=== PATIENT | male | born 1935 | race Caucasian/White ===

== ENCOUNTER 2017-10-25 14:04 | Inpatient (IN) | payer MEDICARE, OTHER, SELFPAY ==
[2017-10-25] VITALS (25 sets, daily range): BP systolic 123–181; BP diastolic 60–79; PULSE 70–102; RESP 12–33; TEMP 36.8–36.9; O2SAT 79–98; BMI 34.6; BMI 33.0
--- NOTE | 2017-10-25 14:23 | RAD_ITS ---
STUDY: X-RAY CHEST REASON FOR EXAM: Male, 82 years old. Shortness of breath. TECHNIQUE: Single AP portable view of the chest. COMPARISON: Comparison is made with prior study dated April 26, 2010. FINDINGS: EKG electrodes are seen. There now is evidence of a multiple patchy nodular infiltrates in the right lung and to a lesser degree in the left lung. Bilateral pneumonic infiltrates should be ruled out. Underlying pulmonary metastasis cannot be excluded. Radiographic follow-up is recommended. Sternal cerclage wires and vascular clips are present from a prior sternotomy and coronary artery bypass graft procedure (CABG). Moderate cardiomegaly. A left-sided unipolar pacemaker is seen. Normal mediastinum and amauri. Normal visualized pulmonary arteries. There is atherosclerotic calcification of the aortic arch with tortuosity. Normal visualized thoracic spine. There is degenerative osteoarthritis of the bilateral shoulders. There is no demonstrated abnormality of the visualized soft tissue structures of the upper abdomen. RAD/Chest 1 View (Portable) IMPRESSION: Patchy infiltrates with nodular appearance in the right lung as described and to a lesser degree on the left side. Bilateral pneumonic infiltrates should be ruled out. Underlying metastasis cannot be excluded. Radiographic follow-up is recommended. Electronically Signed: Paul Nair MD at 14:42 EDT Tel [phone], Service support ,
[2017-10-25] MEDS: Ipratropium/Albuterol Sulfate 3 ML AMPUL.NEB INHALATION ×3 (14:38→23:30)
[2017-10-25 14:46] LABS: Absolute Lymphocyte Count 0.58 X10^3/ul (0.83-4.51); Absolute Neutrophil Count 4.6 X10^3/uL (2.0-7.7); Basophil# 0.01 X10^3/uL; Basophil% 0.2 % (0-1); Hematocrit 34.7 % (40-54); Hemoglobin 11.2 g/dl (13.0-16.5); Lymphocyte # 0.58 X10^3/ul (4.0); Lymphocyte % 10.7 % (19-41); Mean Corp Hgb Conc 32.3 g/gl (32-36); Mean Corpuscular Volume 89.9 fL (80-94); Mean Platelet Vol. 9.2 fl (6.2-12.0); Monocyte# 0.26 X10^3/uL; Monocyte% 4.8 % (0-10); Neutrophil # 4.55 X10^3/uL (2.7-7.7); Neutrophil % 84.1 % (47-70); Platelet Count 170 K/mm3 (150-450); RBC Distribution Width CV 14.3 % (11.6-14.6); RBC Distribution Width SD 46.9 fl (35.1-43.9); Red Blood Count 3.86 M/mm3 (4.6-6.2); White Blood Count 5.4 K/mm3 (4.4-11.0)
[2017-10-25 14:49] LABS: Differential Indicated SCAN CRITERIA MET; POSITIVE COUNT NO; POSITIVE DIFFERENTIAL YES; POSITIVE MORPHOLOGY YES
[2017-10-25 14:52] LABS: Anion Gap 12 (5-15); BUN 30 mg/dL (7-18); BUN/Creat Ratio 20.8 RATIO (10-20); Calcium,Total 8.2 mg/dL (8.5-10.1); Chloride 99 mmol/L (98-107); Creatinine, Serum 1.44 mg/dL (0.70-1.30); EST Glomerular Filtration Rate 50 mL/min (>60); Est Glom Filt Rate - Afr Amer 61 mL/min (>60); Estimated Creatinine Clearance 46.24 ml/min; Glucose 307 mg/dL (74-106); Potassium 3.6 mmol/L (3.5-5.1); Sodium Level 136 mmol/L (136-145)
[2017-10-25 15:12] LABS: BNP,B-Type NATRIURETIC PEPTIDE 269.5 pg/mL (0-100)
[2017-10-25 15:20] LABS: International Normalized Ratio 6.6
[2017-10-25 15:34] LABS: Lactic Acid 2.9 mmol/L (0.4-2.0)
[2017-10-25] MEDS: Ceftriaxone 1 GM/50 ML BAG IV ×2 (15:59→17:59)
--- NOTE | 2017-10-25 16:14 | HP.PCM_ITS ---
Problem List (1) Severe sepsis Status: Acute (2) Supratherapeutic INR Status: Acute (3) Persistent atrial fibrillation Status: Chronic History of Present Illness Date of Admission: 10/25/17 The patient is a 82 year old M with a significant history of A. fib, pacemaker, aortic valve repair, type 2 diabetes, hypertension, CAD status post stents who presented because of progressively worsening shortness of breath ?2-3 days. His shortness of breath is exacerbated with walking short distances like going to the bathroom. Associated with his symptoms is orthopnea. At the ED patient oxygen saturation was in the 70s. Patient was placed on the BiPAP with improvement. However the patient requested that his BiPAP should be discontinued since he could not tolerate it. And he was subsequently placed on Ventimask with saturation of 90-91%. Past Medical History Past Medical History (Chronic Problems): Chronic Problems Persistent atrial fibrillation (Chronic) Allergies metoprolol [From Toprol XL] Allergy (Verified 10/25/17 14:11) Other morphine Allergy (Verified 10/25/17 14:11) Other simvastatin Allergy (Verified 10/25/17 14:11) Other spironolactone Allergy (Verified 10/25/17 14:11) Other sulfamethoxazole [From Bactrim] Adverse Reaction (Verified 10/25/17 14:11) Unknown trimethoprim [From Bactrim] Adverse Reaction (Verified 10/25/17 14:11) Unknown Home Medications: Ambulatory Orders Medication Instructions Recorded Aspirin [Aspirin EC] 81 mg PO BREAKFAST 04/26/16 Atorvastatin Calcium [Lipitor] 80 mg PO QHS 04/26/16 Furosemide [Lasix] 40 mg PO BID 04/26/16 Glimepiride [Amaryl] 8 mg PO DAILY 04/26/16 Insulin Lispro [Humalog Kwikpen] 16 unit SQ TID 04/26/16 Labetalol [Trandate] 100 mg PO BID 04/26/16 Losartan Potassium [Cozaar] 25 mg PO DAILY 04/26/16 Tamsulosin HCl [Flomax] 0.4 mg PO BID 04/26/16 Zolpidem Tartrate [Ambien 5 mg PO QHS PRN PRN 04/26/16 (Generic)] Insulin Glargine [Lantus SoloStar 58 units SQ QHS 10/25/17 Pen] Polyethylene Glycol 3350 [[id number]] 17 gm PO DAILY 10/25/17 Potassium Chloride [Klor-Con M20] 20 meq PO DAILY 10/25/17 Warfarin Sodium 5 mg PO DAILY 10/25/17 Warfarin Sodium [Warfarin Sodium] 4 mg PO DAILY 10/25/17 Surgical History: - - Heart valve replacement. Smoking Status: Former smoker Alcohol: None Drugs: None Review of Systems Constitutional: Reports: Fatigue HEENT: Denies: Head Aches, Sinus Congestion, Sinus Drainage Cardiovascular: Reports: Orthopnea Respiratory: Reports: Shortness of breath at rest, Shortness of breath upon exertion, Sputum production Gastrointestinal: Denies: Abdominal Pain, Nausea, Vomiting Genitourinary: Denies: Dysuria Musculoskeletal: Denies: Joint Pain, Joint Tenderness Skin: Denies: Rash, Wounds Neurological: Denies: Numbness, Tingling, Focal weakness Psychiatric: Denies: Anxiety, Depression, Homicidal Ideations, Suicidal Ideations Hematologic/ Lymphatic: Denies: Easy Bruising, Easy Bleeding VTE Information - Inpt Only VTE Present on Admission: No VTE Mechan Device Prophylaxis: SCD's Reason prophylaxis not ordered:: Medical Contraindication Patient Problems: Active and Suspected Problems Severe sepsis (Acute) Supratherapeutic INR (Acute) - Physical Exam General: Alert, Oriented x3, Cooperative HEENT: Atraumatic, PERRLA, EOMI, Normocephalic Neck: Supple, No JVD, Negative Carotid Bruits Lungs: Diminished Cardiovascular: Regular rate, No murmurs Abdomen: Bowel Sounds Present, Soft, Non Tender Extremities: - - Cyanotic lower extremities Skin: No rashes, No breakdown Musculoskeletal: No Tenderness to Palpation of Joints or Extremities Neurological: Cranial nerves II-XII grossly intact Psych/Mental Status: Anxious Vital Signs Temp Pulse Resp BP Pulse Ox 98.2 F 73 20 H 123/63 H 94 10/25/17 14:05 10/25/17 16:04 10/25/17 16:04 10/25/17 16:04 10/25/17 16:04 Oxygen Flow Rate (L/min) 6 Oxygen Delivery Method Venturi Mask Weight: 119 kg Body Mass Index (BMI) 34.6 Laboratory Tests Past 24 Hrs 10/25/17 10/25/17 10/25/17 14:15 14:15 14:15 WBC 5.4 RBC 3.86 L Hgb 11.2 L Hct 34.7 L MCV 89.9 MCH 29.0 MCHC 32.3 RDW 14.3 RDW Differential 46.9 H Plt Count 170 MPV 9.2 Immature Gran % (Auto) 0.200 Neut % (Auto) 84.1 H Lymph % (Auto) 10.7 L [place] % (Auto) 4.8 Eos % (Auto) 0.0 Baso % (Auto) 0.2 Absolute Neuts (auto) 4.6 Absolute Lymphs (auto) 0.58 L Total Counted Not Reportable Differential Comment COMMENT PT 58.0 H INR 6.6 H* Sodium 136 Potassium 3.6 Chloride 99 Carbon Dioxide 25.0 Anion Gap 12 BUN 30 H Creatinine 1.44 H Estim Creat Clear Calc 46.24 Est GFR (MDRD) Af Amer 61 Est GFR (MDRD) Non-Af 50 L BUN/Creatinine Ratio 20.8 H Glucose 307 H Lactic Acid Calcium 8.2 L Troponin I 0.027 B-Natriuretic Peptide 10/25/17 10/25/17 14:15 14:52 WBC RBC Hgb Hct MCV MCH MCHC RDW RDW Differential Plt Count MPV Immature Gran % (Auto) Neut % (Auto) Lymph % (Auto) [place] % (Auto) Eos % (Auto) Baso % (Auto) Absolute Neuts (auto) Absolute Lymphs (auto) Total Counted Differential Comment PT INR Sodium Potassium Chloride Carbon Dioxide Anion Gap BUN Creatinine Estim Creat Clear Calc Est GFR (MDRD) Af Amer Est GFR (MDRD) Non-Af BUN/Creatinine Ratio Glucose Lactic Acid 2.9 H Calcium Troponin I B-Natriuretic Peptide 269.5 H Assessment/Plan All Active Problems Severe sepsis (Acute) Supratherapeutic INR (Acute) 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) Type 2 diabetes mellitus with other circulatory complications (Acute) Venous ulcer of right leg (Resolved) Venous (peripheral) insufficiency (Resolved) Patient is a 82 year old M with a significant history of HTN, A. fib, pacemaker , aortic valve repair, type 2 diabetes, hypertension, CAD status post stents who presented because of progressively worsening shortness of breath ?2-3 days. Severe sepsis secondary to community-acquired pneumonia (multilobar pneumonia) Lactic acid: 2.8>2.9 RR ~ 30s Tachycardia on admission Severe hypoxia with oxygen saturation in 70s Blood culture ?2 is pending BNP 269.5 Chest x-ray was read as patchy infiltrates with nodular appearance in the right lung and to a lesser degree on the left side. Reading could not exclude exclude underlying metastasis. Radiographic follow-up was recommended. Respiratory Gram stain and culture pending Azithromycin and ceftriaxone continued IV hydration. DuoNeb scheduled. Albuterol as needed Aggressive pulmonary toileting Legionella antigen screen and Strep antigen ordered Prednisone due to severity of his condition. TESSIE creatinine 1.44 Creatinine on 05/26/2016 was 0.95. This could be due to sepsis or prerenal. IV hydration Home losartan was discontinued Avoid nephrotoxic Diabetes mellitus with acute hyperglycemia Blood glucose at admission was at 307 Lantus, prandial Lispro, correction Lispro and Amaryl. Adjust as necessary Supratherapeutic INR INR: 6.6 Hold Coumadin. PT/INR daily. Hypertension Continue home labetalol Losartan discontinued secondary to [place] I. Amlodipine added. Hydralazine as needed. A. fib Coumadin on hold as above Labetalol continued DVT prophylaxis Supratherapeutic on Coumadin. SCD. Code Visit Inpatient E&M: 44126 Init Hosp L2
--- NOTE | 2017-10-25 17:38 | NURSING ---
received paper report at 173, called down to ER at 173 requested to speak with nurse taking care of patient to let her know she could bring the patient up whenever she is ready. Asked if they could draw the lactic acid since it has to be drawn before 1751 and Diane YANG RN stated that they would draw the lactic and then come right up with the patient.
[2017-10-25 17:51] LABS: Bedside Glucose 261 mg/dL (70-110)
[2017-10-25] MEDS: Ondansetron 4 MG/2 ML Vial IV (18:08)
[2017-10-25] MEDS: Morphine 4 MG/ML Syringe IV (18:08)
--- NOTE | 2017-10-25 18:33 | NURSING ---
1833 patient arrived on unit from ER
--- NOTE | 2017-10-25 18:50 | ED.RN ---
at 1740 pt assisted up to bedside commode by another rn. pt then complained of abdominal pain, morphine and zofran given. pt assisted back into bed. pt 02 sat 88% on nrb at 15l. pt placed back onto bipap per dr. becerra order. pt now resting. denies pain. will continue to monitor.
[2017-10-25 19:01] LABS: Reflex Lactate? Y
[2017-10-25] MEDS: 0.9% Normal Saline 1,000 ML 75 ML IV (19:22)
--- NOTE | 2017-10-25 19:25 | NURSING ---
reviewed D Malcolm RN charting and agree with assessment findings
[2017-10-25 19:51] LABS: Lactic Acid 2.8 mmol/L (0.4-2.0)
[2017-10-25 20:25] LABS: M R Staph aureus DNA By PCR Negative (Negative); Probe Check PASS; Specimen Processing Control PASS
[2017-10-25] MEDS: amLODIPine 10 MG Tablet PO (21:25)
[2017-10-25] MEDS: Insulin Lispro 100 UNIT/ML INSULN.PEN SQ (21:26)
[2017-10-25] MEDS: guaiFENesin 1,200 MG Tablet 1200 MG PO (21:28)
[2017-10-25] MEDS: Atorvastatin Calcium 80 MG Tablet PO (21:28)
[2017-10-25] MEDS: Acetaminophen 325 MG Tablet 650 MG PO (21:29)
[2017-10-25] MEDS: Labetalol 100 MG Tablet PO (21:29)
[2017-10-25 21:46] LABS: Bedside Glucose 249 mg/dL (70-110)
[2017-10-25 22:33] LABS: Lactic Acid 2.1 mmol/L (0.4-2.0)
[2017-10-26] VITALS (38 sets, daily range): BP systolic 110–174; BP diastolic 53–100; PULSE 66–99; RESP 12–31; TEMP 36.5–37; O2SAT 85–99
[2017-10-26 01:48] LABS: Reflex Lactate? Y
--- NOTE | 2017-10-26 02:00 | NURSING ---
Pt refusing SCDs at this time despite much education. Pt verbalizing understanding of indications for SCDs as well as possible consequences as a result of refusal.
--- NOTE | 2017-10-26 03:08 | NURSING ---
Pt has removed NRB mask and states I can't wear it anymore pt also refusing to wear BiPAP. Much education provided by this RN and YULY Ricardo. Pt verbalizing understanding and continues to refuse to wear either NRB or BiPAP. Breathing continues to be labored with a congestive cough, pulse ox 74% on RA. 6L NC applied pt tolerating at this time, pulse ox increasing to 87%.
[2017-10-26] MEDS: Ipratropium/Albuterol Sulfate 3 ML AMPUL.NEB INHALATION ×5 (03:11→18:49)
--- NOTE | 2017-10-26 03:12 | CPS ---
pt refuses to wear bipap and nonrebreather mask... RN aware
[2017-10-26] MEDS: 0.9% NaCl Peripheral Flush Adult/Peds IV ×8 (04:52→21:27)
--- NOTE | 2017-10-26 05:01 | CPS ---
pt keeps taking off bipap mask, RN aware
[2017-10-26 05:02] LABS: Hematocrit 31.4 % (40-54); Hemoglobin 10.2 g/dl (13.0-16.5); Mean Corp Hgb Conc 32.5 g/gl (32-36); Mean Corpuscular Hgb 29.6 pg (27.0-32.0); Mean Platelet Vol. 9.2 fl (6.2-12.0); Platelet Count 164 K/mm3 (150-450); RBC Distribution Width CV 14.1 % (11.6-14.6); RBC Distribution Width SD 46.2 fl (35.1-43.9); Red Blood Count 3.45 M/mm3 (4.6-6.2); White Blood Count 7.1 K/mm3 (4.4-11.0)
--- NOTE | 2017-10-26 05:03 | CPS ---
pt keeps taking off bipap mask, RN aware.
[2017-10-26 05:17] LABS: Scan Indicated on CBC? Y/N NO
[2017-10-26 05:21] LABS: Anion Gap 8 (5-15); BUN 37 mg/dL (7-18); BUN/Creat Ratio 28.7 RATIO (10-20); Calcium,Total 7.6 mg/dL (8.5-10.1); Chloride 98 mmol/L (98-107); Creatinine, Serum 1.29 mg/dL (0.70-1.30); EST Glomerular Filtration Rate 57 mL/min (>60); Est Glom Filt Rate - Afr Amer 69 mL/min (>60); Estimated Creatinine Clearance 51.61 ml/min; Glucose 226 mg/dL (74-106); Potassium 4.1 mmol/L (3.5-5.1); Sodium Level 139 mmol/L (136-145)
[2017-10-26 05:24] LABS: Lactic Acid 1.8 mmol/L (0.4-2.0)
--- NOTE | 2017-10-26 06:26 | PCM.CON.CC ---
Problem List (1) Acute respiratory failure with hypoxia Status: Acute (2) Pneumonia Status: Acute Qualifiers: Pneumonia type: due to unspecified organism Laterality: right Lung location: lower lobe of lung Qualified Code(s): J18.1 - Lobar pneumonia, unspecified organism (3) Coronary artery disease Status: Acute Qualifiers: Coronary Disease-Associated Artery/Lesion type: [place] artery [place] vs. 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 Patient reportedly has had progressive shortness of breath over the last 2 days and was unable to walk to the bathroom, so came to the ER for evaluation. Patient has noted yellow to green sputum over the last 24-48 hours. Patient states this has increased in volume. Patient does not report any sick contacts that he is aware of. On arrival to the emergency department, patient was noted to have saturations in the 70s. Patient was placed on BiPAP therapy with some improvement. Patient was initiated on antibiotics after chest x-ray showed right-sided infiltrates. Patient was transferred to the intensive care unit for further monitoring. While in the intensive care unit, patient has been refusing BiPAP therapy. Patient was initiated on Ventimask, but also refused this. Patient is currently with marginal saturations on 11 L nasal cannula. Patient continues to report dyspnea at rest. Patient denies any nausea, vomiting or diarrhea. No rashes been reported. Patient has not been treated with antibiotics in the last 6 months. This morning, patient did report mild hemoptysis. Patient has stated that he does not want to be intubated or receive CPR. Patient typically receives his care at [facility]. 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 Patient does report a cardiac history status post coronary artery bypass surgery 5-6 years ago. Patient is on chronic anticoagulation with Coumadin therapy secondary to persistent A. fib. Patient reports poor experiences at [facility] in the past and is requesting transfer to [facility], if I talk to my and she agrees. Patient is not very cooperative with remaining review of systems. Past Medical History Past Medical History (Chronic Problems): Chronic Problems Persistent atrial fibrillation (Chronic) 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) Venous (peripheral) insufficiency (Chronic) Allergies metoprolol [From Toprol XL] Allergy (Verified 10/25/17 14:11) Other morphine Allergy (Verified 10/25/17 14:11) Other simvastatin Allergy (Verified 10/25/17 14:11) Other spironolactone Allergy (Verified 10/25/17 14:11) Other sulfamethoxazole [From Bactrim] Adverse Reaction (Verified 10/25/17 14:11) Unknown trimethoprim [From Bactrim] Adverse Reaction (Verified 10/25/17 14:11) Unknown Home Medications: Ambulatory Orders Medication Instructions Recorded Aspirin [Aspirin EC] 81 mg PO BREAKFAST 04/26/16 Atorvastatin Calcium [Lipitor] 80 mg PO QHS 04/26/16 Furosemide [Lasix] 40 mg PO BID 04/26/16 Glimepiride [Amaryl] 8 mg PO DAILY 04/26/16 Insulin Lispro [Humalog Kwikpen] 16 unit SQ TID 04/26/16 Labetalol [Trandate] 100 mg PO BID 04/26/16 Losartan Potassium [Cozaar] 25 mg PO DAILY 04/26/16 Tamsulosin HCl [Flomax] 0.4 mg PO BID 04/26/16 Zolpidem Tartrate [Ambien 5 mg PO QHS PRN PRN 04/26/16 (Generic)] Insulin Glargine [Lantus SoloStar 58 units SQ QHS 10/25/17 Pen] Polyethylene Glycol 3350 [[id number]] 17 gm PO DAILY 10/25/17 Potassium Chloride [Klor-Con M20] 20 meq PO DAILY 10/25/17 Warfarin Sodium 5 mg PO DAILY 10/25/17 Warfarin Sodium [Warfarin Sodium] 4 mg PO DAILY 10/25/17 Surgical History: - - Heart valve replacement. Smoking Status: Former smoker Alcohol: None Drugs: None Review of Systems Comment: See HPI Patient Problems: Active and Suspected Problems Severe sepsis (Acute) Supratherapeutic INR (Acute) Acute respiratory failure with hypoxia (Acute) Pneumonia (Acute) Coronary artery disease (Acute) Objective: Chest x-ray was personally reviewed and shows extensive right-sided infiltrates - Physical Exam General: Alert, Oriented x3, Cooperative, - - Moderate respiratory distress with mild accessory muscle use. Appears stated age. HEENT: Atraumatic, PERRLA, EOMI, Normocephalic, - - No scleral icterus or injection noted. Oral: Moist Mucosa, No Gingival or Mucosal Lesions/ Ulcerations Neck: Supple, No JVD, No Nodes, Trachea Midline Lungs: No rales, Diminished, Rhonchi - Right, Wheezes - Bilateral, - - Symmetric expansion Cardiovascular: Normal S1, Normal S2, Irregular Rate, Murmur - Grade 2 out of 6 systolic ejection murmur at the right sternal border, No rub noted, No Gallop Abdomen: Bowel Sounds Present, Soft, Non Tender, Non-Distended Extremities: No clubbing, No cyanosis, No edema, Capillary Refill Less than 3 Seconds Skin: - - Vascular insufficiency changes of bilateral lower extremities. Well healed sternotomy scar Musculoskeletal: No Tenderness to Palpation of Joints or Extremities Lymphatic: No Cervical, Supraclavicular, or Inguinal Adenopathy Neurological: Cranial nerves II-XII grossly intact, Neuro grossly intact, Motor Exam 5/5 strength throughout Psych/Mental Status: Anxious, Impulsive, Restless Vital Signs Temp Pulse Resp BP Pulse Ox 36.5 C L 79 21 H 128/61 H 92 10/26/17 05:00 10/26/17 05:00 10/26/17 05:00 10/26/17 05:00 10/26/17 05:00 Oxygen Flow Rate (L/min) 11 Oxygen Delivery Method Nasal Cannula Weight: 116.2 kg Body Mass Index (BMI) 33.0 Intake and Output for Last 24 Hours 10/24/17 10/25/17 10/26/17 23:59 23:59 23:59 Intake Total 475.6 / 475.6 Balance 475.6 / 475.6 Laboratory Tests Past 24 Hrs 10/25/17 10/25/17 10/25/17 18:00 18:53 21:40 WBC RBC Hgb Hct MCV MCH MCHC RDW RDW Differential Plt Count MPV Sodium Potassium Chloride Carbon Dioxide Anion Gap BUN Creatinine Estim Creat Clear Calc Est GFR (MDRD) Af Amer Est GFR (MDRD) Non-Af BUN/Creatinine Ratio Glucose Lactic Acid 2.8 H 2.1 H Calcium MRSA (PCR) Negative 10/26/17 10/26/17 10/26/17 04:45 04:45 04:45 WBC 7.1 RBC 3.45 L Hgb 10.2 L Hct 31.4 L MCV 91.0 MCH 29.6 MCHC 32.5 RDW 14.1 RDW Differential 46.2 H Plt Count 164 MPV 9.2 Sodium 139 Potassium 4.1 Chloride 98 Carbon Dioxide 33.0 H Anion Gap 8 BUN 37 H Creatinine 1.29 Estim Creat Clear Calc 51.61 Est GFR (MDRD) Af Amer 69 Est GFR (MDRD) Non-Af 57 L BUN/Creatinine Ratio 28.7 H Glucose 226 H Lactic Acid 1.8 Calcium 7.6 L MRSA (PCR) POC Glucose 10/25/17 21:19 POC Glucose 249 H Clinical Impression(s) from Imaging Studies Chest X-Ray 10/25/17 14:23 IMPRESSION: Patchy infiltrates with nodular appearance in the right lung as described and to a lesser degree on the left side. Bilateral pneumonic infiltrates should be ruled out. Underlying metastasis cannot be excluded. Radiographic follow-up is recommended. Electronically Signed: Paul Nair MD at 14:42 EDT Tel [phone], Service support , Assessment/Plan Active and Suspected Problems Severe sepsis (Acute) Supratherapeutic INR (Acute) Acute respiratory failure with hypoxia (Acute) Pneumonia (Acute) Coronary artery disease (Acute) RECOMMENDATIONS: 1. BiPAP rescue if patient agreeable 2. Continue antibiotics and bronchodilators. Transition to IV steroids 3. Wean oxygen as tolerated 4. Gentle rehydration 5. Monitor sliding scale insulin, discontinue Amaryl 6. Recheck INR, administer FFP if hemoptysis worsens IMPRESSSIONS: 1. Acute hypoxic respiratory failure secondary to probable community-acquired pneumonia Patient with a patchy dense infiltrate noted on the right-hand side. Cannot exclude underlying metastasis, but patient is reporting purulent sputum. Patient is on community-acquired antibiotics and bronchodilators. Will transition to IV steroids as patient has respiratory rates that may preclude p.o. intake. Patient would benefit from BiPAP rescue, but is refusing that at this time. Patient is very clear that he does not want to be intubated for any reason. Hemoptysis likely secondary to supratherapeutic INR. Would correct INR prior to any bronchial artery intervention. 2. Acute kidney injury Patient previously with normal renal function in May. Presentation creatinine of 1.44, likely secondary to prerenal etiology. Patient is receiving IV hydration. Will need to be closely monitored given patient's history of coronary artery disease and atrial fibrillation. No indication for renal replacement therapy at this time. 3. Persistent A. fib/coronary artery disease status post CABG/supratherapeutic INR Patient with supratherapeutic INR at this time. Unclear if this is related to the acute illness versus Coumadin dosing. Patient does state that he tends to run high. Repeat INR has been scheduled for this morning. Patient may require FFP to avoid any significant bleeding complications given the development of hemoptysis this morning. 4. Diabetes mellitus type 2 Patient will likely not be able to tolerate much p.o. intake given respiratory rate. Patient is currently on Lantus, Amaryl and lispro. Will get rid of Amaryl and follow with sliding scale insulin. 5. Agitation/advanced age/hypertension/hypercholesterolemia/BPH Complicates care, management, recovery and prognosis. Patient is very clear that he is a DNR Comfort Care arrest without intubation. Antihypertensive medications can be continued. May need to transition to IV alternatives if respiratory rate remains elevated. TIME: 34 minutes critical care time spent addressing patient's acute hypoxic respiratory failure, acute kidney injury, supratherapeutic INR, review of all data and collaboration with care team. (5:30 AM to 6:30 AM) Code Visit 9xxxx: [id number] Critical care first hour
--- NOTE | 2017-10-26 06:36 | CON.PCM_ITS ---
Problem List (1) Acute respiratory failure with hypoxia Status: Acute (2) Pneumonia Status: Acute Qualifiers: Pneumonia type: due to unspecified organism Laterality: right Lung location: lower lobe of lung Qualified Code(s): J18.1 - Lobar pneumonia, unspecified organism (3) Coronary artery disease Status: Acute Qualifiers: Coronary Disease-Associated Artery/Lesion type: [place] artery [place] vs. 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 Patient reportedly has had progressive shortness of breath over the last 2 days and was unable to walk to the bathroom , so came to the ER for evaluation. Patient has noted yellow to green sputum over the last 24-48 hours. Patient states this has increased in volume. Patient does not report any sick contacts that he is aware of. On arrival to the emergency department, patient was noted to have saturations in the 70s. Patient was placed on BiPAP therapy with some improvement. Patient was initiated on antibiotics after chest x-ray showed right-sided infiltrates. Patient was transferred to the intensive care unit for further monitoring. While in the intensive care unit, patient has been refusing BiPAP therapy. Patient was initiated on Ventimask, but also refused this. Patient is currently with marginal saturations on 11 L nasal cannula. Patient continues to report dyspnea at rest. Patient denies any nausea, vomiting or diarrhea. No rashes been reported. Patient has not been treated with antibiotics in the last 6 months. This morning, patient did report mild hemoptysis. Patient has stated that he does not want to be intubated or receive CPR. Patient typically receives his care at [facility]. 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 Patient does report a cardiac history status post coronary artery bypass surgery 5-6 years ago. Patient is on chronic anticoagulation with Coumadin therapy secondary to persistent A. fib. Patient reports poor experiences at [facility] in the past and is requesting transfer to [facility], if I talk to my and she agrees. Patient is not very cooperative with remaining review of systems. Past Medical History Past Medical History (Chronic Problems): Chronic Problems Persistent atrial fibrillation (Chronic) 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) Venous (peripheral) insufficiency (Chronic) Allergies metoprolol [From Toprol XL] Allergy (Verified 10/25/17 14:11) Other morphine Allergy (Verified 10/25/17 14:11) Other simvastatin Allergy (Verified 10/25/17 14:11) Other spironolactone Allergy (Verified 10/25/17 14:11) Other sulfamethoxazole [From Bactrim] Adverse Reaction (Verified 10/25/17 14:11) Unknown trimethoprim [From Bactrim] Adverse Reaction (Verified 10/25/17 14:11) Unknown Home Medications: Ambulatory Orders Medication Instructions Recorded Aspirin [Aspirin EC] 81 mg PO BREAKFAST 04/26/16 Atorvastatin Calcium [Lipitor] 80 mg PO QHS 04/26/16 Furosemide [Lasix] 40 mg PO BID 04/26/16 Glimepiride [Amaryl] 8 mg PO DAILY 04/26/16 Insulin Lispro [Humalog Kwikpen] 16 unit SQ TID 04/26/16 Labetalol [Trandate] 100 mg PO BID 04/26/16 Losartan Potassium [Cozaar] 25 mg PO DAILY 04/26/16 Tamsulosin HCl [Flomax] 0.4 mg PO BID 04/26/16 Zolpidem Tartrate [Ambien 5 mg PO QHS PRN PRN 04/26/16 (Generic)] Insulin Glargine [Lantus SoloStar 58 units SQ QHS 10/25/17 Pen] Polyethylene Glycol 3350 [[id number]] 17 gm PO DAILY 10/25/17 Potassium Chloride [Klor-Con M20] 20 meq PO DAILY 10/25/17 Warfarin Sodium 5 mg PO DAILY 10/25/17 Warfarin Sodium [Warfarin Sodium] 4 mg PO DAILY 10/25/17 Surgical History: - - Heart valve replacement. Smoking Status: Former smoker Alcohol: None Drugs: None Review of Systems Comment: See HPI Patient Problems: Active and Suspected Problems Severe sepsis (Acute) Supratherapeutic INR (Acute) Acute respiratory failure with hypoxia (Acute) Pneumonia (Acute) Coronary artery disease (Acute) Objective: Chest x-ray was personally reviewed and shows extensive right-sided infiltrates - Physical Exam General: Alert, Oriented x3, Cooperative, - - Moderate respiratory distress with mild accessory muscle use. Appears stated age. HEENT: Atraumatic, PERRLA, EOMI, Normocephalic, - - No scleral icterus or injection noted. Oral: Moist Mucosa, No Gingival or Mucosal Lesions/ Ulcerations Neck: Supple, No JVD, No Nodes, Trachea Midline Lungs: No rales, Diminished, Rhonchi - Right, Wheezes - Bilateral, - - Symmetric expansion Cardiovascular: Normal S1, Normal S2, Irregular Rate, Murmur - Grade 2 out of 6 systolic ejection murmur at the right sternal border, No rub noted, No Gallop Abdomen: Bowel Sounds Present, Soft, Non Tender, Non-Distended Extremities: No clubbing, No cyanosis, No edema, Capillary Refill Less than 3 Seconds Skin: - - Vascular insufficiency changes of bilateral lower extremities. Well healed sternotomy scar Musculoskeletal: No Tenderness to Palpation of Joints or Extremities Lymphatic: No Cervical, Supraclavicular, or Inguinal Adenopathy Neurological: Cranial nerves II-XII grossly intact, Neuro grossly intact, Motor Exam 5/5 strength throughout Psych/Mental Status: Anxious, Impulsive, Restless Vital Signs Temp Pulse Resp BP Pulse Ox 36.5 C L 79 21 H 128/61 H 92 10/26/17 05:00 10/26/17 05:00 10/26/17 05:00 10/26/17 05:00 10/26/17 05:00 Oxygen Flow Rate (L/min) 11 Oxygen Delivery Method Nasal Cannula Weight: 116.2 kg Body Mass Index (BMI) 33.0 Intake and Output for Last 24 Hours 10/24/17 10/25/17 10/26/17 23:59 23:59 23:59 Intake Total 475.6 / 475.6 Balance 475.6 / 475.6 Laboratory Tests Past 24 Hrs 10/25/17 10/25/17 10/25/17 18:00 18:53 21:40 WBC RBC Hgb Hct MCV MCH MCHC RDW RDW Differential Plt Count MPV Sodium Potassium Chloride Carbon Dioxide Anion Gap BUN Creatinine Estim Creat Clear Calc Est GFR (MDRD) Af Amer Est GFR (MDRD) Non-Af BUN/Creatinine Ratio Glucose Lactic Acid 2.8 H 2.1 H Calcium MRSA (PCR) Negative 10/26/17 10/26/17 10/26/17 04:45 04:45 04:45 WBC 7.1 RBC 3.45 L Hgb 10.2 L Hct 31.4 L MCV 91.0 MCH 29.6 MCHC 32.5 RDW 14.1 RDW Differential 46.2 H Plt Count 164 MPV 9.2 Sodium 139 Potassium 4.1 Chloride 98 Carbon Dioxide 33.0 H Anion Gap 8 BUN 37 H Creatinine 1.29 Estim Creat Clear Calc 51.61 Est GFR (MDRD) Af Amer 69 Est GFR (MDRD) Non-Af 57 L BUN/Creatinine Ratio 28.7 H Glucose 226 H Lactic Acid 1.8 Calcium 7.6 L MRSA (PCR) POC Glucose 10/25/17 21:19 POC Glucose 249 H Clinical Impression(s) from Imaging Studies Chest X-Ray 10/25/17 14:23 IMPRESSION: Patchy infiltrates with nodular appearance in the right lung as described and to a lesser degree on the left side. Bilateral pneumonic infiltrates should be ruled out. Underlying metastasis cannot be excluded. Radiographic follow-up is recommended. Electronically Signed: Paul Nair MD at 14:42 EDT Tel [phone], Service support , Assessment/Plan Active and Suspected Problems Severe sepsis (Acute) Supratherapeutic INR (Acute) Acute respiratory failure with hypoxia (Acute) Pneumonia (Acute) Coronary artery disease (Acute) RECOMMENDATIONS: 1. BiPAP rescue if patient agreeable 2. Continue antibiotics and bronchodilators. Transition to IV steroids 3. Wean oxygen as tolerated 4. Gentle rehydration 5. Monitor sliding scale insulin, discontinue Amaryl 6. Recheck INR, administer FFP if hemoptysis worsens IMPRESSSIONS: 1. Acute hypoxic respiratory failure secondary to probable community- acquired pneumonia Patient with a patchy dense infiltrate noted on the right-hand side. Cannot exclude underlying metastasis, but patient is reporting purulent sputum. Patient is on community-acquired antibiotics and bronchodilators. Will transition to IV steroids as patient has respiratory rates that may preclude p.o. intake. Patient would benefit from BiPAP rescue, but is refusing that at this time. Patient is very clear that he does not want to be intubated for any reason. Hemoptysis likely secondary to supratherapeutic INR. Would correct INR prior to any bronchial artery intervention. 2. Acute kidney injury Patient previously with normal renal function in May. Presentation creatinine of 1.44, likely secondary to prerenal etiology. Patient is receiving IV hydration. Will need to be closely monitored given patient's history of coronary artery disease and atrial fibrillation. No indication for renal replacement therapy at this time. 3. Persistent A. fib/coronary artery disease status post CABG/ supratherapeutic INR Patient with supratherapeutic INR at this time. Unclear if this is related to the acute illness versus Coumadin dosing. Patient does state that he tends to run high. Repeat INR has been scheduled for this morning. Patient may require FFP to avoid any significant bleeding complications given the development of hemoptysis this morning. 4. Diabetes mellitus type 2 Patient will likely not be able to tolerate much p.o. intake given respiratory rate. Patient is currently on Lantus, Amaryl and lispro. Will get rid of Amaryl and follow with sliding scale insulin. 5. Agitation/advanced age/hypertension/hypercholesterolemia/BPH Complicates care, management, recovery and prognosis. Patient is very clear that he is a DNR Comfort Care arrest without intubation. Antihypertensive medications can be continued. May need to transition to IV alternatives if respiratory rate remains elevated. TIME: 34 minutes critical care time spent addressing patient's acute hypoxic respiratory failure, acute kidney injury, supratherapeutic INR, review of all data and collaboration with care team. (5:30 AM to 6:30 AM) Code Visit 9xxxx: [id number] Critical care first hour
[2017-10-26 07:10] LABS: Prothrombin Time (Protime)PT. 79.7 SECONDS (11.7-14.9)
[2017-10-26 07:12] LABS: International Normalized Ratio 9.8
[2017-10-26] MEDS: Insulin Lispro 100 UNIT/ML INSULN.PEN 16 UNIT SQ ×2 (08:54→13:56)
[2017-10-26] MEDS: Insulin Lispro 100 UNIT/ML INSULN.PEN SQ ×4 (08:55→21:23)
[2017-10-26] MEDS: Tamsulosin HCl 0.4 MG Capsule PO ×2 (08:57→17:58)
[2017-10-26] MEDS: Aspirin E.C. 81 MG Tablet PO (08:57)
[2017-10-26 09:26] LABS: Bedside Glucose 237 mg/dL (70-110)
[2017-10-26] MEDS: Ceftriaxone 1 GM/50 ML BAG IV (09:30)
[2017-10-26] MEDS: amLODIPine 10 MG Tablet PO (09:30)
[2017-10-26] MEDS: guaiFENesin 1,200 MG Tablet 1200 MG PO ×2 (09:30→21:26)
[2017-10-26] MEDS: Labetalol 100 MG Tablet PO ×2 (09:31→21:26)
--- NOTE | 2017-10-26 10:03 | CASEMGMT ---
See RN CM Assessment Link. DC PLAN: anticipate Home with Home Oxygen. -Pt is on 11L NC presently (declining Bipap use). Anticipate will need Home oxygen on dc. Discussed options- [facility] is first choice. -will need home oxygen testing prior to discharge. Isaac JOYAN RN ACM
--- NOTE | 2017-10-26 11:12 | ED.VISSUMM ---
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 It is severe. Is worsened by exertion or laying flat. Has a cough productive yellow sputum without blood. No fever, chills, chest pain, or other complaints. Physical Examination: Vitals: 98.2, 161/62, 76, 17, 79% on room air which is hypoxic. General: Well-nourished and well-developed. Head: Normocephalic atraumatic. Neck: Supple, no lymphadenopathy. No JVD. Nontender. Cardiovascular: Regular rate and rhythm. No murmurs. Respiratory: Severe respiratory distress with rhonchi throughout bilaterally. Mild wheezing.. Abdominal: Soft, nontender, nondistended, normal bowel sounds. No guarding, rebound, or peritoneal signs. Back: Nontender. Extremities: Nontender, 2+ pitting edema of his lower extremity bilaterally. Skin: Normal color, no rash. Neurologic: Alert and oriented ?3. Cranial nerves II through XII are intact. Normal strength and sensation. Psych: Normal affect. Test Results: Chest x-ray shows bilateral infiltrates right greater than left. EKG is atrial fibrillation 84 with a corrected QT interval of 501. Troponin 0 0.027. PT CAR SANDER is 269.5. INR is 6.6. Lactic acid is 2.9. Chem-7 is more for BUN of 30, creatinine 1.44, glucose of 307, calcium of 8.2. CBC is more for an H&H 11.2 and 34.7, segmented neutrophils 84, lymphs lites of 11. Emergency Department Course and Treatment: Patient was placed on 50% Ventimask upon arrival to emergency department his pulse ox is 90%. He was placed on BiPAP and looks much improved. His pulse ox is 96% on this. However, the patient is very unhappy that he has BiPAP on and is intermittently refusing to continue this. A prolonged discussion with him about the possibility of intubation and he does not want this performed. I also discussed with him that being on BiPAP this is best way to avoid this and to improve the quickest. Treatment Plan: Patient was discussed with Dr.Agyepong and will be admitted to ICU for further evaluation and treatment. Disposition: Admitted in serious condition. Impression: 1. Severe sepsis. 2. Pneumonia, community-acquired. 3. Acute respiratory failure on BiPAP. 4. Coumadin coagulopathy. 5. DNR Comfort Care arrest. 6. Critical care time 30 minutes. This note was generated with [employer] dictation software. It may contain incorrect words, spelling, and punctuation that were not noted in review of the chart prior to signing ED Disposition - Plan for ED Patient: Disposition: Acute Care Hospital [facility] Chief Complaint: Shortness of Breath
--- NOTE | 2017-10-26 11:16 | ED.DCSUM_ITS ---
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 It is severe. Is worsened by exertion or laying flat. Has a cough productive yellow sputum without blood. No fever, chills, chest pain, or other complaints. Physical Examination: Vitals: 98.2, 161/62, 76, 17, 79% on room air which is hypoxic. General: Well-nourished and well-developed. Head: Normocephalic atraumatic. Neck: Supple, no lymphadenopathy. No JVD. Nontender. Cardiovascular: Regular rate and rhythm. No murmurs. Respiratory: Severe respiratory distress with rhonchi throughout bilaterally. Mild wheezing.. Abdominal: Soft, nontender, nondistended, normal bowel sounds. No guarding, rebound, or peritoneal signs. Back: Nontender. Extremities: Nontender, 2+ pitting edema of his lower extremity bilaterally. Skin: Normal color, no rash. Neurologic: Alert and oriented ?3. Cranial nerves II through XII are intact. Normal strength and sensation. Psych: Normal affect. Test Results: Chest x-ray shows bilateral infiltrates right greater than left. EKG is atrial fibrillation 84 with a corrected QT interval of 501. Troponin 0 0.027. PT WAREHOUSE TEAM LEADER is 269.5. INR is 6.6. Lactic acid is 2.9. Chem-7 is more for BUN of 30, creatinine 1.44, glucose of 307, calcium of 8.2. CBC is more for an H&H 11.2 and 34.7, segmented neutrophils 84, lymphs lites of 11. Emergency Department Course and Treatment: Patient was placed on 50% Ventimask upon arrival to emergency department his pulse ox is 90%. He was placed on BiPAP and looks much improved. His pulse ox is 96% on this. However, the patient is very unhappy that he has BiPAP on and is intermittently refusing to continue this. A prolonged discussion with him about the possibility of intubation and he does not want this performed. I also discussed with him that being on BiPAP this is best way to avoid this and to improve the quickest. Treatment Plan: Patient was discussed with Dr.Agyepong and will be admitted to ICU for further evaluation and treatment. Disposition: Admitted in serious condition. Impression: 1. Severe sepsis. 2. Pneumonia, community-acquired. 3. Acute respiratory failure on BiPAP. 4. Coumadin coagulopathy. 5. DNR Comfort Care arrest. 6. Critical care time 30 minutes. This note was generated with [employer] dictation software. It may contain incorrect words, spelling, and punctuation that were not noted in review of the chart prior to signing ED Disposition - Plan for ED Patient: Disposition: Acute Care Hospital [facility] Chief Complaint: Shortness of Breath
[2017-10-26] MEDS: Acetaminophen 325 MG Tablet 650 MG PO (11:57)
[2017-10-26 13:56] LABS: Bedside Glucose 216 mg/dL (70-110)
--- NOTE | 2017-10-26 14:29 | PN_ITS ---
Patient Problems: Active and Suspected Problems Severe sepsis (Acute) Supratherapeutic INR (Acute) Acute respiratory failure with hypoxia (Acute) Pneumonia (Acute) Coronary artery disease (Acute) Subjective: Patient was seen and examined today, he still on high flow nasal cannula oxygen , he refuses to wear BiPAP, at times he wants to explore going to another hospital as he does not like being here. Nursing states that the is going to come and talk with him today, she is not in favor him being transferred to another hospital's this time - Physical Exam General: Alert, Oriented x3, Cooperative, No apparent distress, Well developed, Well nourished HEENT: Atraumatic, PERRLA, EOMI, Normocephalic Oral: Moist Mucosa Neck: Supple, No JVD, No Nuchal Rigidity, Trachea Midline, Thyroid Normal Size and Texture Lungs: Clear to auscultation, No wheeze, Diminished, Rhonchi - Scattered expiratory rhonchi are noted bilaterally Cardiovascular: Regular Rhythm, PMI Normal, Irregular Rate, No rub noted Abdomen: Bowel Sounds Present, Soft, Non Tender, Non-Distended, No hernias noted Extremities: No clubbing, No cyanosis, No edema, Capillary Refill Less than 3 Seconds Skin: No rashes, No breakdown Musculoskeletal: No Tenderness to Palpation of Joints or Extremities Neurological: Cranial nerves II-XII grossly intact, Neuro grossly intact, Sensory exam intact to light touch and pain Psych/Mental Status: Normal Affect, Appropriate, Alert and oriented to time, place, person, mood and affect Vital Signs Temp Pulse Resp BP Pulse Ox 98.6 F 87 28 H 144/66 H 85 10/26/17 14:05 10/26/17 14:05 10/26/17 14:05 10/26/17 14:05 10/26/17 14:05 Oxygen Flow Rate (L/min) 11 Oxygen Delivery Method Nasal Cannula Weight: 116.2 kg Body Mass Index (BMI) 33.0 Intake and Output for Last 24 Hours 10/24/17 10/25/17 10/26/17 23:59 23:59 23:59 Intake Total 2671.6 / 2671.6 Output Total 850 / 850 Balance 1821.6 / 1821.6 Microbiology Past 72 Hours 10/26/17 10:15 Legionella Antigen - Final Urine, Clean Catch 10/26/17 10:15 Streptococcus pneumoniae Antigen (M - Final Urine, Clean Catch 10/25/17 18:49 Gram Stain - Final Sputum, Expectorated/Coughed Laboratory Tests Past 24 Hrs 10/25/17 10/25/17 10/25/17 18:00 18:53 21:40 WBC RBC Hgb Hct MCV MCH MCHC RDW RDW Differential Plt Count MPV PT INR Sodium Potassium Chloride Carbon Dioxide Anion Gap BUN Creatinine Estim Creat Clear Calc Est GFR (MDRD) Af Amer Est GFR (MDRD) Non-Af BUN/Creatinine Ratio Glucose Lactic Acid 2.8 H 2.1 H Calcium MRSA (PCR) Negative Blood Type 10/26/17 10/26/17 10/26/17 04:45 04:45 04:45 WBC 7.1 RBC 3.45 L Hgb 10.2 L Hct 31.4 L MCV 91.0 MCH 29.6 MCHC 32.5 RDW 14.1 RDW Differential 46.2 H Plt Count 164 MPV 9.2 PT INR Sodium 139 Potassium 4.1 Chloride 98 Carbon Dioxide 33.0 H Anion Gap 8 BUN 37 H Creatinine 1.29 Estim Creat Clear Calc 51.61 Est GFR (MDRD) Af Amer 69 Est GFR (MDRD) Non-Af 57 L BUN/Creatinine Ratio 28.7 H Glucose 226 H Lactic Acid 1.8 Calcium 7.6 L MRSA (PCR) Blood Type 10/26/17 10/26/17 06:15 07:30 WBC RBC Hgb Hct MCV MCH MCHC RDW RDW Differential Plt Count MPV PT 79.7 H INR 9.8 H* Sodium Potassium Chloride Carbon Dioxide Anion Gap BUN Creatinine Estim Creat Clear Calc Est GFR (MDRD) Af Amer Est GFR (MDRD) Non-Af BUN/Creatinine Ratio Glucose Lactic Acid Calcium MRSA (PCR) Blood Type O NEGATIVE POC Glucose 10/26/17 10/26/17 10/25/17 13:51 08:51 21:19 POC Glucose 216 H 237 H 249 H Medical Necessity - Tobacco Use Smoking Status: Former smoker Assessment/Plan All Active Problems Severe sepsis (Acute) Supratherapeutic INR (Acute) Acute respiratory failure with hypoxia (Acute) Pneumonia (Acute) Coronary artery disease (Acute) 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 fib #4 supratherapeutic INR-pulmonary medicine gave the patient fresh frozen plasma today #5 coronary artery disease #6 type 2 diabetes Code Visit Inpatient E&M: 52899 Subs Hosp L2
[2017-10-26] MEDS: fentaNYL 100 MCG/2 ML Ampul 25 MCG IV ×2 (15:01→17:15)
--- NOTE | 2017-10-26 15:52 | EKG12_ITS ---
Test Reason : CP Blood Pressure : / mmHG Vent. Rate : 088 BPM Atrial Rate : 192 BPM P-R Int : 000 ms QRS Dur : 118 ms QT Int : 422 ms P-R-T Axes : 000 -21 081 degrees QTc Int : 510 ms Atrial fibrillation with premature ventricular or aberrantly conducted complexes Anterior infarct , age undetermined Prolonged QT Abnormal ECG Confirmed by CLIFF LUNA, DARCIE ([id number]), subeditor SUNIL MCCARTHY ([id number]) on 10/31/2017 2:44:08 PM Referred By: RAFI Confirmed By:DARCIE CORONADO MD
[2017-10-26] MEDS: Haloperidol Lactate 5 MG/ML Vial 3 MG IV (16:11)
--- NOTE | 2017-10-26 17:34 | CHAPLAIN ---
Type of Pastoral Visit _x__ Initial Visit ___ Follow-up Visit ___ On-call Visit ___ General Patient Visit ___ Spiritual Assessment ___ Family Conference ___ Bereavement ___ Rapid Response ___ Code Blue ___ Other (describe below) Pastoral Care Referral From _x__ Patient ___ Family ___ Nurse ___ Physician ___ Card Tape Converter Operator ___ Doweling Machine Operator ___ Other (describe below) Sacrament/Intervention ___ Active listening ___ Anointing ___ Evangelical ___ Bereavement ___ Communion ___ Philomena exploration ___ ___ Life review _x__ Prayer ___ Reconciliation ___ Sacrament of Sick _x__ Supportive presence ___ Wedding _x__ Other (describe below) Pastoral Comments patient asked for scripture passages to be read; pt received prayer
[2017-10-26] MEDS: Haloperidol Lactate 5 MG/ML Vial 2 MG IV (18:01)
[2017-10-26 18:15] LABS: Bedside Glucose 174 mg/dL (70-110)
[2017-10-26] MEDS: fentaNYL 100 MCG/2 ML Ampul 50 MCG IV (20:43)
[2017-10-26] MEDS: Atorvastatin Calcium 80 MG Tablet PO (21:24)
[2017-10-26] MEDS: Furosemide 40 MG Tablet PO (21:24)
[2017-10-26] MEDS: Polyethylene Glycol 3350 17 GM PACKET PO (21:25)
[2017-10-26] MEDS: Haloperidol Lactate 5 MG/ML Vial IV (21:27)
[2017-10-26 21:41] LABS: Bedside Glucose 183 mg/dL (70-110)
[2017-10-27] VITALS (23 sets, daily range): BP systolic 120–164; BP diastolic 41–85; PULSE 70–93; RESP 16–27; TEMP 36.4–36.8; O2SAT 72–98
[2017-10-27] MEDS: 0.9% NaCl Peripheral Flush Adult/Peds IV (00:34)
--- NOTE | 2017-10-27 01:05 | NURSING ---
Pt has broken BiPAP mask and begins pulling on NRB mask when this RN attempting to place on pt's face. Pt stating multiple times I've made my piece with God I want to . Pt also refusing nasal cannula. Pt appropriately answering orientation questions and verbalizing to this RN and Kaiser Rivera RN he wishes to and does not want any medical treatment. Pt's is called and states she will come to hospital. Dr. Nava is paged via getter operator.
--- NOTE | 2017-10-27 01:42 | NURSING ---
UPDATED DR. OH OF PT'S REFUSAL TO WEAR HIS OXYGEN AND CARDIAC MONITERING. DR OH AWARE OF PT'S CODE STATUS.
--- NOTE | 2017-10-27 01:58 | NURSING ---
Two intact 20g IV catheters and extension tubing noted to be laying on bedside table upon this RN entering room. Blood is dripping from right hand onto gown. New gown provided and warm wash cloth given to pt to clean hand. Pt continues to decline wanting any medical treatment stating again I am ready to go to [facility].
--- NOTE | 2017-10-27 02:33 | CPS ---
Pt refusing all treatments and therapies at this time. RN and RT explained danger of refusing bipap and oxygen therapy. Pt continues to refuse.
[2017-10-27] MEDS: LORazepam 1 MG Tablet PO (03:15)
[2017-10-27] MEDS: Haloperidol 5 MG Tablet PO ×2 (03:16→19:59)
--- NOTE | 2017-10-27 03:30 | NURSING ---
Pt stating I'm really short of breath and I just want to be comfortable. Pt provided education that oxygen through nasal cannula may help his shortness of breath. Pt agrees to wear 4L NC stating he does not want the oxygen to keep him alive.
--- NOTE | 2017-10-27 07:09 | PN_ITS ---
Subjective: Patient reportedly extremely agitated overnight, but is currently sleeping. Per and nursing report, patient was unable to tolerate BiPAP, nonrebreather or high flow nasal cannula oxygen. Patient also pulled out all of his IVs and was requesting comfort measures only. Patient was noted to be saturating into the 70s during various events overnight, but blood pressures remained stable. Patient's asked that I allow him to rest prior to addressing CODE STATUS. General: - - Resting comfortably. Saturating 84% on 4 L, increased to 6 L HEENT: Atraumatic, PERRLA, EOMI, Normocephalic, - - No scleral icterus or injection noted. Oral: No Gingival or Mucosal Lesions/ Ulcerations, Dry Mucosa Neck: Supple, No JVD, No Nodes, Trachea Midline Lungs: No rales, Diminished, Rhonchi - Right greater than left, Wheezes, - - Symmetric expansion. Cardiovascular: Regular rate, Regular Rhythm, Normal S1, Normal S2, No murmurs, No rub noted, No Gallop Abdomen: Bowel Sounds Present, Soft, Non Tender, Non-Distended, Obese Extremities: No clubbing, No cyanosis, No edema, Capillary Refill Less than 3 Seconds Skin: - - No significant change compared to previous Musculoskeletal: No Tenderness to Palpation of Joints or Extremities Lymphatic: No Cervical, Supraclavicular, or Inguinal Adenopathy Neurological: Cranial nerves II-XII grossly intact, Neuro grossly intact Psych/Mental Status: Flat Affect, - - Resting comfortably Vital Signs Temp Pulse Resp BP Pulse Ox 36.4 C L 79 26 H 147/63 H 74 10/27/17 00:00 10/27/17 01:00 10/27/17 01:00 10/27/17 03:40 10/27/17 05:53 Oxygen Flow Rate (L/min) 4 Oxygen Delivery Method Nasal Cannula Weight: 116.2 kg Body Mass Index (BMI) 33.0 Intake and Output for Last 24 Hours 10/25/17 10/26/17 10/27/17 23:59 23:59 23:59 Intake Total 3371.6 / 3371.6 120 / 120 Output Total 1250 / 1250 300 / 300 Balance 2121.6 / 2121.6 -180 / -180 Labs (Last 48 Hours) 10/25/17 10/25/17 10/25/17 18:00 18:53 21:19 WBC RBC Hgb Hct MCV MCH MCHC RDW RDW Differential Plt Count MPV PT INR Sodium Potassium Chloride Carbon Dioxide Anion Gap BUN Creatinine Estim Creat Clear Calc Est GFR (MDRD) Af Amer Est GFR (MDRD) Non-Af BUN/Creatinine Ratio Glucose Lactic Acid 2.8 H Calcium MRSA (PCR) Negative POC Glucose 249 H Blood Type 10/25/17 10/26/17 10/26/17 21:40 04:45 04:45 WBC 7.1 RBC 3.45 L Hgb 10.2 L Hct 31.4 L MCV 91.0 MCH 29.6 MCHC 32.5 RDW 14.1 RDW Differential 46.2 H Plt Count 164 MPV 9.2 PT INR Sodium 139 Potassium 4.1 Chloride 98 Carbon Dioxide 33.0 H Anion Gap 8 BUN 37 H Creatinine 1.29 Estim Creat Clear Calc 51.61 Est GFR (MDRD) Af Amer 69 Est GFR (MDRD) Non-Af 57 L BUN/Creatinine Ratio 28.7 H Glucose 226 H Lactic Acid 2.1 H Calcium 7.6 L MRSA (PCR) POC Glucose Blood Type 10/26/17 10/26/17 10/26/17 04:45 06:15 07:30 WBC RBC Hgb Hct MCV MCH MCHC RDW RDW Differential Plt Count MPV PT 79.7 H INR 9.8 H* Sodium Potassium Chloride Carbon Dioxide Anion Gap BUN Creatinine Estim Creat Clear Calc Est GFR (MDRD) Af Amer Est GFR (MDRD) Non-Af BUN/Creatinine Ratio Glucose Lactic Acid 1.8 Calcium MRSA (PCR) POC Glucose Blood Type O NEGATIVE 10/26/17 10/26/17 10/26/17 08:51 13:51 17:55 WBC RBC Hgb Hct MCV MCH MCHC RDW RDW Differential Plt Count MPV PT INR Sodium Potassium Chloride Carbon Dioxide Anion Gap BUN Creatinine Estim Creat Clear Calc Est GFR (MDRD) Af Amer Est GFR (MDRD) Non-Af BUN/Creatinine Ratio Glucose Lactic Acid Calcium MRSA (PCR) POC Glucose 237 H 216 H 174 H Blood Type 10/26/17 21:21 WBC RBC Hgb Hct MCV MCH MCHC RDW RDW Differential Plt Count MPV PT INR Sodium Potassium Chloride Carbon Dioxide Anion Gap BUN Creatinine Estim Creat Clear Calc Est GFR (MDRD) Af Amer Est GFR (MDRD) Non-Af BUN/Creatinine Ratio Glucose Lactic Acid Calcium MRSA (PCR) POC Glucose 183 H Blood Type Microbiology 10/26/17 10:15 Urine, Clean Catch Legionella Antigen - Final 10/26/17 10:15 Urine, Clean Catch Streptococcus pneumoniae Antigen (M - Final 10/25/17 18:49 Sputum, Expectorated/Coughed Gram Stain - Final Medical Necessity - Tobacco Use Smoking Status: Former smoker Assessment/Plan All Active Problems Severe sepsis (Acute) Supratherapeutic INR (Acute) Acute respiratory failure with hypoxia (Acute) Pneumonia (Acute) Coronary artery disease (Acute) 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) Venous ulcer of right leg (Resolved) RECOMMENDATIONS: 1. Supplemental oxygen as tolerated to keep saturations greater than 88% 2. Transition to Levaquin and prednisone given lack of IV access 3. Wean oxygen as tolerated 4. Possible hospice consultation 5. Monitor sliding scale insulin IMPRESSSIONS: 1. Acute hypoxic respiratory failure secondary to probable community- acquired pneumonia Patient with a patchy dense infiltrate noted on the right-hand side. Cannot exclude underlying metastasis, but patient is reporting purulent sputum. Patient is now refusing any supplemental supportive devices. No telemetry is in place. is asked to allow patient to sleep for now. However, given patient's reported wishes overnight, hospice evaluation may be necessary. Will transition to prednisone and Levaquin therapy as these will not require IV access. 2. Acute kidney injury Patient previously with normal renal function in May. Presentation creatinine of 1.44, likely secondary to prerenal etiology. Patient was receiving IV hydration. Will need to be closely monitored given patient's history of coronary artery disease and atrial fibrillation. No indication for renal replacement therapy at this time. Will need to check labs if patient wishes aggressive therapy 3. Persistent A. fib/coronary artery disease status post CABG/ supratherapeutic INR Patient with supratherapeutic INR at this time. Unclear if this is related to the acute illness versus Coumadin dosing. Patient does state that he tends to run high. Patient not allowing for repeat INR check. If patient able to take p.o., vitamin K may be appropriate for reversal. 4. Diabetes mellitus type 2 Patient will likely not be able to tolerate much p.o. intake given respiratory rate. Patient is currently on Lantus, Amaryl and lispro. Amaryl was discontinued given renal function. Sliding scale insulin if patient is agreeable. 5. Agitation/advanced age/hypertension/hypercholesterolemia/BPH Complicates care, management, recovery and prognosis. Patient is very clear that he is a DNR Comfort Care arrest without intubation. Antihypertensive medications can be continued. Will readdress patient's CODE STATUS later this morning Code Visit Inpatient E&M: 57654 Subs Hosp L3
--- NOTE | 2017-10-27 08:30 | NURSING ---
Pt found out of bed sitting on nurse's rolling chair with no clothes on and oxygen off. Abreu in color, lips purple. Did not know where he was or what was going on. Pt agreeable to sit in recliner chair. Oxygen re-applied. Pt re-oriented multiple times. Remembers this RN from yesterday but forgetful of where he is. Gown placed back on pt as well as telemetry & pulse ox & blood pressure cuff. Pt agreeable to have AM labs drawn & take AM meds. States he just does not want that mask on that blows air in and out. Chair alarm placed on pt and able to visualize pt on camera.
[2017-10-27 08:51] LABS: Bedside Glucose 299 mg/dL (70-110)
[2017-10-27] MEDS: Insulin Lispro 100 UNIT/ML INSULN.PEN 16 UNIT SQ (09:01)
[2017-10-27] MEDS: Insulin Lispro 100 UNIT/ML INSULN.PEN SQ ×4 (09:01→23:21)
[2017-10-27] MEDS: levoFLOXacin 750 MG Tablet PO (09:02)
[2017-10-27] MEDS: predniSONE 20 MG Tablet 40 MG PO (09:02)
[2017-10-27] MEDS: Aspirin E.C. 81 MG Tablet PO (09:02)
[2017-10-27] MEDS: amLODIPine 5 MG Tablet PO (09:03)
[2017-10-27] MEDS: Labetalol 100 MG Tablet PO ×2 (09:03→21:10)
[2017-10-27] MEDS: Furosemide 40 MG Tablet PO ×2 (09:03→21:10)
[2017-10-27] MEDS: guaiFENesin 1,200 MG Tablet 1200 MG PO ×2 (09:03→21:10)
[2017-10-27] MEDS: Tamsulosin HCl 0.4 MG Capsule PO (09:03)
[2017-10-27] MEDS: Sertraline 50 MG Tablet PO (09:04)
[2017-10-27] MEDS: Cyanocobalamin 500 MCG Tablet 1000 MCG PO (09:04)
[2017-10-27 09:06] LABS: Hematocrit 32.7 % (40-54); Hemoglobin 10.5 g/dl (13.0-16.5); Mean Corp Hgb Conc 32.1 g/gl (32-36); Mean Corpuscular Hgb 28.7 pg (27.0-32.0); Mean Corpuscular Volume 89.3 fL (80-94); Mean Platelet Vol. 8.8 fl (6.2-12.0); Platelet Count 167 K/mm3 (150-450); RBC Distribution Width CV 14.6 % (11.6-14.6); RBC Distribution Width SD 47.7 fl (35.1-43.9); Red Blood Count 3.66 M/mm3 (4.6-6.2); Scan Indicated on CBC? Y/N NO; White Blood Count 9.3 K/mm3 (4.4-11.0)
[2017-10-27 09:19] LABS: Anion Gap 12 (5-15); BUN 50 mg/dL (7-18); BUN/Creat Ratio 36.2 RATIO (10-20); Chloride 93 mmol/L (98-107); Creatinine, Serum 1.38 mg/dL (0.70-1.30); EST Glomerular Filtration Rate 53 mL/min (>60); Est Glom Filt Rate - Afr Amer 64 mL/min (>60); Estimated Creatinine Clearance 48.25 ml/min; Glucose 293 mg/dL (74-106); Magnesium 2.4 mg/dL (1.6-2.6); Potassium 3.5 mmol/L (3.5-5.1); Sodium Level 132 mmol/L (136-145)
[2017-10-27] MEDS: Sodium Chloride 0.65% 1 SPRAY SPRAY.BTL 2 SPRAY NASAL (09:21)
[2017-10-27 09:22] LABS: Phosphorus 4.1 mg/dL (2.5-4.9)
[2017-10-27 09:29] LABS: Prothrombin Time (Protime)PT. 71.2 SECONDS (11.7-14.9)
[2017-10-27 09:30] LABS: International Normalized Ratio 8.5
--- NOTE | 2017-10-27 09:55 | PCM.PROGNOTE ---
Patient Problems: Active and Suspected Problems Severe sepsis (Acute) Supratherapeutic INR (Acute) Acute respiratory failure with hypoxia (Acute) Pneumonia (Acute) Coronary artery disease (Acute) Subjective: Patient seen and examined today, during the night he became agitated and pull IVs out, he was not able to tolerate BiPAP. Patient is currently on high flow nasal cannula oxygen. Patient's INR is still elevated today - Physical Exam General: Alert, Oriented x3, Cooperative, No apparent distress, Well developed HEENT: Atraumatic, PERRLA, EOMI, Normocephalic Oral: Moist Mucosa Neck: Supple, No JVD, No Nuchal Rigidity, Trachea Midline, Thyroid Normal Size and Texture Lungs: No rhonchi, No rales, Diminished, Wheezes - Diffuse expiratory wheezes bilaterally Cardiovascular: PMI Normal, Irregular Rate, No rub noted, No Gallop Abdomen: Bowel Sounds Present, Soft, Non Tender, Non-Distended, No hernias noted Extremities: No clubbing, No cyanosis, No edema, Capillary Refill Less than 3 Seconds Neurological: Cranial nerves II-XII grossly intact, Neuro grossly intact, Sensory exam intact to light touch and pain Psych/Mental Status: Normal Affect, Appropriate Vital Signs Temp Pulse Resp BP Pulse Ox 97.6 F L 79 16 147/63 H 90 10/27/17 00:00 10/27/17 01:00 10/27/17 07:00 10/27/17 03:40 10/27/17 07:00 Oxygen Flow Rate (L/min) 6 Oxygen Delivery Method Nasal Cannula Weight: 116.2 kg Body Mass Index (BMI) 33.0 Intake and Output for Last 24 Hours 10/25/17 10/26/17 10/27/17 23:59 23:59 23:59 Intake Total 3371.6 / 3371.6 240 / 240 Output Total 1250 / 1250 725 / 725 Balance 2121.6 / 2121.6 -485 / -485 Microbiology Past 72 Hours 10/26/17 10:15 Legionella Antigen - Final Urine, Clean Catch 10/26/17 10:15 Streptococcus pneumoniae Antigen (M - Final Urine, Clean Catch 10/25/17 18:49 Gram Stain - Final Sputum, Expectorated/Coughed Laboratory Tests Past 24 Hrs 10/26/17 10/27/17 10/27/17 07:30 08:50 08:50 WBC 9.3 RBC 3.66 L Hgb 10.5 L Hct 32.7 L MCV 89.3 MCH 28.7 MCHC 32.1 RDW 14.6 RDW Differential 47.7 H Plt Count 167 MPV 8.8 PT INR Sodium 132 L Potassium 3.5 Chloride 93 L Carbon Dioxide 27.0 Anion Gap 12 BUN 50 H Creatinine 1.38 H Estim Creat Clear Calc 48.25 Est GFR (MDRD) Af Amer 64 Est GFR (MDRD) Non-Af 53 L BUN/Creatinine Ratio 36.2 H Glucose 293 H Calcium 8.0 L Phosphorus Magnesium 2.4 Blood Type O NEGATIVE 10/27/17 10/27/17 08:50 08:50 WBC RBC Hgb Hct MCV MCH MCHC RDW RDW Differential Plt Count MPV PT 71.2 H INR 8.5 H* Sodium Potassium Chloride Carbon Dioxide Anion Gap BUN Creatinine Estim Creat Clear Calc Est GFR (MDRD) Af Amer Est GFR (MDRD) Non-Af BUN/Creatinine Ratio Glucose Calcium Phosphorus 4.1 Magnesium Blood Type POC Glucose 10/27/17 10/26/17 10/26/17 08:44 21:21 17:55 POC Glucose 299 H 183 H 174 H 10/26/17 13:51 POC Glucose 216 H Medical Necessity - Tobacco Use Smoking Status: Former smoker Assessment/Plan All Active Problems Severe sepsis (Acute) Supratherapeutic INR (Acute) Acute respiratory failure with hypoxia (Acute) Pneumonia (Acute) Coronary artery disease (Acute) 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) Venous ulcer of right leg (Resolved) #1 severe sepsis secondary to community-acquired pneumonia-patient will remain on his current antibiotic coverage which is now oral because patient refused IV access, critical care is participating in his care, white blood cell count remains normal at this time #2 acute hypoxic respiratory failure secondary to #1-continue to monitor O2, patient is a DNR CC arrest #3 chronic A. fib #4 supratherapeutic INR-oral vitamin K given to the patient today, he has no evidence of any bleeding at this time #5 coronary artery disease #6 type 2 diabetes Code Visit Inpatient E&M: 89288 Subs Hosp L2
[2017-10-27] MEDS: Phytonadione (Vit K) 10 MG/ML Ampul 5 MG PO (10:45)
[2017-10-27] MEDS: Senna/Docusate Sodium 1 Tablet PO (10:45)
--- NOTE | 2017-10-27 10:58 | CASEMGMT ---
SW participated in ICU rounds. SW spoke w/RN, as this SW plans to speak w/pt's at some point regarding discharge plan, to see if she has been in yet today. As per RN, she came in at 2:30am and left before 9am to go to an appointment. RN will let SW know if comes back in today, though she may go home to rest. SW will speak w/ should she come back in today, otherwise SW will call tomorrow regarding discharge plan. ALPHONSO Ackerman, CIRCUIT JUDGE
[2017-10-27] MEDS: oxyCODONE 5 MG Tablet PO ×2 (11:50→19:57)
[2017-10-27 12:21] LABS: Bedside Glucose 287 mg/dL (70-110)
[2017-10-27] MEDS: Insulin Lispro 100 UNIT/ML INSULN.PEN 10 UNIT SQ ×3 (13:12→23:21)
[2017-10-27] MEDS: Ipratropium/Albuterol Sulfate 3 ML AMPUL.NEB INHALATION ×2 (14:18→19:45)
[2017-10-27 18:46] LABS: Bedside Glucose 319 mg/dL (70-110)
[2017-10-27] MEDS: Polyethylene Glycol 3350 17 GM PACKET PO (21:10)
[2017-10-27] MEDS: Atorvastatin Calcium 80 MG Tablet PO (21:10)
[2017-10-27 21:15] LABS: Bedside Glucose 258 mg/dL (70-110)
[2017-10-27] MEDS: Zolpidem Tartrate 5 MG Tablet PO (23:16)
[2017-10-27 23:25] LABS: Bedside Glucose 274 mg/dL (70-110)
[2017-10-28] VITALS (23 sets, daily range): BP systolic 127–160; BP diastolic 51–93; PULSE 64–110; RESP 12–22; TEMP 36.3–37.1; O2SAT 88–100
[2017-10-28] MEDS: 0.9% NaCl Peripheral Flush Adult/Peds IV (03:49)
[2017-10-28 04:04] LABS: Absolute Lymphocyte Count 1.01 X10^3/ul (0.83-4.51); Absolute Neutrophil Count 14.1 X10^3/uL (2.0-7.7); Basophil# 0.02 X10^3/uL; Basophil% 0.1 % (0-1); Eosinophil# 0.03 X10^3/uL; Eosinophils% 0.2 % (0-5); Hematocrit 29.7 % (40-54); Hemoglobin 9.7 g/dl (13.0-16.5); Lymphocyte # 1.01 X10^3/ul (4.0); Lymphocyte % 6.3 % (19-41); Mean Corp Hgb Conc 32.7 g/gl (32-36); Mean Corpuscular Hgb 28.6 pg (27.0-32.0); Mean Corpuscular Volume 87.6 fL (80-94); Mean Platelet Vol. 9.1 fl (6.2-12.0); Monocyte% 4.4 % (0-10); Neutrophil # 14.11 X10^3/uL (2.7-7.7); Neutrophil % 88.3 % (47-70); Platelet Count 182 K/mm3 (150-450); RBC Distribution Width CV 14.4 % (11.6-14.6); Red Blood Count 3.39 M/mm3 (4.6-6.2)
[2017-10-28 04:07] LABS: POSITIVE COUNT NO; POSITIVE DIFFERENTIAL NO; POSITIVE MORPHOLOGY NO
[2017-10-28] MEDS: CHLORHEXIDINE GLUC 2% CLOTH 1 EACH TOWELETTE TOPICAL (04:08)
[2017-10-28 04:17] LABS: Prothrombin Time (Protime)PT. 42.2 SECONDS (11.7-14.9)
[2017-10-28 04:18] LABS: Anion Gap 10 (5-15); BUN 57 mg/dL (7-18); BUN/Creat Ratio 46.3 RATIO (10-20); Calcium,Total 8.2 mg/dL (8.5-10.1); Chloride 95 mmol/L (98-107); Creatinine, Serum 1.23 mg/dL (0.70-1.30); EST Glomerular Filtration Rate 60 mL/min (>60); Est Glom Filt Rate - Afr Amer 73 mL/min (>60); Estimated Creatinine Clearance 54.13 ml/min; Glucose 221 mg/dL (74-106); Potassium 3.5 mmol/L (3.5-5.1); Sodium Level 136 mmol/L (136-145)
[2017-10-28 04:22] LABS: International Normalized Ratio 4.4
[2017-10-28] MEDS: levoFLOXacin 750 MG Tablet PO (05:36)
[2017-10-28] MEDS: Insulin Lispro 100 UNIT/ML INSULN.PEN 10 UNIT SQ ×4 (05:36→21:08)
[2017-10-28] MEDS: Insulin Lispro 100 UNIT/ML INSULN.PEN SQ ×4 (05:37→21:08)
[2017-10-28 05:46] LABS: Bedside Glucose 212 mg/dL (70-110)
--- NOTE | 2017-10-28 06:25 | PCM.PN.INT ---
Subjective: Patient did well overnight. Patient did have one episode of confusion, but nursing reports significantly improved compared to previous. Patient continues to refuse any mask including nonrebreather. Patient is on 8 L high flow nasal cannula. Patient has had some issues with sinus congestion and epistaxis, but does report some response to nasal saline. Patient denies any pain at this time. General: Alert, Oriented x3, Cooperative, No apparent distress, - - Obese. Speaking in full sentences. HEENT: Atraumatic, PERRLA, EOMI, Normocephalic, - - No scleral icterus or injection noted. Oral: Moist Mucosa, No Gingival or Mucosal Lesions/ Ulcerations Neck: Supple, No JVD, No Nodes, Trachea Midline Lungs: No rales, Diminished, Rhonchi - Right, Wheezes - At end exhalation, - - Symmetric expansion. No dullness to percussion. Cardiovascular: Normal S1, Normal S2, No murmurs, Irregular Rate, No rub noted, No Gallop Abdomen: Bowel Sounds Present, Soft, Non Tender, Non-Distended, Obese Extremities: No clubbing, No cyanosis, Edema - Trace lower extremity Skin: - - No significant change compared to previous Musculoskeletal: No Tenderness to Palpation of Joints or Extremities, No Muscle Wasting Lymphatic: No Cervical, Supraclavicular, or Inguinal Adenopathy Neurological: Cranial nerves II-XII grossly intact, Neuro grossly intact, Motor Exam 5/5 strength throughout Psych/Mental Status: Normal Affect, Appropriate Vital Signs Temp Pulse Resp BP Pulse Ox 36.3 C L 67 19 H 147/52 H 91 10/28/17 04:00 10/28/17 06:00 10/28/17 06:00 10/28/17 06:00 10/28/17 06:00 Oxygen Flow Rate (L/min) 8 Oxygen Delivery Method Nasal Cannula Weight: 116.2 kg Body Mass Index (BMI) 33.0 Intake and Output for Last 24 Hours 10/26/17 10/27/17 10/28/17 23:59 23:59 23:59 Intake Total 3371.6 / 3371.6 1815 / 1815 850 / 850 Output Total 1250 / 1250 2850 / 2850 875 / 875 Balance 2121.6 / 2121.6 -1035 / -1035 -25 / -25 Labs (Last 48 Hours) 10/26/17 10/26/17 10/26/17 06:15 07:30 08:51 WBC RBC Hgb Hct MCV MCH MCHC RDW RDW Differential Plt Count MPV Immature Gran % (Auto) Neut % (Auto) Lymph % (Auto) [place] % (Auto) Eos % (Auto) Baso % (Auto) Absolute Neuts (auto) Absolute Lymphs (auto) Total Counted PT 79.7 H INR 9.8 H* Sodium Potassium Chloride Carbon Dioxide Anion Gap BUN Creatinine Estim Creat Clear Calc Est GFR (MDRD) Af Amer Est GFR (MDRD) Non-Af BUN/Creatinine Ratio Glucose Calcium Phosphorus Magnesium POC Glucose 237 H Blood Type O NEGATIVE 10/26/17 10/26/17 10/26/17 13:51 17:55 21:21 WBC RBC Hgb Hct MCV MCH MCHC RDW RDW Differential Plt Count MPV Immature Gran % (Auto) Neut % (Auto) Lymph % (Auto) [place] % (Auto) Eos % (Auto) Baso % (Auto) Absolute Neuts (auto) Absolute Lymphs (auto) Total Counted PT INR Sodium Potassium Chloride Carbon Dioxide Anion Gap BUN Creatinine Estim Creat Clear Calc Est GFR (MDRD) Af Amer Est GFR (MDRD) Non-Af BUN/Creatinine Ratio Glucose Calcium Phosphorus Magnesium POC Glucose 216 H 174 H 183 H Blood Type 10/27/17 10/27/17 10/27/17 08:44 08:50 08:50 WBC 9.3 RBC 3.66 L Hgb 10.5 L Hct 32.7 L MCV 89.3 MCH 28.7 MCHC 32.1 RDW 14.6 RDW Differential 47.7 H Plt Count 167 MPV 8.8 Immature Gran % (Auto) Neut % (Auto) Lymph % (Auto) [place] % (Auto) Eos % (Auto) Baso % (Auto) Absolute Neuts (auto) Absolute Lymphs (auto) Total Counted PT INR Sodium 132 L Potassium 3.5 Chloride 93 L Carbon Dioxide 27.0 Anion Gap 12 BUN 50 H Creatinine 1.38 H Estim Creat Clear Calc 48.25 Est GFR (MDRD) Af Amer 64 Est GFR (MDRD) Non-Af 53 L BUN/Creatinine Ratio 36.2 H Glucose 293 H Calcium 8.0 L Phosphorus Magnesium 2.4 POC Glucose 299 H Blood Type 07/10/27/17 10/27/17 08:50 08:50 12:14 WBC RBC Hgb Hct MCV MCH MCHC RDW RDW Differential Plt Count MPV Immature Gran % (Auto) Neut % (Auto) Lymph % (Auto) [place] % (Auto) Eos % (Auto) Baso % (Auto) Absolute Neuts (auto) Absolute Lymphs (auto) Total Counted PT 71.2 H INR 8.5 H* Sodium Potassium Chloride Carbon Dioxide Anion Gap BUN Creatinine Estim Creat Clear Calc Est GFR (MDRD) Af Amer Est GFR (MDRD) Non-Af BUN/Creatinine Ratio Glucose Calcium Phosphorus 4.1 Magnesium POC Glucose 287 H Blood Type 10/27/17 10/27/17 10/27/17 18:31 21:05 23:20 WBC RBC Hgb Hct MCV MCH MCHC RDW RDW Differential Plt Count MPV Immature Gran % (Auto) Neut % (Auto) Lymph % (Auto) [place] % (Auto) Eos % (Auto) Baso % (Auto) Absolute Neuts (auto) Absolute Lymphs (auto) Total Counted PT INR Sodium Potassium Chloride Carbon Dioxide Anion Gap BUN Creatinine Estim Creat Clear Calc Est GFR (MDRD) Af Amer Est GFR (MDRD) Non-Af BUN/Creatinine Ratio Glucose Calcium Phosphorus Magnesium POC Glucose 319 H 258 H 274 H Blood Type 10/28/17 10/28/17 10/28/17 03:50 03:50 03:50 WBC 16.0 H RBC 3.39 L Hgb 9.7 L Hct 29.7 L MCV 87.6 MCH 28.6 MCHC 32.7 RDW 14.4 RDW Differential 46.0 H Plt Count 182 MPV 9.1 Immature Gran % (Auto) 0.700 Neut % (Auto) 88.3 H Lymph % (Auto) 6.3 L [place] % (Auto) 4.4 Eos % (Auto) 0.2 Baso % (Auto) 0.1 Absolute Neuts (auto) 14.1 H Absolute Lymphs (auto) 1.01 Total Counted Not Reportable PT 42.2 H INR 4.4 H* Sodium 136 Potassium 3.5 Chloride 95 L Carbon Dioxide 31.0 Anion Gap 10 BUN 57 H Creatinine 1.23 Estim Creat Clear Calc 54.13 Est GFR (MDRD) Af Amer 73 Est GFR (MDRD) Non-Af 60 BUN/Creatinine Ratio 46.3 H Glucose 221 H Calcium 8.2 L Phosphorus Magnesium POC Glucose Blood Type 10/28/17 05:35 WBC RBC Hgb Hct MCV MCH MCHC RDW RDW Differential Plt Count MPV Immature Gran % (Auto) Neut % (Auto) Lymph % (Auto) [place] % (Auto) Eos % (Auto) Baso % (Auto) Absolute Neuts (auto) Absolute Lymphs (auto) Total Counted PT INR Sodium Potassium Chloride Carbon Dioxide Anion Gap BUN Creatinine Estim Creat Clear Calc Est GFR (MDRD) Af Amer Est GFR (MDRD) Non-Af BUN/Creatinine Ratio Glucose Calcium Phosphorus Magnesium POC Glucose 212 H Blood Type Microbiology 10/25/17 18:49 Sputum, Expectorated/Coughed Gram Stain - Final 10/25/17 18:49 Sputum, Expectorated/Coughed Respiratory Culture - Preliminary 10/26/17 10:15 Urine, Clean Catch Legionella Antigen - Final 10/26/17 10:15 Urine, Clean Catch Streptococcus pneumoniae Antigen (M - Final Medical Necessity - Tobacco Use Smoking Status: Former smoker Assessment/Plan All Active Problems Severe sepsis (Acute) Supratherapeutic INR (Acute) Acute respiratory failure with hypoxia (Acute) Pneumonia (Acute) Coronary artery disease (Acute) 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) Venous ulcer of right leg (Resolved) RECOMMENDATIONS: 1. Supplemental oxygen as tolerated to keep saturations greater than 88% 2. Continue Levaquin and prednisone 3. Wean oxygen as tolerated 4. Aggressive pulmonary toileting and nasal saline washes 5. Monitor in the intensive care unit for behavior and high flow nasal cannula requirements IMPRESSSIONS: 1. Acute hypoxic respiratory failure secondary to probable community-acquired pneumonia Patient with a patchy dense infiltrate noted on the right-hand side. Cannot exclude underlying metastasis, but patient is reporting purulent sputum. Patient is more cooperative today compared to previous. Patient is tolerating high flow nasal cannula with acceptable saturations. We will continue with prednisone and Levaquin therapy. Patient may require saline rinses. Attempted to discuss with the patient about use of mask to avoid nasal congestion, but patient is not interested. 2. Acute kidney injury Patient previously with normal renal function in May. Presentation creatinine of 1.44, likely secondary to prerenal etiology. Renal function has still not completely improved. Patient with poor intake at this time. We will continue to encourage p.o. intake. Patient's blood sugars have been running high, so no IV dextrose. 3. Persistent A. fib/coronary artery disease status post CABG/supratherapeutic INR Patient with supratherapeutic INR at this time. Unclear if this is related to the acute illness versus Coumadin dosing. Patient does state that he tends to run high. Patient was given vitamin K yesterday. INR of 4.4 is still elevated, but acceptable given level of bleeding at this time. Cannot exclude the need for FFP in the future. 4. Diabetes mellitus type 2 Patient will likely not be able to tolerate much p.o. intake given respiratory rate. Patient is currently on Lantus, Amaryl and lispro. Amaryl was discontinued given renal function. Sliding scale insulin if patient is agreeable. 5. Agitation/advanced age/hypertension/hypercholesterolemia/BPH Complicates care, management, recovery and prognosis. Patient is very clear that he is a DNR Comfort Care arrest without intubation. Antihypertensive medications can be continued. Highly variable goals of care at this time. We will continue to treat the patient as he allows. Patient understands that placing limits does increased risk of complications. Code Visit Inpatient E&M: 83091 Subs Hosp L3
[2017-10-28] MEDS: Ipratropium/Albuterol Sulfate 3 ML AMPUL.NEB INHALATION ×4 (07:06→20:08)
[2017-10-28] MEDS: oxyCODONE 5 MG Tablet PO ×3 (07:18→21:00)
[2017-10-28] MEDS: predniSONE 20 MG Tablet 40 MG PO (07:19)
[2017-10-28] MEDS: Senna/Docusate Sodium 1 Tablet PO (07:24)
[2017-10-28] MEDS: Haloperidol 5 MG Tablet PO ×2 (07:25→14:15)
[2017-10-28] MEDS: Sodium Chloride 0.65% 1 SPRAY SPRAY.BTL 2 SPRAY NASAL ×2 (07:25→21:11)
[2017-10-28] MEDS: Furosemide 40 MG Tablet PO ×2 (10:08→20:59)
[2017-10-28] MEDS: guaiFENesin 1,200 MG Tablet 1200 MG PO ×2 (10:08→20:59)
[2017-10-28] MEDS: Tamsulosin HCl 0.4 MG Capsule PO (10:08)
[2017-10-28] MEDS: Aspirin E.C. 81 MG Tablet PO (10:08)
[2017-10-28] MEDS: amLODIPine 5 MG Tablet PO (10:08)
[2017-10-28] MEDS: Sertraline 50 MG Tablet PO (10:09)
[2017-10-28] MEDS: Labetalol 100 MG Tablet PO ×2 (10:09→20:59)
[2017-10-28] MEDS: Cyanocobalamin 500 MCG Tablet 1000 MCG PO (10:09)
[2017-10-28] MEDS: Glucerna Shake 120 ML LIQUID PO ×3 (10:12→21:00)
--- NOTE | 2017-10-28 10:29 | CASEMGMT ---
Addendum entered by Marce Schneider 10/28/17 11:16: Pt's is here, SW spoke w/ in room in regard to discharge plan. As per , if possible, she would like pt to return home w/her. SW explained will need to see how pt progresses and how his breathing is. states pt has been to [facility] and loved it there, though hates the idea of having to go somewhere. SW explained will follow up on Monday w/pt and to see how pt is doing, at that time we may have a better idea if SNF for rehab will be needed. states understanding. SW will continue to follow. ALPHONSO Ackerman, [employer] Original Note: SW participated in ICU rounds this morning, pt will likely remain in ICU today. SW did call pt's , message left requesting she return this SW's call when able. SW will continue to follow. ALPHONSO Ackerman, [employer]
[2017-10-28] MEDS: Acetaminophen 325 MG Tablet 650 MG PO ×2 (11:04→20:59)
[2017-10-28 12:40] LABS: Bedside Glucose 273 mg/dL (70-110)
--- NOTE | 2017-10-28 13:46 | PCM.PROGNOTE ---
Patient Problems: Active and Suspected Problems Severe sepsis (Acute) Supratherapeutic INR (Acute) Acute respiratory failure with hypoxia (Acute) Pneumonia (Acute) Coronary artery disease (Acute) Subjective: Patient was seen and examined today in the ICU, sputum culture resulted and Haemophilus influenza, patient is currently on Levaquin. Patient remains on high flow oxygen at this time, he does not seem as agitated as yesterday and is cooperating with his care. - Physical Exam General: Alert, Oriented x3, Cooperative, No apparent distress, Well developed, Well nourished HEENT: Atraumatic, PERRLA, EOMI, Normocephalic Oral: Moist Mucosa Neck: Supple, No JVD, No Nuchal Rigidity, Trachea Midline, Thyroid Normal Size and Texture Lungs: No rhonchi, No rales, Wheezes - Marked expiratory wheezes are noted bilaterally Cardiovascular: Irregular Rate, Murmur - 2/6 systolic murmur is noted at the apex Abdomen: Bowel Sounds Present, Soft, Non Tender, Non-Distended, No hernias noted Extremities: No clubbing, No cyanosis, Capillary Refill Less than 3 Seconds Skin: No rashes, No breakdown Musculoskeletal: No Tenderness to Palpation of Joints or Extremities Neurological: Cranial nerves II-XII grossly intact, Neuro grossly intact, Sensory exam intact to light touch and pain, Coordination normal Psych/Mental Status: Normal Affect, Appropriate, Alert and oriented to time, place, person, mood and affect Vital Signs Temp Pulse Resp BP Pulse Ox 98 F 68 15 145/63 H 90 10/28/17 12:00 10/28/17 13:00 10/28/17 13:00 10/28/17 13:00 10/28/17 13:00 Oxygen Flow Rate (L/min) 8 Oxygen Delivery Method Nasal Cannula Weight: 117.7 kg Body Mass Index (BMI) 33.0 Intake and Output for Last 24 Hours 10/26/17 10/27/17 10/28/17 23:59 23:59 23:59 Intake Total 3371.6 / 3371.6 1815 / 1815 1670 / 1670 Output Total 1250 / 1250 2850 / 2850 1625 / 1625 Balance 2121.6 / 2121.6 -1035 / -1035 45 / 45 Microbiology Past 72 Hours 10/25/17 18:49 Gram Stain - Final Sputum, Expectorated/Coughed Respiratory Culture - Final Haemophilus influenzae Presumptive C albicans Mixed Ruth 10/26/17 10:15 Legionella Antigen - Final Urine, Clean Catch 10/26/17 10:15 Streptococcus pneumoniae Antigen (M - Final Urine, Clean Catch Laboratory Tests Past 24 Hrs 10/28/17 10/28/17 10/28/17 03:50 03:50 03:50 WBC 16.0 H RBC 3.39 L Hgb 9.7 L Hct 29.7 L MCV 87.6 MCH 28.6 MCHC 32.7 RDW 14.4 RDW Differential 46.0 H Plt Count 182 MPV 9.1 Immature Gran % (Auto) 0.700 Neut % (Auto) 88.3 H Lymph % (Auto) 6.3 L [place] % (Auto) 4.4 Eos % (Auto) 0.2 Baso % (Auto) 0.1 Absolute Neuts (auto) 14.1 H Absolute Lymphs (auto) 1.01 Total Counted Not Reportable PT 42.2 H INR 4.4 H* Sodium 136 Potassium 3.5 Chloride 95 L Carbon Dioxide 31.0 Anion Gap 10 BUN 57 H Creatinine 1.23 Estim Creat Clear Calc 54.13 Est GFR (MDRD) Af Amer 73 Est GFR (MDRD) Non-Af 60 BUN/Creatinine Ratio 46.3 H Glucose 221 H Calcium 8.2 L POC Glucose 10/28/17 10/28/17 10/27/17 12:28 05:35 23:20 POC Glucose 273 H 212 H 274 H 10/27/17 10/27/17 21:05 18:31 POC Glucose 258 H 319 H Medical Necessity - Tobacco Use Smoking Status: Former smoker Assessment/Plan All Active Problems Severe sepsis (Acute) Supratherapeutic INR (Acute) Acute respiratory failure with hypoxia (Acute) Pneumonia (Acute) Coronary artery disease (Acute) 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) Venous ulcer of right leg (Resolved) #1 severe sepsis secondary to community-acquired pneumonia with Haemophilus influenza-patient will remain on his current antibiotic coverage which is now oral #2 acute hypoxic respiratory failure secondary to #1-continue to monitor O2, patient is a DNR CC arrest #3 chronic A. fib #4 supratherapeutic INR-INR today was lower, repeat labs tomorrow #5 coronary artery disease #6 type 2 diabetes Code Visit Inpatient E&M: 12432 Subs Hosp L2
[2017-10-28 17:46] LABS: Bedside Glucose 271 mg/dL (70-110)
[2017-10-28] MEDS: Atorvastatin Calcium 80 MG Tablet PO (20:59)
[2017-10-28] MEDS: Zolpidem Tartrate 5 MG Tablet PO (20:59)
[2017-10-28] MEDS: Polyethylene Glycol 3350 17 GM PACKET PO (20:59)
[2017-10-28 21:15] LABS: Bedside Glucose 334 mg/dL (70-110)
[2017-10-29] VITALS (20 sets, daily range): BP systolic 128–179; BP diastolic 52–75; PULSE 63–98; RESP 16–24; TEMP 36.4–37.2; O2SAT 90–99
[2017-10-29] MEDS: Ipratropium/Albuterol Sulfate 3 ML AMPUL.NEB INHALATION ×5 (00:03→18:50)
[2017-10-29 03:48] LABS: Absolute Lymphocyte Count 0.68 X10^3/ul (0.83-4.51); Absolute Neutrophil Count 12.5 X10^3/uL (2.0-7.7); Basophil# 0.05 X10^3/uL; Basophil% 0.3 % (0-1); Hemoglobin 9.8 g/dl (13.0-16.5); Lymphocyte # 0.68 X10^3/ul (4.0); Lymphocyte % 4.6 % (19-41); Mean Corp Hgb Conc 33.8 g/gl (32-36); Mean Corpuscular Hgb 29.6 pg (27.0-32.0); Mean Corpuscular Volume 87.6 fL (80-94); Mean Platelet Vol. 8.7 fl (6.2-12.0); Monocyte# 1.18 X10^3/uL; Neutrophil # 12.52 X10^3/uL (2.7-7.7); Neutrophil % 84.4 % (47-70); Platelet Count 202 K/mm3 (150-450); Prothrombin Time (Protime)PT. 35.2 SECONDS (11.7-14.9); RBC Distribution Width CV 14.4 % (11.6-14.6); RBC Distribution Width SD 44.6 fl (35.1-43.9); Red Blood Count 3.31 M/mm3 (4.6-6.2); White Blood Count 14.8 K/mm3 (4.4-11.0)
[2017-10-29] MEDS: Acetaminophen 325 MG Tablet 650 MG PO (03:49)
[2017-10-29] MEDS: oxyCODONE 5 MG Tablet PO ×2 (03:49→21:42)
[2017-10-29] MEDS: 0.9% NaCl Peripheral Flush Adult/Peds IV (03:49)
[2017-10-29] MEDS: CHLORHEXIDINE GLUC 2% CLOTH 1 EACH TOWELETTE TOPICAL (03:49)
[2017-10-29 03:54] LABS: POSITIVE COUNT YES; POSITIVE DIFFERENTIAL NO; POSITIVE MORPHOLOGY YES
--- NOTE | 2017-10-29 04:14 | CPS ---
pt refused bipap this pm. RN aware
[2017-10-29 04:17] LABS: Anion Gap 8 (5-15); BUN 50 mg/dL (7-18); Calcium,Total 8.3 mg/dL (8.5-10.1); Chloride 99 mmol/L (98-107); Creatinine, Serum 1.19 mg/dL (0.70-1.30); EST Glomerular Filtration Rate 62 mL/min (>60); Est Glom Filt Rate - Afr Amer 76 mL/min (>60); Estimated Creatinine Clearance 55.95 ml/min; Glucose 194 mg/dL (74-106); Potassium 3.5 mmol/L (3.5-5.1); Sodium Level 140 mmol/L (136-145)
[2017-10-29 04:51] LABS: International Normalized Ratio 3.5
[2017-10-29] MEDS: levoFLOXacin 750 MG Tablet PO (05:35)
[2017-10-29] MEDS: Insulin Lispro 100 UNIT/ML INSULN.PEN SQ ×4 (05:36→21:45)
[2017-10-29 05:46] LABS: Bedside Glucose 182 mg/dL (70-110)
--- NOTE | 2017-10-29 06:30 | PCM.PN.INT ---
Subjective: Patient did well overnight. No acute issues were reported. Patient did have brief episodes of confusion, but no agitation was reported. Patient continues to have some nasal stuffiness, but no epistaxis or hemoptysis is been reported. Patient has been able to be weaned to 6 L nasal cannula and appears to be tolerating well. Patient continues to have dyspnea on exertion. General: Alert, Oriented x3, Cooperative, No apparent distress, - - Appears stated age. Speaking in full sentences. HEENT: Atraumatic, PERRLA, EOMI, Normocephalic, - - No scleral icterus or injection noted. Oral: Moist Mucosa, No Gingival or Mucosal Lesions/ Ulcerations Neck: Supple, No JVD, No Nodes, Trachea Midline Lungs: No wheeze, No rales, Diminished, Rhonchi - Improving, right greater than left, - - Symmetric expansion. Cardiovascular: Normal S1, Normal S2, No murmurs, Irregular Rate, No rub noted, No Gallop Abdomen: Bowel Sounds Present, Soft, Non Tender, Non-Distended, Obese Extremities: No clubbing, No cyanosis, No edema Skin: - - No significant change compared to previous. Vascular insufficiency changes of the lower extremities Musculoskeletal: No Tenderness to Palpation of Joints or Extremities Lymphatic: No Cervical, Supraclavicular, or Inguinal Adenopathy Neurological: Cranial nerves II-XII grossly intact, Neuro grossly intact, Motor Exam 5/5 strength throughout Psych/Mental Status: Alert and oriented to time, place, person, mood and affect Vital Signs Temp Pulse Resp BP Pulse Ox 36.6 C 71 16 150/52 H 93 10/29/17 04:00 10/29/17 04:00 10/29/17 04:00 10/29/17 04:00 10/29/17 04:14 Oxygen Flow Rate (L/min) 6 Oxygen Delivery Method Nasal Cannula Weight: 115.6 kg Body Mass Index (BMI) 33.0 Intake and Output for Last 24 Hours 10/27/17 10/28/17 10/29/17 23:59 23:59 23:59 Intake Total 1815 / 1815 2770 / 2770 300 / 300 Output Total 2850 / 2850 3075 / 3075 1450 / 1450 Balance -1035 / -1035 -305 / -305 -1150 / -1150 Labs (Last 48 Hours) 10/27/17 10/27/17 10/27/17 08:44 08:50 08:50 WBC 9.3 RBC 3.66 L Hgb 10.5 L Hct 32.7 L MCV 89.3 MCH 28.7 MCHC 32.1 RDW 14.6 RDW Differential 47.7 H Plt Count 167 MPV 8.8 Immature Gran % (Auto) Neut % (Auto) Lymph % (Auto) [place] % (Auto) Eos % (Auto) Baso % (Auto) Absolute Neuts (auto) Absolute Lymphs (auto) Total Counted Diff Path Review PT INR Sodium 132 L Potassium 3.5 Chloride 93 L Carbon Dioxide 27.0 Anion Gap 12 BUN 50 H Creatinine 1.38 H Estim Creat Clear Calc 48.25 Est GFR (MDRD) Af Amer 64 Est GFR (MDRD) Non-Af 53 L BUN/Creatinine Ratio 36.2 H Glucose 293 H Calcium 8.0 L Phosphorus Magnesium 2.4 POC Glucose 299 H 10/27/17 10/27/17 10/27/17 08:50 08:50 12:14 WBC RBC Hgb Hct MCV MCH MCHC RDW RDW Differential Plt Count MPV Immature Gran % (Auto) Neut % (Auto) Lymph % (Auto) [place] % (Auto) Eos % (Auto) Baso % (Auto) Absolute Neuts (auto) Absolute Lymphs (auto) Total Counted Diff Path Review PT 71.2 H INR 8.5 H* Sodium Potassium Chloride Carbon Dioxide Anion Gap BUN Creatinine Estim Creat Clear Calc Est GFR (MDRD) Af Amer Est GFR (MDRD) Non-Af BUN/Creatinine Ratio Glucose Calcium Phosphorus 4.1 Magnesium POC Glucose 287 H 10/27/17 10/27/17 10/27/17 18:31 21:05 23:20 WBC RBC Hgb Hct MCV MCH MCHC RDW RDW Differential Plt Count MPV Immature Gran % (Auto) Neut % (Auto) Lymph % (Auto) [place] % (Auto) Eos % (Auto) Baso % (Auto) Absolute Neuts (auto) Absolute Lymphs (auto) Total Counted Diff Path Review PT INR Sodium Potassium Chloride Carbon Dioxide Anion Gap BUN Creatinine Estim Creat Clear Calc Est GFR (MDRD) Af Amer Est GFR (MDRD) Non-Af BUN/Creatinine Ratio Glucose Calcium Phosphorus Magnesium POC Glucose 319 H 258 H 274 H 0710/28/17 10/28/17 03:50 03:50 03:50 WBC 16.0 H RBC 3.39 L Hgb 9.7 L Hct 29.7 L MCV 87.6 MCH 28.6 MCHC 32.7 RDW 14.4 RDW Differential 46.0 H Plt Count 182 MPV 9.1 Immature Gran % (Auto) 0.700 Neut % (Auto) 88.3 H Lymph % (Auto) 6.3 L [place] % (Auto) 4.4 Eos % (Auto) 0.2 Baso % (Auto) 0.1 Absolute Neuts (auto) 14.1 H Absolute Lymphs (auto) 1.01 Total Counted Not Reportable Diff Path Review PT 42.2 H INR 4.4 H* Sodium 136 Potassium 3.5 Chloride 95 L Carbon Dioxide 31.0 Anion Gap 10 BUN 57 H Creatinine 1.23 Estim Creat Clear Calc 54.13 Est GFR (MDRD) Af Amer 73 Est GFR (MDRD) Non-Af 60 BUN/Creatinine Ratio 46.3 H Glucose 221 H Calcium 8.2 L Phosphorus Magnesium POC Glucose 10/28/17 10/28/17 10/28/17 05:35 12:28 17:20 WBC RBC Hgb Hct MCV MCH MCHC RDW RDW Differential Plt Count MPV Immature Gran % (Auto) Neut % (Auto) Lymph % (Auto) [place] % (Auto) Eos % (Auto) Baso % (Auto) Absolute Neuts (auto) Absolute Lymphs (auto) Total Counted Diff Path Review PT INR Sodium Potassium Chloride Carbon Dioxide Anion Gap BUN Creatinine Estim Creat Clear Calc Est GFR (MDRD) Af Amer Est GFR (MDRD) Non-Af BUN/Creatinine Ratio Glucose Calcium Phosphorus Magnesium POC Glucose 212 H 273 H 271 H 10/28/17 10/29/17 10/29/17 21:07 03:35 03:35 WBC 14.8 H RBC 3.31 L Hgb 9.8 L Hct 29.0 L MCV 87.6 MCH 29.6 MCHC 33.8 RDW 14.4 RDW Differential 44.6 H Plt Count 202 MPV 8.7 Immature Gran % (Auto) 2.700 H Neut % (Auto) 84.4 H Lymph % (Auto) 4.6 L [place] % (Auto) 8.0 Eos % (Auto) 0.0 Baso % (Auto) 0.3 Absolute Neuts (auto) 12.5 H Absolute Lymphs (auto) 0.68 L Total Counted Not Reportable Diff Path Review May foll PT 35.2 H INR 3.5 H* Sodium Potassium Chloride Carbon Dioxide Anion Gap BUN Creatinine Estim Creat Clear Calc Est GFR (MDRD) Af Amer Est GFR (MDRD) Non-Af BUN/Creatinine Ratio Glucose Calcium Phosphorus Magnesium POC Glucose 334 H 10/29/17 10/29/17 03:35 05:34 WBC RBC Hgb Hct MCV MCH MCHC RDW RDW Differential Plt Count MPV Immature Gran % (Auto) Neut % (Auto) Lymph % (Auto) [place] % (Auto) Eos % (Auto) Baso % (Auto) Absolute Neuts (auto) Absolute Lymphs (auto) Total Counted Diff Path Review PT INR Sodium 140 Potassium 3.5 Chloride 99 Carbon Dioxide 33.0 H Anion Gap 8 BUN 50 H Creatinine 1.19 Estim Creat Clear Calc 55.95 Est GFR (MDRD) Af Amer 76 Est GFR (MDRD) Non-Af 62 BUN/Creatinine Ratio 42.0 H Glucose 194 H Calcium 8.3 L Phosphorus Magnesium POC Glucose 182 H Microbiology 10/25/17 18:49 Sputum, Expectorated/Coughed Gram Stain - Final 10/25/17 18:49 Sputum, Expectorated/Coughed Respiratory Culture - Final Haemophilus influenzae Presumptive C albicans Mixed Ruth Medical Necessity - Tobacco Use Smoking Status: Former smoker Assessment/Plan All Active Problems Severe sepsis (Acute) Supratherapeutic INR (Acute) Acute respiratory failure with hypoxia (Acute) Pneumonia (Acute) Coronary artery disease (Acute) 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) Venous ulcer of right leg (Resolved) RECOMMENDATIONS: 1. Supplemental oxygen as tolerated to keep saturations greater than 88% 2. Continue Levaquin and prednisone 3. Wean oxygen as tolerated 4. Aggressive pulmonary toileting and nasal saline washes 5. Okay to leave the intensive care unit from my perspective IMPRESSSIONS: 1. Acute hypoxic respiratory failure secondary to Haemophilus influenza pneumonia Patient with a patchy dense infiltrate noted on the right-hand side. Cannot exclude underlying metastasis, but patient is reporting purulent sputum. Patient is more cooperative today compared to previous. Patient is tolerating nasal cannula with acceptable saturations. We will continue with prednisone and Levaquin therapy. Patient may require saline rinses. Attempted to discuss with the patient about use of mask to avoid nasal congestion, but patient is not interested. Possible decrease in prednisone therapy tomorrow if continues to improve. 2. Acute kidney injury IMPROVING > patient previously with normal renal function in May. Presentation creatinine of 1.44, likely secondary to prerenal etiology. Renal function has still not completely improved. Patient with poor intake at this time. We will continue to encourage p.o. intake. 3. Persistent A. fib/coronary artery disease status post CABG/supratherapeutic INR Patient with supratherapeutic INR at this time. Unclear if this is related to the acute illness versus Coumadin dosing. Patient does state that he tends to run high. Patient was given vitamin K yesterday. INR of 3.5 is still elevated, but acceptable given level of bleeding at this time. No reinitiation of Coumadin therapy at this time 4. Diabetes mellitus type 2 Patient will likely not be able to tolerate much p.o. intake given respiratory rate. Patient is currently on Lantus, Amaryl and lispro. Amaryl was discontinued given renal function. Sliding scale insulin if patient is agreeable. 5. Agitation/advanced age/hypertension/hypercholesterolemia/BPH Complicates care, management, recovery and prognosis. Patient is very clear that he is a DNR Comfort Care arrest without intubation. Antihypertensive medications can be continued. Patient appears to be stabilizing and is more agreeable with recommendations of care. Patient remains a DNR Comfort Care arrest without intubation. Code Visit Inpatient E&M: [id number] [place] [id number]
[2017-10-29] MEDS: predniSONE 20 MG Tablet 40 MG PO (08:01)
[2017-10-29] MEDS: Aspirin E.C. 81 MG Tablet PO (08:02)
[2017-10-29] MEDS: Insulin Lispro 100 UNIT/ML INSULN.PEN 10 UNIT SQ ×4 (08:02→21:45)
[2017-10-29] MEDS: Glucerna Shake 120 ML LIQUID PO ×2 (09:59→16:30)
[2017-10-29] MEDS: guaiFENesin 1,200 MG Tablet 1200 MG PO ×2 (10:00→21:47)
[2017-10-29] MEDS: Tamsulosin HCl 0.4 MG Capsule PO (10:00)
[2017-10-29] MEDS: amLODIPine 5 MG Tablet PO (10:00)
[2017-10-29] MEDS: Labetalol 100 MG Tablet PO ×2 (10:00→21:44)
[2017-10-29] MEDS: Furosemide 40 MG Tablet PO ×2 (10:00→16:30)
[2017-10-29] MEDS: Cyanocobalamin 500 MCG Tablet 1000 MCG PO (10:01)
[2017-10-29] MEDS: Sertraline 50 MG Tablet PO (10:01)
--- NOTE | 2017-10-29 11:37 | PN_ITS ---
Patient Problems: Active and Suspected Problems Severe sepsis (Acute) Supratherapeutic INR (Acute) Acute respiratory failure with hypoxia (Acute) Pneumonia (Acute) Coronary artery disease (Acute) Subjective: Patient was seen and examined today in ICU, pulmonary medicine feels he is stable to move out to telemetry, patient states he feels he is breathing better. Patient is now on 6 L of oxygen via nasal cannula. - Physical Exam General: Alert, Oriented x3, Cooperative, No apparent distress, Well developed HEENT: Atraumatic, PERRLA, EOMI, Normocephalic Oral: Moist Mucosa Neck: Supple, No JVD, No Nuchal Rigidity, Trachea Midline, Thyroid Normal Size and Texture Lungs: Clear to auscultation, Normal air movement, No rhonchi, No rales, Wheezes - Fine scattered expiratory wheezes are noted bilaterally Cardiovascular: PMI Normal, Irregular Rate, Murmur - 2/6 systolic murmur is noted at the apex, No rub noted, No Gallop Abdomen: Bowel Sounds Present, Soft, Non Tender, Non-Distended, No hernias noted Extremities: No clubbing, Capillary Refill Less than 3 Seconds Skin: No rashes, No breakdown Musculoskeletal: No Tenderness to Palpation of Joints or Extremities Neurological: Cranial nerves II-XII grossly intact, Neuro grossly intact, Sensory exam intact to light touch and pain, Coordination normal Psych/Mental Status: Normal Affect, Appropriate, Alert and oriented to time, place, person, mood and affect Vital Signs Temp Pulse Resp BP Pulse Ox 98.4 F 85 20 H 166/68 H 93 10/29/17 08:00 10/29/17 08:00 10/29/17 08:00 10/29/17 08:00 10/29/17 08:00 Oxygen Flow Rate (L/min) 6 Oxygen Delivery Method Nasal Cannula Weight: 115.6 kg Body Mass Index (BMI) 33.0 Intake and Output for Last 24 Hours 10/27/17 10/28/17 10/29/17 23:59 23:59 23:59 Intake Total 1815 / 1815 2770 / 2770 300 / 300 Output Total 2850 / 2850 3075 / 3075 1450 / 1450 Balance -1035 / -1035 -305 / -305 -1150 / -1150 Microbiology Past 72 Hours 10/25/17 18:49 Gram Stain - Final Sputum, Expectorated/Coughed Respiratory Culture - Final Haemophilus influenzae Presumptive C albicans Mixed Ruth 10/26/17 10:15 Legionella Antigen - Final Urine, Clean Catch 10/26/17 10:15 Streptococcus pneumoniae Antigen (M - Final Urine, Clean Catch Laboratory Tests Past 24 Hrs 10/29/17 10/29/17 10/29/17 03:35 03:35 03:35 WBC 14.8 H RBC 3.31 L Hgb 9.8 L Hct 29.0 L MCV 87.6 MCH 29.6 MCHC 33.8 RDW 14.4 RDW Differential 44.6 H Plt Count 202 MPV 8.7 Immature Gran % (Auto) 2.700 H Neut % (Auto) 84.4 H Lymph % (Auto) 4.6 L [place] % (Auto) 8.0 Eos % (Auto) 0.0 Baso % (Auto) 0.3 Absolute Neuts (auto) 12.5 H Absolute Lymphs (auto) 0.68 L Total Counted Not Reportable Diff Path Review August foll PT 35.2 H INR 3.5 H* Sodium 140 Potassium 3.5 Chloride 99 Carbon Dioxide 33.0 H Anion Gap 8 BUN 50 H Creatinine 1.19 Estim Creat Clear Calc 55.95 Est GFR (MDRD) Af Amer 76 Est GFR (MDRD) Non-Af 62 BUN/Creatinine Ratio 42.0 H Glucose 194 H Calcium 8.3 L POC Glucose 10/29/17 10/28/17 10/28/17 05:34 21:07 17:20 POC Glucose 182 H 334 H 271 H 10/28/17 12:28 POC Glucose 273 H Medical Necessity - Tobacco Use Smoking Status: Former smoker Assessment/Plan All Active Problems Severe sepsis (Acute) Supratherapeutic INR (Acute) Acute respiratory failure with hypoxia (Acute) Pneumonia (Acute) Coronary artery disease (Acute) 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) Venous ulcer of right leg (Resolved) #1 severe sepsis secondary to community-acquired pneumonia with Haemophilus influenza-patient will remain on his current antibiotic coverage which is now oral Levaquin, he appears stable for transfer to PCU #2 acute hypoxic respiratory failure secondary to #1-continue to monitor O2, patient is a DNR CC arrest #3 chronic A. fib #4 supratherapeutic INR-INR today was lower, repeat labs tomorrow #5 coronary artery disease #6 type 2 diabetes Code Visit Inpatient E&M: 02037 Subs Hosp L2
[2017-10-29] MEDS: Magnesium Citrate 300 ML 150 ML PO (12:28)
[2017-10-29 12:31] LABS: Bedside Glucose 199 mg/dL (70-110)
[2017-10-29 16:56] LABS: Bedside Glucose 222 mg/dL (70-110)
[2017-10-29] MEDS: Zolpidem Tartrate 5 MG Tablet PO (21:42)
[2017-10-29] MEDS: Atorvastatin Calcium 80 MG Tablet PO (21:44)
[2017-10-29 23:26] LABS: Bedside Glucose 249 mg/dL (70-110)
[2017-10-30] VITALS (15 sets, daily range): BP systolic 134–175; BP diastolic 52–76; PULSE 70–91; RESP 16–24; TEMP 36.5–37; O2SAT 83–96
[2017-10-30] MEDS: Ipratropium/Albuterol Sulfate 3 ML AMPUL.NEB INHALATION ×3 (01:42→11:11)
[2017-10-30] MEDS: Albuterol 2.5 MG/3 ML VIAL.NEB. INHALATION (03:45)
--- NOTE | 2017-10-30 05:55 | RAD_ITS ---
STUDY: X-RAY CHEST REASON FOR EXAM: Male, 82 years old. Dyspnea TECHNIQUE: Single AP portable view of the chest. COMPARISON: 10/25/2017 FINDINGS: Pacemaker is seen on the left side. Patchy airspace opacities are seen in both lungs have improved since the previous study consistent with bilateral pneumonia. There is no demonstrated pleural abnormality. Normal size heart. Normal mediastinum and amauri. Normal visualized pulmonary arteries. Normal visualized aortic arch and descending thoracic aorta. Normal visualized thoracic spine. Normal visualized ribs, clavicles, and shoulders. There is no demonstrated abnormality of the visualized soft tissue structures of the upper abdomen. RAD/Chest 1 View (Portable) IMPRESSION: Resolving bilateral pneumonia. Electronically Signed: Denis Erwin MD at 5:32 EDT Tel , Service support ,
[2017-10-30] MEDS: levoFLOXacin 750 MG Tablet PO (06:29)
[2017-10-30 06:39] LABS: Anion Gap 9 (5-15); BUN 42 mg/dL (7-18); BUN/Creat Ratio 36.8 RATIO (10-20); Calcium,Total 8.3 mg/dL (8.5-10.1); Chloride 98 mmol/L (98-107); Creatinine, Serum 1.14 mg/dL (0.70-1.30); EST Glomerular Filtration Rate 66 mL/min (>60); Est Glom Filt Rate - Afr Amer 79 mL/min (>60); Estimated Creatinine Clearance 58.41 ml/min; Glucose 233 mg/dL (74-106); Potassium 3.5 mmol/L (3.5-5.1); Sodium Level 141 mmol/L (136-145)
[2017-10-30 06:47] LABS: Prothrombin Time (Protime)PT. 36.1 SECONDS (11.7-14.9)
[2017-10-30 06:50] LABS: Hematocrit 29.9 % (40-54); Hemoglobin 9.8 g/dl (13.0-16.5); Mean Corp Hgb Conc 32.8 g/gl (32-36); Mean Corpuscular Hgb 28.8 pg (27.0-32.0); Mean Corpuscular Volume 87.9 fL (80-94); Mean Platelet Vol. 9.2 fl (6.2-12.0); Platelet Count 194 K/mm3 (150-450); RBC Distribution Width CV 14.9 % (11.6-14.6); RBC Distribution Width SD 46.7 fl (35.1-43.9); White Blood Count 18.1 K/mm3 (4.4-11.0)
[2017-10-30 06:51] LABS: International Normalized Ratio 3.6
[2017-10-30 06:59] LABS: Differential Indicated MANUAL DIFF; POSITIVE COUNT YES; POSITIVE DIFFERENTIAL NO; POSITIVE MORPHOLOGY YES
[2017-10-30 07:02] LABS: Lymphocyte 4 % (19-41); Metamyelocyte 4 % (0-1); Monocyte 4 % (0-10); Neutrophil-Band 2 % (0-5); Neutrophil-Segmented 86 % (47-70); Platelet Estimate ADEQUATE (ADEQ); Red Cell Morphology NORM C+C NORMAL (NORM C&C); Total Cells Counted 100 (MANUAL DIFF); Toxic Granulation 3+
[2017-10-30 07:03] LABS: Absolute Lymphocyte Count 0.72 X10^3/ul (0.83-4.51); Lymphocyte # 0.72 X10^3/ul (4.0)
[2017-10-30 07:04] LABS: Absolute Neutrophil Count 15.9 X10^3/uL (2.0-7.7); Neutrophil # 15.92 X10^3/uL (2.7-7.7)
[2017-10-30 07:06] LABS: Bedside Glucose 245 mg/dL (70-110)
[2017-10-30] MEDS: Insulin Lispro 100 UNIT/ML INSULN.PEN 10 UNIT SQ ×2 (08:41→11:21)
[2017-10-30] MEDS: Insulin Lispro 100 UNIT/ML INSULN.PEN SQ ×2 (08:41→11:21)
[2017-10-30] MEDS: Glucerna Shake 120 ML LIQUID PO (08:42)
[2017-10-30] MEDS: predniSONE 20 MG Tablet 40 MG PO (08:42)
[2017-10-30] MEDS: Aspirin E.C. 81 MG Tablet PO (08:42)
[2017-10-30] MEDS: Tamsulosin HCl 0.4 MG Capsule PO (08:42)
[2017-10-30] MEDS: Furosemide 40 MG Tablet PO (08:43)
[2017-10-30] MEDS: amLODIPine 5 MG Tablet PO (08:43)
[2017-10-30] MEDS: Labetalol 100 MG Tablet PO (08:43)
[2017-10-30] MEDS: guaiFENesin 1,200 MG Tablet 1200 MG PO (08:43)
[2017-10-30] MEDS: Cyanocobalamin 500 MCG Tablet 1000 MCG PO (08:43)
[2017-10-30] MEDS: Sertraline 50 MG Tablet PO (08:44)
[2017-10-30] MEDS: oxyCODONE 5 MG Tablet PO (08:44)
--- NOTE | 2017-10-30 10:32 | PCM.PROGNOTE ---
Patient Problems: Active and Suspected Problems Severe sepsis (Acute) Supratherapeutic INR (Acute) Acute respiratory failure with hypoxia (Acute) Pneumonia (Acute) Coronary artery disease (Acute) Subjective: The patient was seen and examined at the bedside this morning. Events from the last 24 hours have been reviewed. The patient is currently afebrile, hemodynamically stable and maintaining appropriate oxygen saturations on 4 L/min via nasal cannula. The patient reports improvement in his breathing quality and is anxious to be discharged home. Objective: The patient's most recent lab work, culture data and imaging studies have all been personally reviewed. Expectorated sputum culture dated October 25 was positive for Haemophilus influenza. - Physical Exam General: Alert, Cooperative, No apparent distress HEENT: Atraumatic, PERRLA, Normocephalic Oral: No Gingival or Mucosal Lesions/ Ulcerations Neck: Supple, No Nodes, Trachea Midline Lungs: No wheeze, No rales, Diminished, Rhonchi Cardiovascular: Normal S1, Normal S2, No murmurs, Irregular Rate Abdomen: Bowel Sounds Present, Soft, Non Tender, Obese Extremities: No clubbing, No cyanosis, No edema Skin: - - Lower extremity venous stasis dermatitis Musculoskeletal: No Tenderness to Palpation of Joints or Extremities Lymphatic: No Cervical, Supraclavicular, or Inguinal Adenopathy Neurological: Neuro grossly intact Psych/Mental Status: Alert and oriented to time, place, person, mood and affect Vital Signs Temp Pulse Resp BP Pulse Ox 98.6 F 86 16 134/52 H 96 10/30/17 08:50 10/30/17 08:50 10/30/17 08:50 10/30/17 08:50 10/30/17 08:50 Oxygen Flow Rate (L/min) 4 Oxygen Delivery Method Nasal Cannula Weight: 255 lb 4.725 oz Body Mass Index (BMI) 33.0 Intake and Output for Last 24 Hours 10/28/17 10/29/17 10/30/17 23:59 23:59 23:59 Intake Total 2770 / 2770 300 / 300 1300 / 1300 Output Total 3075 / 3075 2600 / 2600 1600 / 1600 Balance -305 / -305 -2300 / -2300 -300 / -300 Microbiology Past 72 Hours 10/25/17 18:49 Gram Stain - Final Sputum, Expectorated/Coughed Respiratory Culture - Final Haemophilus influenzae Presumptive C albicans Mixed Ruth Laboratory Tests Past 24 Hrs 10/30/17 10/30/17 10/30/17 06:05 06:05 06:05 WBC 18.1 H RBC 3.40 L Hgb 9.8 L Hct 29.9 L MCV 87.9 MCH 28.8 MCHC 32.8 RDW 14.9 H RDW Differential 46.7 H Plt Count 194 MPV 9.2 Neut % (Auto) Not Reportable Absolute Neuts (auto) 15.9 H Absolute Lymphs (auto) 0.72 L Total Counted 100 Neutrophils % (Manual) 86 H Band Neutrophils % 2 Lymphocytes % (Manual) 4 L Monocytes % (Manual) 4 Metamyelocytes % 4 H Diff Path Review May foll Toxic Granulation 3+ Platelet Estimate ADEQUATE RBC Morphology NORM C+C PT 36.1 H INR 3.6 H* Sodium 141 Potassium 3.5 Chloride 98 Carbon Dioxide 34.0 H Anion Gap 9 BUN 42 H Creatinine 1.14 Estim Creat Clear Calc 58.41 Est GFR (MDRD) Af Amer 79 Est GFR (MDRD) Non-Af 66 BUN/Creatinine Ratio 36.8 H Glucose 233 H Calcium 8.3 L POC Glucose 10/30/17 10/29/17 10/29/17 06:51 21:40 16:28 POC Glucose 245 H 249 H 222 H 10/29/17 12:23 POC Glucose 199 H Clinical Impression(s) from Imaging Studies Chest X-Ray 10/25/17 14:23 IMPRESSION: Patchy infiltrates with nodular appearance in the right lung as described and to a lesser degree on the left side. Bilateral pneumonic infiltrates should be ruled out. Underlying metastasis cannot be excluded. Radiographic follow-up is recommended. Electronically Signed: Paul Nair MD at 14:42 EDT Tel [phone], Service support , Chest X-Ray 10/30/17 05:55 IMPRESSION: Resolving bilateral pneumonia. Electronically Signed: Denis Erwin MD at 5:32 EDT Tel , Service support , Medical Necessity - Tobacco Use Smoking Status: Former smoker Assessment/Plan All Active Problems Severe sepsis (Acute) Supratherapeutic INR (Acute) Acute respiratory failure with hypoxia (Acute) Pneumonia (Acute) Coronary artery disease (Acute) 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) Venous ulcer of right leg (Resolved) RECOMMENDATIONS: 1. Continue antibiotics to complete a 7 day treatment course. 2. Recommend steroid taper at discharge. 3. Perform walking oximetry study prior to consideration for discharge. Anticipate home-going oxygen need. 4. Encourage incentive spirometer use and mobilize patient as tolerated. 5. Please ensure that the patient has a follow-up appointment scheduled with our nurse practitioner in the pulmonary medicine clinic within 2 weeks of his discharge. IMPRESSIONS: 1. Acute hypoxic respiratory failure secondary to Haemophilus influenza pneumonia Patient with a patchy dense infiltrate noted on the right-hand side. The patient is clinically improving with antibiotics, steroids and bronchodilators. Continue to wean supplemental oxygen as tolerated. Perform walking oximetry study prior to consideration for discharge from the hospital. Recommend completing a 7 day treatment course of antibiotics along with a prednisone taper at the time he is discharged. He should follow-up in the pulmonary medicine clinic within 2 weeks. 2. Acute kidney injury IMPROVING > patient previously with normal renal function in May. Presentation creatinine of 1.44, likely secondary to prerenal etiology. 3. Persistent A. fib/coronary artery disease status post CABG/supratherapeutic INR Patient with supratherapeutic INR at this time. Unclear if this is related to the acute illness versus Coumadin dosing. 4. Diabetes mellitus type 2 Continue sliding-scale insulin coverage. 5. Agitation/advanced age/hypertension/hypercholesterolemia/BPH Complicates care, management, recovery and prognosis. Patient is very clear that he is a DNR Comfort Care arrest without intubation. Antihypertensive medications can be continued. This note was generated with [employer] dictation software. It may contain incorrect words, spelling, and punctuation that were not noted in checking the note before signing. Code Visit Inpatient E&M: 55215 Subs Hosp L2
--- NOTE | 2017-10-30 10:35 | PN_ITS ---
Patient Problems: Active and Suspected Problems Severe sepsis (Acute) Supratherapeutic INR (Acute) Acute respiratory failure with hypoxia (Acute) Pneumonia (Acute) Coronary artery disease (Acute) Subjective: The patient was seen and examined at the bedside this morning. Events from the last 24 hours have been reviewed. The patient is currently afebrile, hemodynamically stable and maintaining appropriate oxygen saturations on 4 L/ min via nasal cannula. The patient reports improvement in his breathing quality and is anxious to be discharged home. Objective: The patient's most recent lab work, culture data and imaging studies have all been personally reviewed. Expectorated sputum culture dated October 25 was positive for Haemophilus influenza. - Physical Exam General: Alert, Cooperative, No apparent distress HEENT: Atraumatic, PERRLA, Normocephalic Oral: No Gingival or Mucosal Lesions/ Ulcerations Neck: Supple, No Nodes, Trachea Midline Lungs: No wheeze, No rales, Diminished, Rhonchi Cardiovascular: Normal S1, Normal S2, No murmurs, Irregular Rate Abdomen: Bowel Sounds Present, Soft, Non Tender, Obese Extremities: No clubbing, No cyanosis, No edema Skin: - - Lower extremity venous stasis dermatitis Musculoskeletal: No Tenderness to Palpation of Joints or Extremities Lymphatic: No Cervical, Supraclavicular, or Inguinal Adenopathy Neurological: Neuro grossly intact Psych/Mental Status: Alert and oriented to time, place, person, mood and affect Vital Signs Temp Pulse Resp BP Pulse Ox 98.6 F 86 16 134/52 H 96 10/30/17 08:50 10/30/17 08:50 10/30/17 08:50 10/30/17 08:50 10/30/17 08:50 Oxygen Flow Rate (L/min) 4 Oxygen Delivery Method Nasal Cannula Weight: 255 lb 4.725 oz Body Mass Index (BMI) 33.0 Intake and Output for Last 24 Hours 10/28/17 10/29/17 10/30/17 23:59 23:59 23:59 Intake Total 2770 / 2770 300 / 300 1300 / 1300 Output Total 3075 / 3075 2600 / 2600 1600 / 1600 Balance -305 / -305 -2300 / -2300 -300 / -300 Microbiology Past 72 Hours 10/25/17 18:49 Gram Stain - Final Sputum, Expectorated/Coughed Respiratory Culture - Final Haemophilus influenzae Presumptive C albicans Mixed Ruth Laboratory Tests Past 24 Hrs 10/30/17 10/30/17 10/30/17 06:05 06:05 06:05 WBC 18.1 H RBC 3.40 L Hgb 9.8 L Hct 29.9 L MCV 87.9 MCH 28.8 MCHC 32.8 RDW 14.9 H RDW Differential 46.7 H Plt Count 194 MPV 9.2 Neut % (Auto) Not Reportable Absolute Neuts (auto) 15.9 H Absolute Lymphs (auto) 0.72 L Total Counted 100 Neutrophils % (Manual) 86 H Band Neutrophils % 2 Lymphocytes % (Manual) 4 L Monocytes % (Manual) 4 Metamyelocytes % 4 H Diff Path Review May foll Toxic Granulation 3+ Platelet Estimate ADEQUATE RBC Morphology NORM C+C PT 36.1 H INR 3.6 H* Sodium 141 Potassium 3.5 Chloride 98 Carbon Dioxide 34.0 H Anion Gap 9 BUN 42 H Creatinine 1.14 Estim Creat Clear Calc 58.41 Est GFR (MDRD) Af Amer 79 Est GFR (MDRD) Non-Af 66 BUN/Creatinine Ratio 36.8 H Glucose 233 H Calcium 8.3 L POC Glucose 10/30/17 10/29/17 10/29/17 06:51 21:40 16:28 POC Glucose 245 H 249 H 222 H 10/29/17 12:23 POC Glucose 199 H Clinical Impression(s) from Imaging Studies Chest X-Ray 10/25/17 14:23 IMPRESSION: Patchy infiltrates with nodular appearance in the right lung as described and to a lesser degree on the left side. Bilateral pneumonic infiltrates should be ruled out. Underlying metastasis cannot be excluded. Radiographic follow-up is recommended. Electronically Signed: Paul Nair MD at 14:42 EDT Tel [phone], Service support , Chest X-Ray 10/30/17 05:55 IMPRESSION: Resolving bilateral pneumonia. Electronically Signed: Denis Erwin MD at 5:32 EDT Tel , Service support , Medical Necessity - Tobacco Use Smoking Status: Former smoker Assessment/Plan All Active Problems Severe sepsis (Acute) Supratherapeutic INR (Acute) Acute respiratory failure with hypoxia (Acute) Pneumonia (Acute) Coronary artery disease (Acute) 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) Venous ulcer of right leg (Resolved) RECOMMENDATIONS: 1. Continue antibiotics to complete a 7 day treatment course. 2. Recommend steroid taper at discharge. 3. Perform walking oximetry study prior to consideration for discharge. Anticipate home-going oxygen need. 4. Encourage incentive spirometer use and mobilize patient as tolerated. 5. Please ensure that the patient has a follow-up appointment scheduled with our nurse practitioner in the pulmonary medicine clinic within 2 weeks of his discharge. IMPRESSIONS: 1. Acute hypoxic respiratory failure secondary to Haemophilus influenza pneumonia Patient with a patchy dense infiltrate noted on the right-hand side. The patient is clinically improving with antibiotics, steroids and bronchodilators. Continue to wean supplemental oxygen as tolerated. Perform walking oximetry study prior to consideration for discharge from the hospital. Recommend completing a 7 day treatment course of antibiotics along with a prednisone taper at the time he is discharged. He should follow-up in the pulmonary medicine clinic within 2 weeks. 2. Acute kidney injury IMPROVING > patient previously with normal renal function in May. Presentation creatinine of 1.44, likely secondary to prerenal etiology. 3. Persistent A. fib/coronary artery disease status post CABG/supratherapeutic INR Patient with supratherapeutic INR at this time. Unclear if this is related to the acute illness versus Coumadin dosing. 4. Diabetes mellitus type 2 Continue sliding-scale insulin coverage. 5. Agitation/advanced age/hypertension/hypercholesterolemia/BPH Complicates care, management, recovery and prognosis. Patient is very clear that he is a DNR Comfort Care arrest without intubation. Antihypertensive medications can be continued. This note was generated with [employer] dictation software. It may contain incorrect words, spelling, and punctuation that were not noted in checking the note before signing. Code Visit Inpatient E&M: 66958 Subs Hosp L2
[2017-10-30 11:51] LABS: Bedside Glucose 328 mg/dL (70-110)
--- NOTE | 2017-10-30 12:02 | CASEMGMT ---
Per Barbara BALLARD, pt qualifies for home oxygen at this time. Referral faxed to [facility] at this time per pt request. This RN CM to room to speak with pt/ regarding therapy recommendation for further skilled therapy and per pt/, pt would not be homebound and would prefer outpt therapy at this time. Referral faxed to [email or web address] at this time. Pt/ updated on all at this time and voice understanding. Pt is awaiting delivery of oxygen for discharge at this time. Roger BALLARD CM
--- NOTE | 2017-10-30 12:56 | DCINST_ITS ---
- Discharge Diagnoses Current Active Problems: Current Active and Chronic Problems Severe sepsis (Acute) Supratherapeutic INR (Acute) Persistent atrial fibrillation (Chronic) Acute respiratory failure with hypoxia (Acute) Pneumonia (Acute) Coronary artery disease (Acute) You will use the following diet at home:: Calorie/Carbohydrate Controlled ( specify 1200, 1400, etc) - 1800 colt / day, Cardiac Your food should be the consistency of: Regular Your liquids should be the consistency of: Regular/Thin Discharge Activity: Return to Normal Activity Additional Instructions: Continue physical therapy as an outpatient. You may need her INR checked daily until it returns to a safe level. Do not restart warfarin until you are advised, when your INR returns to a safe level. Allergies/Adverse Reactions: Allergies metoprolol [From Toprol XL] Allergy (Verified 10/25/17 14:11) Other simvastatin Allergy (Verified 10/25/17 14:11) Other spironolactone Allergy (Verified 10/25/17 14:11) Other morphine Adverse Reaction (Verified 10/26/17 09:19) Other confusion, crazy sulfamethoxazole [From Bactrim] Adverse Reaction (Verified 10/25/17 14:11) Unknown trimethoprim [From Bactrim] Adverse Reaction (Verified 10/25/17 14:11) Unknown Medications to take at Discharge Atorvastatin Calcium [Lipitor] 80 mg PO QHS 04/26/16 Furosemide [Lasix] 40 mg PO BID 04/26/16 Insulin Lispro [Humalog Kwikpen] 16 unit SQ TID 04/26/16 Labetalol [Trandate (Beta Fab)] 100 mg PO BID 04/26/16 Insulin Glargine [Lantus SoloStar Pen] 58 units SQ QHS 10/25/17 Albuterol Inhaler [Ventolin Hfa] 2 puff INHALATION Q4H PRN PRN 10/26/17 Amlodipine [Norvasc] 5 mg PO DAILY 10/26/17 Aspirin [Aspirin, Baby] 81 mg PO DAILY@0800 10/26/17 Cyanocobalamin (Vitamin B-12) [Vitamin B-12] 1,000 mcg PO DAILY 10/26/17 Glimepiride [Amaryl] 8 mg PO BREAKFAST 10/26/17 Indomethacin [Indocin] 25 mg PO BIDCM 10/26/17 Losartan Potassium 50 mg PO DAILY 10/26/17 Metformin HCl [Glucophage] 1,000 mg PO BIDCM 10/26/17 Polyethylene Glycol 3350 [Miralax] 17 gm PO DAILY 10/26/17 Potassium Chloride 10 meq PO BID 10/26/17 Senna/Docusate Sodium [Senokot-S] 1 tablet PO BID PRN PRN 10/26/17 Sertraline HCl [Zoloft] 50 mg PO DAILY 10/26/17 Tamsulosin HCl [Flomax] 0.4 mg PO DAILY 10/26/17 Triamcinolone 0.1% Cream [Kenalog] 1 applic TOPICAL BID 10/26/17 Zolpidem Tartrate [Ambien] 10 mg PO QHS PRN PRN 10/26/17 Prednisone 10 mg PO DAILY #18 tab 10/30/17 Warfarin Sodium 4 mg PO DAILY #0 10/30/17 Warfarin Sodium 5 mg PO DAILY #0 10/30/17 levoFLOXacin tablet [Levaquin tablet] 750 mg PO DAILY@0600 #1 tab 10/30/17 The following prescriptions were given: Prednisone 10 mg PO DAILY #18 tab levoFLOXacin tablet [Levaquin tablet] 750 mg PO DAILY@0600 #1 tab Primary Care Physician: Kan Chavez MD [Primary Care Provider] - Please follow up with your Primary Care Physician in: 1 week Test Results: Test results from this visit will be discussed in further detail at your follow- up appointment, if applicable. Please Follow Up With: Julio Cesar Vargas MD When: 1-2 weeks Proposed Discharge Date: 10/30/17
--- NOTE | 2017-10-30 14:26 | DS.PCM_ITS ---
Discharge Date and Diagnosis - Problem List Patient Problems: Active and Suspected Problems Severe sepsis (Acute) Supratherapeutic INR (Acute) Acute respiratory failure with hypoxia (Acute) Pneumonia (Acute) Coronary artery disease (Acute) Date of Admission: 10/25/17 Date of Discharge: 10/30/17 - Primary Discharge Diagnosis Active and Suspected Problems Severe sepsis (Acute) 2/2 BL CAP 2/2 Haemophilus influenza Acute hypoxic respiratory failure secondary to sepsis and pneumonia Supratherapeutic INR secondary to antibiotic administration Acute kidney injury secondary to sepsis Chronic atrial fibrillation Coronary artery disease Type 2 diabetes mellitus Hypertension Hyperlipidemia BPH - Secondary Discharge Diagnosis Chronic Problems Persistent atrial fibrillation (Chronic) 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 Bilateral pneumonic infiltrates should be ruled out. Underlying metastasis cannot be excluded. Radiographic follow-up is recommended. RAD/Chest 1 View (Portable) IMPRESSION: Resolving bilateral pneumonia. Consultations: Sam/Rd-pulmonology Operations: None Procedures: None Summary of Care Provided: Physical exam on day of discharge: General: Resting comfortably NAD Psych: A/Ox3 normal affect HEENT: PEARRLA AT NC Neck: Supple NT CV: RRR no m/t/r/g/h Resp: Diffuse wheezing throughout expiration. Abd: [id number] Soft NT no guarding or rigidity Ext: DP2+= no edema Skin: W/D normal turgor, he has chronic venous stasis changes in his lower extremities with hyperpigmentation Lymph/Heme: No active bleeding or adenopathy Neuro: CN2-12 intact Hospital course: The patient is a 82 year old M with a history of CAD, chronic atrial fibrillation, hypertension, type 2 diabetes, hyperlipidemia, former smoker, who presented to the emergency room with increased shortness of breath over 2 or 3 days. He is found in the emergency department to have oxygen saturation in the 70s without supplemental oxygen increased cough and hemoptysis with a supratherapeutic INR. He is placed on BiPAP. He appeared to be in acute severe sepsis secondary to bilateral pneumonia as evidenced by elevated lactic acid, tachypnea, tachycardia severe dyspnea requiring BiPAP, with acute hypoxic respiratory failure. His chest xray showed bilateral infiltrates. He was admitted to a monitored bed and started on IV azithromycin and Rocephin with IV fluids. Pulmonology was consulted. He was also started on prednisone. He stabilized and was transitioned to Levaquin. His sputum culture demonstrated Haemophilus influenza. His blood cultures were negative, strep and Legionella urinary antigens were negative. A follow-up chest x-ray demonstrated improvement in the pneumonia. He eventually was able to be weaned down on oxygen and taken off BiPAP. His symptoms dramatically improved however he continued to desaturate on room air without supplemental oxygen into the low 80s -83%. He will continue to require oxygen going forward at least temporarily while his pneumonia improves. He may have some underlying pulmonary disease but has no prior diagnosis. He will continue an albuterol inhaler at home, complete 1 more day of Levaquin for a total of 7 days of therapy, and complete a steroid taper. We will defer further aerosol therapy until the patient is evaluated by pulmonology as an outpatient and has PFT tests. He was discharged home in stable condition. He did have some debility while here however he was agreeable to outpatient physical therapy which was ordered. This patient was seen by Iker Sahu PA-C under the supervision of Doctor Matteo. [] Discharge Diet: Low fat/ Low Cholesterol, 1800 Calorie Control Diet, 2000 mg Sodium Diet Discharge Activity: Return to Normal Activity Home Medications: Medications to take at Discharge Atorvastatin Calcium [Lipitor] 80 mg PO QHS 04/26/16 Furosemide [Lasix] 40 mg PO BID 04/26/16 Insulin Lispro [Humalog Kwikpen] 16 unit SQ TID 04/26/16 Labetalol [Trandate (Beta Fab)] 100 mg PO BID 04/26/16 Insulin Glargine [Lantus SoloStar Pen] 58 units SQ QHS 10/25/17 Albuterol Inhaler [Ventolin Hfa] 2 puff INHALATION Q4H PRN PRN 10/26/17 Amlodipine [Norvasc] 5 mg PO DAILY 10/26/17 Aspirin [Aspirin, Baby] 81 mg PO DAILY@0800 10/26/17 Cyanocobalamin (Vitamin B-12) [Vitamin B-12] 1,000 mcg PO DAILY 10/26/17 Glimepiride [Amaryl] 8 mg PO BREAKFAST 10/26/17 Indomethacin [Indocin] 25 mg PO BIDCM 10/26/17 Losartan Potassium 50 mg PO DAILY 10/26/17 Metformin HCl [Glucophage] 1,000 mg PO BIDCM 10/26/17 Polyethylene Glycol 3350 [Miralax] 17 gm PO DAILY 10/26/17 Potassium Chloride 10 meq PO BID 10/26/17 Senna/Docusate Sodium [Senokot-S] 1 tablet PO BID PRN PRN 10/26/17 Sertraline HCl [Zoloft] 50 mg PO DAILY 10/26/17 Tamsulosin HCl [Flomax] 0.4 mg PO DAILY 10/26/17 Triamcinolone 0.1% Cream [Kenalog] 1 applic TOPICAL BID 10/26/17 Zolpidem Tartrate [Ambien] 10 mg PO QHS PRN PRN 10/26/17 Prednisone 10 mg PO DAILY #18 tab 10/30/17 Warfarin Sodium 4 mg PO DAILY #0 10/30/17 Warfarin Sodium 5 mg PO DAILY #0 10/30/17 levoFLOXacin tablet [Levaquin tablet] 750 mg PO DAILY@0600 #1 tab 10/30/17 Following Prescrptions Were Given to Patient: Prednisone 10 mg PO DAILY #18 tab levoFLOXacin tablet [Levaquin tablet] 750 mg PO DAILY@0600 #1 tab Primary Care Physician: Kan Chavez MD [Primary Care Provider] - Please follow up with your Primary Care Physician in: 1 week Please Follow Up With: Michelle Leyva NP When: 1-2 weeks Please Follow Up With: Omid Ordonez MD Additional Instructions: Continue outpatient physical therapy. Use oxygen as prescribed. Disposition: Home Minutes spent on discharge:: 35 Patient Condition:: Stable Medical Necessity - Tobacco Use Smoking Status: Former smoker Meaningful Use Info Meaningful Use Diagnoses (Choose all that apply): None applicable
--- NOTE | 2017-10-30 14:39 | CASEMGMT ---
Face to face obtained for home oxygen at this time and faxed to [facility]. Call to Cheyenne at [facility] and she states that she will verify all needed paperwork and get a hazmat cdl driver over with carmela galloway. Barbara BALLARD aware, voices understanding. Roger BALLARD CM
[2017-10-31 09:43] LABS: Pathologist Review Reviewed
[2017-10-31 09:44] LABS: Pathologist Review Reviewed
--- NOTE | 2017-10-31 16:38 | CASEMGMT ---
RN CM Discharge F/U Phone Call LACE: 12 Strata: 4 Discharge date: 10/30/17 Call date: 10/31/17 Call time: [id number] Duration: 2 minutes Admission dx: Community acquired multi-lobar pneumonia Pt states has been doing 'great' since discharge. Pt is very short but polite with answers and basically states is doing fine and no concerns. This RN CM is unable to ask any further questions regarding medications, instructions, f/u, etc. at this time. SStaten RN CM
== END 2017-10-30 15:47 | disposition home or self-care (01) | DRG 871 ==
LOC: ED 14:44 → ICU 17:51 → PCU 10-29 10:37
PROVIDERS: Internal Medicine; Internal Medicine Critical Care Medicine; Admitting Provider Hospitalist; Emergency Provider Emergency Medicine; Family Provider Internal Medicine; PCP Internal Medicine; Visit Provider Family Medicine
DX: A41.9 Sepsis, unspecified organism (principal); J14 Pneumonia due to Hemophilus influenzae; J96.01 Acute respiratory failure with hypoxia; N17.9 Acute kidney failure, unspecified; J44.1 Chronic obstructive pulmonary disease with (acute) exacerbation; J44.0 Chronic obstructive pulmonary disease with (acute) lower respiratory infection; R65.20 Severe sepsis without septic shock; I48.2 Chronic atrial fibrillation; R79.1 Abnormal coagulation profile; I10 Essential (primary) hypertension; E78.5 Hyperlipidemia, unspecified; E66.9 Obesity, unspecified; N40.0 Benign prostatic hyperplasia without lower urinary tract symptoms; I25.10 Atherosclerotic heart disease of native coronary artery without angina pectoris; Z87.891 Personal history of nicotine dependence; Z95.0 Presence of cardiac pacemaker; Z68.33 Body mass index [BMI] 33.0-33.9, adult; Z95.5 Presence of coronary angioplasty implant and graft; Z95.1 Presence of aortocoronary bypass graft; Z66 Do not resuscitate; E11.9 Type 2 diabetes mellitus without complications; Z79.4 Long term (current) use of insulin; Z95.2 Presence of prosthetic heart valve; Z79.01 Long term (current) use of anticoagulants
CPT/HCPCS: 36415; 71045; 80048; 82962; 83605; 83735; 83880; 84100; 84484; 85025; 85027; 85610; 86900; 87040; 87070; 87077; 87205; 87449; 87641; 93005; 94002; 94003; 94640; 94668; 97162; 97166; 97530; 97535; 99285; J7030; J7050; P9017; A4216; J2405

== ENCOUNTER → 2017-12-08 16:33 | Outpatient (CLI) | payer MEDICARE, OTHER, SELFPAY ==
[2017-12-08 16:57] LABS: International Normalized Ratio 1.1; Prothrombin Time (Protime)PT. 13.7 SECONDS (11.7-14.9)
== END ==
PROVIDERS: PCP Family Medicine; Visit Provider Family Medicine
DX: I48.2 Chronic atrial fibrillation (principal); I25.2 Old myocardial infarction; Z79.01 Long term (current) use of anticoagulants
CPT/HCPCS: 85610

== ENCOUNTER → 2017-12-11 10:22 | Outpatient (CLI) | payer MEDICARE, OTHER, SELFPAY ==
[2017-12-11 10:49] LABS: Prothrombin Time (Protime)PT. 50.3 SECONDS (11.7-14.9)
[2017-12-11 10:53] LABS: International Normalized Ratio 5.5
== END ==
PROVIDERS: Family Provider Family Medicine; PCP Family Medicine; Visit Provider Family Medicine
DX: I21.9 Acute myocardial infarction, unspecified (principal); I48.2 Chronic atrial fibrillation; Z79.01 Long term (current) use of anticoagulants
CPT/HCPCS: 85610

== ENCOUNTER → 2018-01-30 14:59 | Outpatient (CLI) | payer MEDICARE, OTHER, SELFPAY ==
[2018-01-30 15:29] LABS: Prothrombin Time (Protime)PT. 40.1 SECONDS (11.7-14.9)
[2018-01-30 15:44] LABS: International Normalized Ratio 4.1
== END ==
PROVIDERS: Family Provider Family Medicine; PCP Family Medicine; Referring Provider Family Medicine; Visit Provider Family Medicine
DX: I48.2 Chronic atrial fibrillation (principal); I25.2 Old myocardial infarction; Z79.01 Long term (current) use of anticoagulants
CPT/HCPCS: 85610

== ENCOUNTER → 2018-02-06 15:30 | Outpatient (CLI) | payer MEDICARE, OTHER, SELFPAY ==
[2018-02-06 16:15] LABS: Prothrombin Time (Protime)PT. 35.1 SECONDS (11.7-14.9)
[2018-02-06 16:31] LABS: International Normalized Ratio 3.5
== END ==
PROVIDERS: Family Provider Family Medicine; PCP Family Medicine; Referring Provider Family Medicine; Visit Provider Family Medicine
DX: I48.2 Chronic atrial fibrillation (principal); I25.2 Old myocardial infarction; Z79.01 Long term (current) use of anticoagulants
CPT/HCPCS: 85610

== ENCOUNTER → 2018-02-22 09:41 | Outpatient (CLI) | payer MEDICARE, OTHER, SELFPAY ==
--- NOTE | 2018-02-23 08:24 | PFT ---
INTRODUCTION: The patient is an 83-year-old male that presents for pulmonary function testing secondary to a diagnosis of pneumonia. Respiratory therapy reports good patient effort. Bronchodilators were used during testing. INTERPRETATION: Forced expiration spirometry demonstrates the presence of a moderate large airways obstructive ventilatory defect. There was no significant response to aerosolized bronchodilators. Spirograms are of good quality and do not plateau indicating slow emptying of the lungs. Body plethysmography was performed and reveals an elevated RV to 138% of predicted, indicative of underlying air trapping. Diffusing capacity by single breath CO is within normal limits at 83% of predicted. IMPRESSION: These pulmonary function studies demonstrate the presence of an irreversible moderate large airways obstructive ventilatory defect with associated air trapping and preserved diffusing capacity. There are no previous pulmonary function studies available for comparison.
== END ==
PROVIDERS: Family Provider Family Medicine; PCP Family Medicine; Referring Provider Nurse Practitioner Acute Care; Visit Provider Nurse Practitioner Acute Care
DX: J18.9 Pneumonia, unspecified organism (principal)
CPT/HCPCS: 94060; 94726; 94729

== ENCOUNTER → 2018-02-23 12:47 | Outpatient (CLI) | payer MEDICARE, SELFPAY ==
[2018-02-23 13:11] LABS: International Normalized Ratio 2.3; Prothrombin Time (Protime)PT. 25.1 SECONDS (11.7-14.9)
== END ==
PROVIDERS: Family Provider Family Medicine; PCP Family Medicine; Referring Provider Family Medicine; Visit Provider Family Medicine
DX: I48.2 Chronic atrial fibrillation (principal); I25.2 Old myocardial infarction; Z79.01 Long term (current) use of anticoagulants
CPT/HCPCS: 85610

== ENCOUNTER → 2018-07-27 10:08 | Outpatient (CLI) | payer MEDICARE, OTHER, SELFPAY ==
[2018-06-19 09:35] VITALS: BMI 30.4
[2018-07-27 10:42] LABS: Prothrombin Time (Protime)PT. 30.9 SECONDS (11.7-14.9)
== END ==
PROVIDERS: Family Provider Family Medicine; PCP Family Medicine; Referring Provider Family Medicine; Visit Provider Family Medicine
DX: I48.2 Chronic atrial fibrillation (principal)
CPT/HCPCS: 85610

== ENCOUNTER → 2018-10-23 12:00 | Outpatient (CLI) | payer MEDICARE, OTHER, SELFPAY ==
[2018-06-19 09:35] VITALS: BMI 30.4
[2018-10-23 12:27] LABS: International Normalized Ratio 10.5
[2018-10-23 12:35] LABS: Prothrombin Time (Protime)PT. 85.2 SECONDS (11.7-14.9)
== END ==
PROVIDERS: Family Provider Family Medicine; PCP Family Medicine; Referring Provider Family Medicine; Visit Provider Family Medicine
DX: I48.2 Chronic atrial fibrillation (principal)
CPT/HCPCS: 85610

== ENCOUNTER 2018-10-23 13:27 | Emergency (ER) | payer MEDICARE, OTHER, SELFPAY ==
[2018-06-19 09:35] VITALS: BMI 30.4
[2018-10-23 13:29] VITALS: BP 124/53; PULSE 60; RESP 16; TEMP 36.3; O2SAT 98; BMI 33.0
[2018-10-23 13:53] LABS: Prothrombin Time (Protime)PT. 82.4 SECONDS (11.7-14.9)
[2018-10-23 13:57] LABS: International Normalized Ratio 10.1
--- NOTE | 2018-10-23 14:24 | ED.DCSUM_ITS ---
- ER Visit Summary Date of Service: 10/23/18 Chief Complaint: Elevated INR History of Present Illness: The patient is a 83 M states that he was told to come the emergency department for an elevated INR. Reportedly at 10.5. He is on Coumadin for atrial fibrillation. He states he is also had valve replaced. He denies any known bleeding. He denies black stools. Physical Examination: Afebrile vital signs stable Gen: Well-nourished well-developed Head: Normocephalic atraumatic Eyes: Perrl EOMI ENT: TMs clear no rhinorrhea moist mucous membranes Neck: Supple no lymphadenopathy no JVD nontender CVS: Regular rate rhythm 2 out of 6 systolic murmur Respiratory: No distress clear to auscultation bilaterally chest nontender Abdomen: Soft nontender nondistended normal bowel sounds no masses Back: Nontender Extremity: Nontender no edema Skin: Normal color no rash Neuro: alert orientated ?3 CN II-XII intact normal strength sensation Psych: Normal affect normal mood Test Results: INR returns at 10.1. Emergency Department Course and Treatment: In accordance with chest guidelines patient received oral vitamin K. Will be discharged home with instructions to hold his INR for at least 2 days and have his INR rechecked on . Impression: 1. Supratherapeutic INR without bleeding This note was generated with [employer] dictation software. It may contain incorrect words, spelling, and punctuation that were not noted in review of the chart prior to signing ED Disposition - Plan for ED Patient: Disposition: Home or Assisted Living Instructions: International Normalized Ratio Referrals: Omid Ordonez MD [Primary Care Provider] - (on for repeat INR test) Additional Instructions: I would not take your Coumadin dose or Monday night. You need to have your INR rechecked on . This will allow time for results to be called to you before the weekend for further care.
[2018-10-23] MEDS: Phytonadione (Vit K) 10 MG/ML Ampul 2.5 MG PO (14:39)
== END 2018-10-23 14:49 | disposition home or self-care (01) ==
PROVIDERS: Emergency Provider Emergency Medicine; Family Provider Family Medicine; PCP Family Medicine
DX: I48.2 Chronic atrial fibrillation (principal); Z79.01 Long term (current) use of anticoagulants; I10 Essential (primary) hypertension; E11.9 Type 2 diabetes mellitus without complications; Z79.4 Long term (current) use of insulin; Z79.82 Long term (current) use of aspirin; Z79.899 Other long term (current) drug therapy; Z87.891 Personal history of nicotine dependence
CPT/HCPCS: 85610; 99283; A4216

== ENCOUNTER → 2018-10-25 07:50 | Outpatient (CLI) | payer MEDICARE, OTHER, SELFPAY ==
[2018-10-23 13:29] VITALS: BMI 33.0
[2018-10-25 10:28] LABS: International Normalized Ratio 2.2; Prothrombin Time (Protime)PT. 24.4 SECONDS (11.7-14.9)
== END ==
PROVIDERS: Family Provider Family Medicine; PCP Family Medicine; Referring Provider Family Medicine; Visit Provider Family Medicine
DX: Z51.81 Encounter for therapeutic drug level monitoring (principal); Z79.01 Long term (current) use of anticoagulants
CPT/HCPCS: 85610

== ENCOUNTER → 2018-10-29 | Outpatient (CLI) | payer MEDICARE, OTHER, SELFPAY ==
[2018-10-23 13:29] VITALS: BMI 33.0
[2018-10-29 13:00] LABS: International Normalized Ratio 2.4
== END | disposition home or self-care (01) ==
LOC: LABSPEC 12:21
PROVIDERS: Family Provider Family Medicine; PCP Family Medicine; Referring Provider Family Medicine; Visit Provider Family Medicine
DX: I48.2 Chronic atrial fibrillation (principal)
CPT/HCPCS: 85610

== ENCOUNTER → 2018-11-05 09:41 | Outpatient (CLI) | payer MEDICARE, OTHER, SELFPAY ==
[2018-10-23 13:29] VITALS: BMI 33.0
[2018-11-05 10:19] LABS: International Normalized Ratio 1.7; Prothrombin Time (Protime)PT. 19.8 SECONDS (11.7-14.9)
== END ==
PROVIDERS: Family Provider Family Medicine; PCP Family Medicine; Referring Provider Family Medicine; Visit Provider Family Medicine
DX: I48.2 Chronic atrial fibrillation (principal)
CPT/HCPCS: 85610

== ENCOUNTER → 2018-12-21 13:26 | Outpatient (CLI) | payer MEDICARE, OTHER, SELFPAY ==
[2018-12-21 13:58] LABS: International Normalized Ratio 2.3; Prothrombin Time (Protime)PT. 25.2 SECONDS (11.7-14.9)
== END ==
PROVIDERS: Family Provider Family Medicine; PCP Family Medicine; Referring Provider Family Medicine; Visit Provider Family Medicine
DX: I48.2 Chronic atrial fibrillation (principal)
CPT/HCPCS: 85610

== ENCOUNTER → 2019-02-22 15:19 | Outpatient (CLI) | payer MEDICARE, OTHER, SELFPAY ==
[2018-12-24 10:33] VITALS: BMI 33.0
[2019-02-22 15:45] LABS: International Normalized Ratio 3.4; Prothrombin Time (Protime)PT. 34.3 SECONDS (11.7-14.9)
[2019-02-22 15:46] LABS: ALB/GLOB Ratio 1.2 RATIO (0.9-2.4); AST(SGOT) 28 U/L (15-37); Alanine Aminotransfer ALT/SGPT 31 U/L (16-61); Albumin, Serum 3.8 g/dL (3.2-5.0); Alkaline Phosphatase 142 U/L (45-117); Anion Gap 9 (5-15); BUN 27 mg/dL (7-18); CPK Total, Creatine Kinase 278 U/L (39-308); Calcium,Total 8.1 mg/dL (8.5-10.1); Chloride 104 mmol/L (98-107); Creatinine, Serum 1.23 mg/dL (0.70-1.30); EST Glomerular Filtration Rate 60 mL/min (>60); Est Glom Filt Rate - Afr Amer 72 mL/min (>60); Globulin 3.1 g/dL (2.2-4.2); Glucose 254 mg/dL (74-106); Potassium 4.3 mmol/L (3.5-5.1); Protein, Total 6.9 g/dL (6.4-8.2); Sodium Level 140 mmol/L (136-145)
== END ==
PROVIDERS: Family Provider Family Medicine; PCP Family Medicine; Referring Provider Family Medicine; Visit Provider Family Medicine
DX: T14.8XXA Other injury of unspecified body region, initial encounter (principal); X58.XXXA Exposure to other specified factors, initial encounter; M79.651 Pain in right thigh
CPT/HCPCS: 80053; 82550; 85610

== ENCOUNTER → 2019-02-26 12:09 | Outpatient (CLI) | payer MEDICARE, OTHER, SELFPAY ==
[2018-12-24 10:33] VITALS: BMI 33.0
[2019-02-26 12:49] LABS: International Normalized Ratio 2.4; Prothrombin Time (Protime)PT. 26.4 SECONDS (11.7-14.9)
== END ==
PROVIDERS: Family Provider Family Medicine; PCP Family Medicine; Referring Provider Family Medicine; Visit Provider Family Medicine
DX: I48.20 Chronic atrial fibrillation, unspecified (principal)
CPT/HCPCS: 85610

== ENCOUNTER 2019-09-26 07:10 | Inpatient (IN) | payer MEDICARE, OTHER, SELFPAY ==
[2018-12-24 10:33] VITALS: BMI 33.0
[2019-09-26] VITALS (16 sets, daily range): BP systolic 132–188; BP diastolic 45–121; PULSE 60–72; RESP 12–28; TEMP 35–36.9; O2SAT 93–100; BMI 32.1; BMI 32.8; BMI 32.9
--- NOTE | 2019-09-26 07:16 | RAD_ITS ---
STUDY: X-RAY CHEST REASON FOR EXAM: Male, 84 years old. SOB TECHNIQUE: Single AP portable view of the chest. COMPARISON: Comparison is made with prior examination dated October 30, 2017. FINDINGS: EKG electrodes are seen. There is evidence of blunting of both costophrenic angles suggest small bilateral pleural effusions. Vascular congestion and increased interstitial markings suggests a mild degree of CHF. Sternal cerclage wires are present from a prior sternotomy. Prior mitral valve prosthesis. Mild cardiomegaly. Normal mediastinum and amauri. Normal visualized pulmonary arteries. There is atherosclerotic calcification of the aortic arch with tortuosity. There are diffuse degenerative changes of the visualized thoracic spine. There is degenerative osteoarthritis of the bilateral shoulders. There is no demonstrated abnormality of the visualized soft tissue structures of the upper abdomen. RAD/Chest 1 View (Portable) IMPRESSION: Cardiomegaly and mild degree of CHF with blunting of both costophrenic angles. Electronically Signed: Paul Nair, at 8:33 EDT , Service support ,
--- NOTE | 2019-09-26 07:16 | EKG12_ITS ---
Test Reason : SOB Blood Pressure : / mmHG Vent. Rate : 061 BPM Atrial Rate : 416 BPM P-R Int : 000 ms QRS Dur : 144 ms QT Int : 534 ms P-R-T Axes : 000 104 044 degrees QTc Int : 537 ms Atrial fibrillation with frequent ventricular-paced complexes and with premature ventricular or aberr antly conducted complexes Non-specific intra-ventricular conduction block Anterolateral infarct , age undetermined Abnormal ECG Confirmed by TARYN LUNA, MAURY ([id number]), production editor QUINCY GUY ([id number]) on 09/30/2019 2:01:02 PM Referred By: ALEKSANDRA Confirmed By:KT CENTENO MD
--- NOTE | 2019-09-26 07:22 | ED.DCSUM_ITS ---
History of Present Illness Chief Complaint: Shortness of Breath Informant: Patient, [employer] Onset: Month(s) Current Severity: Mild Maximum Severity: Moderate Narrative: Patient presents with paramedics complaining he has been short of breath for over, the shortness of breath intensified he was brought in by EMS this morning. He indicates he was admitted [facility] for the shortness of breath 1 week ago he was treated he was released he notes no improvement he was tested for coronavirus tested negative, he has had no exposures to coronavirus, Overall he is a very poor historian he does not recall much of his history he does recall having possibly an valve cardiac valve replacement has a pacemaker possibly a CABG but he does not recall he denies COPD [place] or PE, denies lower extremity edema fever chronic cough nonproductive he does not know his med list does not believe he sees any specialists Just reports persistent shortness of breath with a slight nonproductive cough that is been going on for months he denies using inhalers Past Medical History - Allergies and Home Meds Allergies/Adverse Reactions: Allergies metoprolol [From Toprol XL] Allergy (Verified 12/24/18 10:32) Other simvastatin Allergy (Verified 12/24/18 10:32) Other spironolactone Allergy (Verified 12/24/18 10:32) Other morphine Adverse Reaction (Verified 12/24/18 10:32) Other confusion, crazy sulfamethoxazole [From Bactrim] Adverse Reaction (Verified 12/24/18 10:32) Unknown trimethoprim [From Bactrim] Adverse Reaction (Verified 12/24/18 10:32) Unknown Primary Care Physician: Omid Ordonez MD [Primary Care Provider] - Past Medical History: - - Per other information sources he has extensive past history of cardiac valve replacement pacemaker placement chronic shortness of breath diabetes multiple other medical problems see the chart Surgical History: - - Heart valve replacement. Smoking Status: Unknown if ever smoked Review of Systems General: Denies: Chills, Fever, Sweats Eyes: Denies: Visual changes - bilaterally, Diplopia ENT: Denies: Rhinorrhea, Sore throat Cardiovascular: Denies: Chest pain, Palpitations Respiratory: Reports: Dyspnea, Cough, Dyspnea on exertion Gastrointestinal: Denies: Abdominal pain, Nausea, Vomiting, Diarrhea, Melena, Hematochezia Genitourinary: Denies: Dysuria, Hematuria, Frequency Musculoskeletal: Denies: Back pain, Extremity Pain Skin: Denies: Rash, Wounds Neurological: Denies: Headache, Weakness, Numbness Physical Exam Vital Signs/Narrative: Vital Signs Temp Pulse Resp BP Pulse Ox 09/26/19 07:15 100 09/26/19 07:11 95.0 F L 72 23 H 153/121 H 99 General: Well nourished, Well developed, No Acute Distress Head: Normocephalic, Atraumatic Eyes: Perrl, EOMI ENT: Moist mucous membranes, No rhinorrhea Neck: Supple, Nontender Cardiovascular: Regular rate, Regular rhythm, No murmurs Respiratory: Chest nontender, Rhonchi, Decreased Air Movement, Retractions Abdomen: Soft, Nontender, Nondistended, Normal bowel sounds Back: Nontender, Normal Inspection Extremities: Nontender, No edema Skin: Normal color, No rash Neurological: Alert, Oriented x3, Cranial nerves II-XII grossly intact, Normal Strength, Normal Sensation Psychological: Normal affect, Normal Mood Diagnostic/Tx/Re-eval - Medical Decision Making He speaking in phrases his vital signs are generally unremarkable his blood pressure is within normal range his pulse ox is 99% on nonrebreather he is having trouble keeping the nonrebreather on, he speaking in phrases, he does not recall being intubated during his last admission or ever, other sources of data review history of severe sepsis persistent atrial fibrillation acute respiratory failure with hypoxemia pneumonia CAD acute ulcers of the lower extremities and diabetes Given all the above he will undergo resuscitation ED evaluation noninvasive pulmonary support Patient is feeling better on noninvasive mask support, his blood gas shows 7.4 PCO2 about 40 PO2 139, EKG shows wide complex irregularity no acute injury pattern not significantly different from older EKG rate about 60 poor baseline BNP about 700 troponin negative hemoglobin around 9 please see the labs for full details, X-ray shows signs of congestive heart failure he was treated treated, he was treated with Lasix he is feeling better he is now able speak in more full sentences is able lay back in the bed he is remained on the non-invasive ventilation as he is feeling better, he does not wish to be readmitted to [facility] would prefer to be admitted to this facility Spoke with the hospitalist and will arrange for admission for the management of all the above Admit stable critical care time about 30 minutes Final impression respiratory failure, CHF, history of cardiac valve replacement, pacemaker multiple medical problems ED Disposition - Plan for ED Patient: Diagnosis: Acute respiratory failure with hypoxia, Persistent atrial fibrillation, Acute CHF Referrals: Omid Ordonez MD [Primary Care Provider] -
[2019-09-26] MEDS: Ipratropium/Albuterol Sulfate 3 ML AMPUL.NEB INHALATION (07:30)
[2019-09-26 07:37] LABS: Absolute Lymphocyte Count 1.15 X10^3/uL (0.83-4.51); Absolute Neutrophil Count 8.2 X10^3/uL (2.0-7.7); Basophil# 0.06 X10^3/uL; Basophil% 0.6 % (0-1); Eosinophil# 0.25 X10^3/uL; Eosinophils% 2.4 % (0-5); Hematocrit 31.8 % (40-54); Hemoglobin 9.1 g/dL (13.0-16.5); Lymphocyte # 1.15 X10^3/ul (4.0); Lymphocyte % 11.1 % (19-41); Mean Corp Hgb Conc 28.6 g/dL (32-36); Mean Corpuscular Hgb 27.1 pg (27.0-32.0); Mean Corpuscular Volume 94.6 fL (80-94); Mean Platelet Vol. 9.7 fl (6.2-12.0); Monocyte# 0.64 X10^3/uL; Monocyte% 6.2 % (0-10); NRBC Flagged by Analyzer 0 % (0-5); Neutrophil # 8.16 X10^3/uL (2.7-7.7); Platelet Count 360 K/mm3 (150-450); RBC Distribution Width CV 18.8 % (11.6-14.6); RBC Distribution Width SD 64.6 fl (35.1-43.9); Red Blood Count 3.36 M/mm3 (4.6-6.2); White Blood Count 10.3 K/mm3 (4.4-11.0)
[2019-09-26] MEDS: HYDROmorphone 0.5 MG/0.5 ML SYRINGE IV (07:43)
[2019-09-26 07:54] LABS: Anion Gap 6 (5-15); BUN 28 mg/dL (7-18); BUN/Creat Ratio 23.1 RATIO (10-20); Calcium,Total 8.5 mg/dL (8.5-10.1); Chloride 110 mmol/L (98-107); Creatinine, Serum 1.21 mg/dL (0.70-1.30); EST Glomerular Filtration Rate 61 mL/min (>60); Est Glom Filt Rate - Afr Amer 74 mL/min (>60); Estimated Creatinine Clearance 54.72 ml/min; Glucose 192 mg/dL (74-106); Potassium 5.2 mmol/L (3.5-5.1); Sodium Level 139 mmol/L (136-145)
[2019-09-26 08:01] LABS: International Normalized Ratio 1.9; Prothrombin Time (Protime)PT. 21.4 SECONDS (11.7-14.9)
[2019-09-26 08:31] LABS: Base Excess -3 mmol/L (-2 to +2); Bicarbonate 22.3 mmol/L (22-26); PO2 139 mmHG (75-100); SO2 99 % (95-99); Total Carbon Dioxide 23 mmol/L; pCO2 37.8 mmHg (35-45); pH 7.38 (7.35-7.45)
[2019-09-26 08:35] LABS: BNP,B-Type NATRIURETIC PEPTIDE 668.1 pg/mL (0-100)
[2019-09-26] MEDS: Furosemide 40 MG/4 ML Vial IV ×3 (08:43→21:31)
[2019-09-26 09:44] LABS: Blood Gas Specimen Type ART; SITE R BRACHIAL
[2019-09-26 09:45] LABS: EPAP 8; FI02 40; IPAP 12; O2 Delivery Device Bi Pap; Time Given 751
--- NOTE | 2019-09-26 10:12 | PCM.HP.STD ---
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) Venous (peripheral) insufficiency (Chronic) Medical History: Medical History (Last Reviewed 12/24/18 @ 10:33 by Christy Badillo) Severe sepsis (Acute) A41.9, R65.20 Supratherapeutic INR (Acute) R79.1 Persistent atrial fibrillation (Chronic) I48.1 Acute respiratory failure with hypoxia (Acute) J96.01 Pneumonia (Acute) J18.9 Coronary artery disease (Acute) I25.10 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) L97.812 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) E11.59 Venous ulcer of right leg (Resolved) I83.019 Venous (peripheral) insufficiency (Chronic) Allergies metoprolol [From Toprol XL] Allergy (Verified 12/24/18 10:32) Other simvastatin Allergy (Verified 12/24/18 10:32) Other spironolactone Allergy (Verified 12/24/18 10:32) Other morphine Adverse Reaction (Verified 12/24/18 10:32) Other confusion, crazy sulfamethoxazole [From Bactrim] Adverse Reaction (Verified 12/24/18 10:32) Unknown trimethoprim [From Bactrim] Adverse Reaction (Verified 12/24/18 10:32) Unknown Home Medications: Ambulatory Orders Medication Instructions Recorded Atorvastatin Calcium [Lipitor] 80 mg PO QHS 04/26/16 Furosemide [Lasix] 40 mg PO BID 04/26/16 Insulin Lispro [Humalog Kwikpen] 16 unit SQ TID 04/26/16 Labetalol [Trandate (Beta Fab)] 100 mg PO BID 04/26/16 Insulin Glargine [Lantus SoloStar 40 units SQ QHS 10/25/17 Pen] Albuterol Inhaler [Ventolin Hfa] 2 puff INHALATION Q4H PRN PRN 10/26/17 Cyanocobalamin (Vitamin B-12) 1,000 mcg PO DAILY 10/26/17 [Vitamin B-12] Glimepiride [Amaryl] 8 mg PO BREAKFAST 10/26/17 Losartan Potassium 50 mg PO DAILY 10/26/17 Polyethylene Glycol 3350 [Miralax] 17 gm PO DAILY 10/26/17 Potassium Chloride 10 meq PO BID 10/26/17 Senna/Docusate Sodium [Senokot-S] 1 tab PO BID PRN PRN 10/26/17 Sertraline HCl [Zoloft] 50 mg PO DAILY 10/26/17 Tamsulosin HCl [Flomax] 0.4 mg PO DAILY 10/26/17 Zolpidem Tartrate [Ambien] 10 mg PO QHS PRN PRN 10/26/17 Acetaminophen [Tylenol Extra 500 mg PO Q8H PRN PRN 09/26/19 Strength] Warfarin Sodium 2 mg PO DAILY 09/26/19 Surgical History: Surgical History (Last Reviewed 12/24/18 @ 10:33 by Christy Badillo) Heart valve replaced (Resolved) Z95.2 S/P placement of cardiac pacemaker (Resolved) Z95.0 Surgical History: - - Heart valve replacement. Smoking Status: Unknown if ever smoked - Physical Exam Vitals/I&O's: Vital Signs Temp Pulse Resp BP Pulse Ox 96.9 F L 68 20 H 162/66 H 99 09/26/19 08:48 09/26/19 08:48 09/26/19 08:48 09/26/19 08:48 09/26/19 08:48 Oxygen Delivery Method Bi-pap Weight: 113.398 kg Body Mass Index (BMI) 32.1 Intake and Output for Last 24 Hours 09/24/19 09/25/19 09/26/19 23:59 23:59 23:59 Output Total 500 / 500 Balance -500 / -500 Laboratory Results 09/26/19 07:30: WBC 10.3, RBC 3.36 L, Hgb 9.1 L, Hct 31.8 L, MCV 94.6 H, MCH 27.1, MCHC 28.6 L, RDW Std Deviation 64.6 H, RDW Coeff of Ian 18.8 H, Plt Count 360, MPV 9.7, Immature Gran % (Auto) 0.700, Neut % (Auto) 79.0 H, Lymph % (Auto) 11.1 L, [place] % (Auto) 6.2, Eos % (Auto) 2.4, Baso % (Auto) 0.6, Absolute Neuts (auto) 8.2 H, Absolute Lymphs (auto) 1.15, Nucleated RBC % 0 09/26/19 07:30: Sodium 139, Potassium 5.2 H, Chloride 110 H, Carbon Dioxide 23.0, Anion Gap 6, BUN 28 H, Creatinine 1.21, Estim Creat Clear Calc 54.72, Est GFR (MDRD) Af Amer 74, Est GFR (MDRD) Non-Af 61, BUN/Creatinine Ratio 23.1 H, Glucose 192 H, Calcium 8.5, Troponin I < 0.015 09/26/19 07:30: B-Natriuretic Peptide 668.1 H 09/26/19 07:30: PT 21.4 H, INR 1.9 09/26/19 07:51: Specimen Type ART, Sample Site R BRACHIAL, pH 7.38, Bicarbonate Actual 22.3, POC Total CO2 23, Base Excess -3 L, O2 Saturation 99, O2 % 40, ABG pCO2 37.8, ABG pO2 139 H, O2 Delivery Device Bi Pap, EPAP 8, IPAP 12, Blood Gas Notified Whom ED MD, Blood Gas Notified Time 751 Assessment/Plan All Active Problems (Last Reviewed 12/24/18 @ 10:33 by Christy Badillo) Heart valve replaced (Resolved) S/P placement of cardiac pacemaker (Resolved) Severe sepsis (Acute) Supratherapeutic INR (Acute) Acute respiratory failure with hypoxia (Acute) Pneumonia (Acute) Coronary artery disease (Acute) 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) Venous ulcer of right leg (Resolved)
[2019-09-26] MEDS: Insulin Lispro 100 UNIT/ML INSULN.PEN SC ×3 (11:55→21:29)
[2019-09-26 12:05] LABS: Bedside Glucose 186 mg/dL (70-110)
[2019-09-26 13:23] LABS: Anion Gap 8 (5-15); BUN 27 mg/dL (7-18); BUN/Creat Ratio 22.9 RATIO (10-20); Calcium,Total 8.3 mg/dL (8.5-10.1); Chloride 107 mmol/L (98-107); Creatinine, Serum 1.18 mg/dL (0.70-1.30); EST Glomerular Filtration Rate 63 mL/min (>60); Est Glom Filt Rate - Afr Amer 76 mL/min (>60); Estimated Creatinine Clearance 54.55 ml/min; Glucose 200 mg/dL (74-106); Potassium 4.6 mmol/L (3.5-5.1); Sodium Level 141 mmol/L (136-145)
--- NOTE | 2019-09-26 13:59 | NURSING ---
wound photo: right lower leg
--- NOTE | 2019-09-26 14:04 | PCM.HP.STD ---
<Rebecca Poe - Last Filed: 09/26/19 14:23> Problem List (1) Acute CHF Status: Acute (2) Heart valve replaced Status: Chronic (3) S/P placement of cardiac pacemaker Status: Chronic (4) Supratherapeutic INR Status: Acute (5) Persistent atrial fibrillation Status: Chronic (6) Acute respiratory failure with hypoxia Status: Acute (7) Coronary artery disease Status: Chronic Qualifiers: Coronary Disease-Associated Artery/Lesion type: [place] artery [place] vs. 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 The patient is a 84 year old M who presents the emergency room due to shortness of breath. Patient reports he was discharged last week from [facility] where he received blood. He is unable to state what else he was treated for or why he received blood. He reports following discharge he has had increased shortness of breath and is now unable to walk across his house without losing his breath. He denies cough, fever, chills. Denies increased lower extremity swelling or known weight gain. Patient does states he has had difficulty with outpatient follow-up since -. He also reports he has difficulty organizing his medications and taking them correctly since his in April. He has a past medical history of CAD with history of PCI, valvular heart disease status post aortic valve replacement, chronic atrial fibrillation, type 2 diabetes mellitus, hypertension, hyperlipidemia, BPH, obesity. Past Medical History Past Medical History (Chronic Problems): Chronic Problems (Last Reviewed 12/24/18 @ 10:33 by Christy Badillo) Heart valve replaced (Chronic) S/P placement of cardiac pacemaker (Chronic) Persistent atrial fibrillation (Chronic) Coronary artery disease (Chronic) Non-pressure chronic ulcer of other part of right lower leg with fat layer exposed (Chronic) 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) Venous ulcer of right leg (Chronic) Venous (peripheral) insufficiency (Chronic) Medical History: Medical History (Last Reviewed 12/24/18 @ 10:33 by Christy Badillo) Supratherapeutic INR (Acute) R79.1 Persistent atrial fibrillation (Chronic) I48.1 Acute respiratory failure with hypoxia (Acute) J96.01 Coronary artery disease (Chronic) I25.10 Non-pressure chronic ulcer of other part of right lower leg with fat layer exposed (Chronic) L97.812 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) E11.59 Venous ulcer of right leg (Chronic) I83.019 Venous (peripheral) insufficiency (Chronic) Allergies metoprolol [From Toprol XL] Allergy (Verified 12/24/18 10:32) Other simvastatin Allergy (Verified 12/24/18 10:32) Other spironolactone Allergy (Verified 12/24/18 10:32) Other morphine Adverse Reaction (Verified 12/24/18 10:32) Other confusion, crazy sulfamethoxazole [From Bactrim] Adverse Reaction (Verified 12/24/18 10:32) Unknown trimethoprim [From Bactrim] Adverse Reaction (Verified 12/24/18 10:32) Unknown Home Medications: Ambulatory Orders Medication Instructions Recorded Atorvastatin Calcium [Lipitor] 80 mg PO QHS 04/26/16 Furosemide [Lasix] 40 mg PO BID 04/26/16 Insulin Lispro [Humalog Kwikpen] 16 unit SQ TIDCM 04/26/16 Labetalol [Trandate (Beta Fab)] 100 mg PO BID 04/26/16 Insulin Glargine [Lantus SoloStar 40 units SQ QHS 10/25/17 Pen] Albuterol Inhaler [Ventolin Hfa] 2 puff INHALATION Q4H PRN PRN 10/26/17 Cyanocobalamin (Vitamin B-12) 1,000 mcg PO DAILY 10/26/17 [Vitamin B-12] Glimepiride [Amaryl] 8 mg PO BREAKFAST 10/26/17 Losartan Potassium 50 mg PO DAILY 10/26/17 Polyethylene Glycol 3350 [Miralax] 17 gm PO DAILY 10/26/17 Potassium Chloride 10 meq PO BID 10/26/17 Senna/Docusate Sodium [Senokot-S] 1 tab PO BID PRN PRN 10/26/17 Sertraline HCl [Zoloft] 50 mg PO DAILY 10/26/17 Tamsulosin HCl [Flomax] 0.4 mg PO DAILY 10/26/17 Zolpidem Tartrate [Ambien] 10 mg PO QHS PRN PRN 10/26/17 Acetaminophen [Tylenol Extra 500 mg PO Q8H PRN PRN 09/26/19 Strength] Ascorbic Acid 500 mg PO DAILY 09/26/19 Ferrous Sulfate, Dried [Iron] 159 mg PO DAILY 09/26/19 Hydroxyzine HCl 25 mg PO Q6H PRN PRN 09/26/19 Pantoprazole Sodium 40 mg PO BID 09/26/19 Warfarin Sodium 2 mg PO DAILY 09/26/19 Surgical History: Surgical History (Last Reviewed 12/24/18 @ 10:33 by Christy Badillo) Heart valve replaced (Chronic) Z95.2 S/P placement of cardiac pacemaker (Chronic) Z95.0 Surgical History: - - Heart valve replacement. Psychiatric History: No pertinent psych hx Lives: Alone Smoking Status: Unknown if ever smoked Alcohol: None Drugs: None - *Family History Maternal Family History: Family History (Last Reviewed 09/26/19 @ 14:09 by BRENNAN Cox) Mother Hypertension Heart disease Father Heart disease Myocardial infarction Paternal Family History: Family History (Last Reviewed 09/26/19 @ 14:09 by BRENNAN Cox) Mother Hypertension Heart disease Father Heart disease Myocardial infarction Review of Systems Constitutional: Denies: Chills, Fever, Weight Change HEENT: Denies: Head Aches, Sinus Congestion, Sinus Drainage Cardiovascular: Denies: Chest Pain, Palpitations Respiratory: Reports: Shortness of Breath. Denies: Cough, Sputum production, Wheezing Gastrointestinal: Denies: Abdominal Pain, Nausea, Vomiting Genitourinary: Denies: Dysuria Musculoskeletal: Denies: Joint Pain, Joint Tenderness Skin: Reports: - - Right lower extremity wound, chronic. Denies: Rash Neurological: Denies: Numbness, Tingling, Focal weakness Psychiatric: Denies: Anxiety, Depression, Homicidal Ideations, Suicidal Ideations Hematologic/ Lymphatic: Denies: Easy Bruising, Easy Bleeding VTE Information - Inpt Only VTE Present on Admission: No VTE Mechan Device Prophylaxis: None VTE Pharm Prophylaxis ordered?: Yes Patient Problems: Active and Suspected Problems (Last Reviewed 12/24/18 @ 10:33 by Christy Badillo) Acute CHF (Acute) Acute respiratory failure with hypoxia (Acute) - Physical Exam Vitals/I&O's: Vital Signs Temp Pulse Resp BP Pulse Ox 97.6 F L 61 23 H 176/61 H 98 09/26/19 11:19 09/26/19 11:19 09/26/19 11:19 09/26/19 11:19 09/26/19 13:25 Oxygen Flow Rate (L/min) 2 Oxygen Delivery Method Nasal Cannula Weight: 249 lb Body Mass Index (BMI) 32.8 Intake and Output for Last 24 Hours 09/24/19 09/25/19 09/26/19 23:59 23:59 23:59 Output Total 1000 / 1000 Balance -1000 / -1000 General: Alert, Oriented x3, Cooperative HEENT: Atraumatic, PERRLA, EOMI, Normocephalic Neck: Supple, No JVD, Negative Carotid Bruits Lungs: Diminished, - - Crackles bilateral bases Cardiovascular: - - Atrial fibrillation, rate controlled Abdomen: Bowel Sounds Present, Soft, Non Tender, Non-Distended Extremities: No clubbing, No cyanosis, Capillary Refill Less than 3 Seconds, Edema - +1 bilateral lower extremities Skin: - - Chronic venous stasis skin changes bilateral lower extremities with right lateral calf venous stasis ulceration Musculoskeletal: No Tenderness to Palpation of Joints or Extremities Neurological: Cranial nerves II-XII grossly intact, Neuro grossly intact Psych/Mental Status: Normal Affect, Appropriate Laboratory Results 09/26/19 07:30: WBC 10.3, RBC 3.36 L, Hgb 9.1 L, Hct 31.8 L, MCV 94.6 H, MCH 27.1, MCHC 28.6 L, RDW Std Deviation 64.6 H, RDW Coeff of Ian 18.8 H, Plt Count 360, MPV 9.7, Immature Gran % (Auto) 0.700, Neut % (Auto) 79.0 H, Lymph % (Auto) 11.1 L, Dent % (Auto) 6.2, Eos % (Auto) 2.4, Baso % (Auto) 0.6, Absolute Neuts (auto) 8.2 H, Absolute Lymphs (auto) 1.15, Nucleated RBC % 0 09/26/19 07:30: Sodium 139, Potassium 5.2 H, Chloride 110 H, Carbon Dioxide 23.0, Anion Gap 6, BUN 28 H, Creatinine 1.21, Estim Creat Clear Calc 54.72, Est GFR (MDRD) Af Amer 74, Est GFR (MDRD) Non-Af 61, BUN/Creatinine Ratio 23.1 H, Glucose 192 H, Calcium 8.5, Troponin I < 0.015 09/26/19 07:30: B-Natriuretic Peptide 668.1 H 09/26/19 07:30: PT 21.4 H, INR 1.9 09/26/19 07:51: Specimen Type ART, Sample Site R BRACHIAL, pH 7.38, Bicarbonate Actual 22.3, POC Total CO2 23, Base Excess -3 L, O2 Saturation 99, O2 % 40, ABG pCO2 37.8, ABG pO2 139 H, O2 Delivery Device Bi Pap, EPAP 8, IPAP 12, Blood Gas Notified Whom ED MD, Blood Gas Notified Time 751 09/26/19 11:49: POC Glucose 186 H 09/26/19 12:45: Sodium 141, Potassium 4.6, Chloride 107, Carbon Dioxide 26.0, Anion Gap 8, BUN 27 H, Creatinine 1.18, Estim Creat Clear Calc 54.55, Est GFR (MDRD) Af Amer 76, Est GFR (MDRD) Non-Af 63, BUN/Creatinine Ratio 22.9 H, Glucose 200 H, Calcium 8.3 L Current Medications Acetaminophen (Tylenol) 650 mg PO Q6H PRN PRN PRN Reason: Pain Score 1-10/Temp > 100.7 F Albuterol Sulfate (Ventolin Aerosols) 2.5 mg INHALATION Q2H PRN PRN PRN Reason: SOB/Wheezing Dextrose (D50w Syringe) 0 gm IV X1 PRN; Protocol PRN Reason: Hypoglycemia Furosemide (Lasix) 40 mg IV Q8 EDWARD Glucagon () 1 mg IM .X1 PRN PRN Reason: Hypoglycemia Guaifenesin (Robitussin) 20 ml PO Q4H PRN PRN PRN Reason: COUGH Sodium Chloride () 250 mls @ 15 mls/hr IV .[id number] PRN PRN Reason: Saline Flush Sodium Chloride () 250 mls @ 15 mls/hr IV .[id number] PRN PRN Reason: Additional IVPB Infusion Insulin Human Lispro (Humalog Kwikpen (Bkc)) 0 unit SC [facility]; Protocol Last Admin: 09/26/19 11:55 Dose: 1 unit Documented by: Magnesium Hydroxide (Milk Of Magnesia) 30 ml PO DAILY PRN PRN PRN Reason: Constipation Nitroglycerin (Nitrostat) 0.4 mg SUBLINGUAL Q5M PRN PRN Reason: CARDIAC/CHEST PAIN Ondansetron HCl (Zofran) 4 mg IV Q8H PRN PRN PRN Reason: NAUSEA/VOMITING Psyllium Hydrophilic Mucilloid (Metamucil) 1 packet PO DAILY PRN PRN PRN Reason: Constipation Sodium Chloride () 10 - 40 ml IV UD PRN PRN Reason: SALINE FLUSH Assessment/Plan All Active Problems (Last Reviewed 12/24/18 @ 10:33 by Christy Badillo) Acute CHF (Acute) Supratherapeutic INR (Acute) Acute respiratory failure with hypoxia (Acute) 1. Acute hypoxic respiratory failure secondary to acute on chronic heart failure with reduced ejection fraction-BNP 668. Chest x-ray consistent with CHF. Echocardiogram 2014 demonstrated an EF of 65%, mild aortic stenosis. Repeat echocardiogram if not completed at [facility] during recent admission, records requested. IV Lasix. Strict I&O. Daily weight. Armand wraps bilateral lower extremities. Initially placed on BiPAP during admission. Oxygen now stable on nasal cannula. Continue supplement oxygen to maintain O2 at or above 90%. Ambulatory pulse ox prior to discharge. 2. Chronic anemia-patient reports admission last week to [facility] where he received 2 units PRBC. Records requested. Continue PPI twice daily. Trend CBC. 3. Chronic venous insufficiency with right lower extremity venous ulceration-wound RN consult. 4. CAD with history of PCI-continue statin, beta-fab. Suspect not on aspirin. 5. Valvular heart disease status post aortic valve replacement 6. Chronic atrial fibrillation-continue Coumadin, beta-fab. 7. Type 2 diabetes mellitus-hold oral regimen. Accu-Cheks with sliding scale insulin. Continue home Lantus regimen. 8. Hypertension-stable, continue current regimen. 9. Hyperlipidemia-continue statin. 10. BPH-continue Flomax regimen. 11. Obesity- encouraged diet and lifestyle modifications. DVT prophylaxis-Coumadin. This patient was seen by BRENNAN Cox under the supervision of Dr. Ponce. <Clau Ponce - Last Filed: 09/26/19 16:30> History of Present Illness The patient is a 84 year old M [] Past Medical History Medical History: Medical History (Last Reviewed 12/24/18 @ 10:33 by Christy Badillo) Supratherapeutic INR (Acute) R79.1 Persistent atrial fibrillation (Chronic) I48.1 Acute respiratory failure with hypoxia (Acute) J96.01 Coronary artery disease (Chronic) I25.10 Non-pressure chronic ulcer of other part of right lower leg with fat layer exposed (Chronic) L97.812 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) E11.59 Venous ulcer of right leg (Chronic) I83.019 Venous (peripheral) insufficiency (Chronic) Allergies metoprolol [From Toprol XL] Allergy (Verified 12/24/18 10:32) Other simvastatin Allergy (Verified 12/24/18 10:32) Other spironolactone Allergy (Verified 12/24/18 10:32) Other morphine Adverse Reaction (Verified 12/24/18 10:32) Other confusion, crazy sulfamethoxazole [From Bactrim] Adverse Reaction (Verified 12/24/18 10:32) Unknown trimethoprim [From Bactrim] Adverse Reaction (Verified 12/24/18 10:32) Unknown Surgical History: Surgical History (Last Reviewed 12/24/18 @ 10:33 by Christy Badillo) Heart valve replaced (Chronic) Z95.2 S/P placement of cardiac pacemaker (Chronic) Z95.0 - *Family History Maternal Family History: Family History (Last Reviewed 09/26/19 @ 14:09 by BRENNAN Cox) Mother Hypertension Heart disease Father Heart disease Myocardial infarction Paternal Family History: Family History (Last Reviewed 09/26/19 @ 14:09 by BRENNAN Cox) Mother Hypertension Heart disease Father Heart disease Myocardial infarction - Physical Exam Vitals/I&O's: Vital Signs Temp Pulse Resp BP Pulse Ox 97.6 F L 60 23 H 176/61 H 98 09/26/19 11:19 09/26/19 14:00 09/26/19 11:19 09/26/19 11:19 09/26/19 13:25 Oxygen Flow Rate (L/min) 2 Oxygen Delivery Method Nasal Cannula Weight: 112.945 kg Body Mass Index (BMI) 32.8 Intake and Output for Last 24 Hours 09/24/19 09/25/19 09/26/19 23:59 23:59 23:59 Output Total 1000 / 1000 Balance -1000 / -1000 Laboratory Results 09/26/19 07:30: WBC 10.3, RBC 3.36 L, Hgb 9.1 L, Hct 31.8 L, MCV 94.6 H, MCH 27.1, MCHC 28.6 L, RDW Std Deviation 64.6 H, RDW Coeff of Ian 18.8 H, Plt Count 360, MPV 9.7, Immature Gran % (Auto) 0.700, Neut % (Auto) 79.0 H, Lymph % (Auto) 11.1 L, Dent % (Auto) 6.2, Eos % (Auto) 2.4, Baso % (Auto) 0.6, Absolute Neuts (auto) 8.2 H, Absolute Lymphs (auto) 1.15, Nucleated RBC % 0 09/26/19 07:30: Sodium 139, Potassium 5.2 H, Chloride 110 H, Carbon Dioxide 23.0, Anion Gap 6, BUN 28 H, Creatinine 1.21, Estim Creat Clear Calc 54.72, Est GFR (MDRD) Af Amer 74, Est GFR (MDRD) Non-Af 61, BUN/Creatinine Ratio 23.1 H, Glucose 192 H, Calcium 8.5, Troponin I < 0.015 09/26/19 07:30: B-Natriuretic Peptide 668.1 H 09/26/19 07:30: PT 21.4 H, INR 1.9 09/26/19 07:51: Specimen Type ART, Sample Site R BRACHIAL, pH 7.38, Bicarbonate Actual 22.3, POC Total CO2 23, Base Excess -3 L, O2 Saturation 99, O2 % 40, ABG pCO2 37.8, ABG pO2 139 H, O2 Delivery Device Bi Pap, EPAP 8, IPAP 12, Blood Gas Notified Whom ED , Blood Gas Notified Time 751 09/26/19 11:49: POC Glucose 186 H 09/26/19 12:45: Sodium 141, Potassium 4.6, Chloride 107, Carbon Dioxide 26.0, Anion Gap 8, BUN 27 H, Creatinine 1.18, Estim Creat Clear Calc 54.55, Est GFR (MDRD) Af Amer 76, Est GFR (MDRD) Non-Af 63, BUN/Creatinine Ratio 22.9 H, Glucose 200 H, Calcium 8.3 L Current Medications Acetaminophen (Tylenol) 650 mg PO Q6H PRN PRN PRN Reason: Pain Score 1-10/Temp > 100.7 F Albuterol Sulfate (Ventolin Aerosols) 2.5 mg INHALATION Q2H PRN PRN PRN Reason: SOB/Wheezing Ascorbic Acid (Vitamin C) 500 mg PO DAILY [facility] Atorvastatin Calcium (Lipitor) 80 mg PO QHS [facility] Dextrose (D50w Syringe) 0 gm IV X1 PRN; Protocol PRN Reason: Hypoglycemia Furosemide (Lasix) 40 mg IV Q8 EDWARD Last Admin: 09/26/19 14:07 Dose: 40 mg Documented by: Glimepiride (Amaryl) 8 mg PO BREAKFAST [facility] Glucagon () 1 mg IM .X1 PRN PRN Reason: Hypoglycemia Guaifenesin (Robitussin) 20 ml PO Q4H PRN PRN PRN Reason: COUGH Sodium Chloride () 250 mls @ 15 mls/hr IV .[id number] PRN PRN Reason: Saline Flush Sodium Chloride () 250 mls @ 15 mls/hr IV .[id number] PRN PRN Reason: Additional IVPB Infusion Insulin Glargine (Lantus (Bkc)) 40 units SC QHS [facility]1983 Insulin Human Lispro (Humalog Kwikpen (Bkc)) 0 unit SC ACHS [facility]; Protocol Last Admin: 09/26/19 11:55 Dose: 1 unit Documented by: Labetalol HCl (Trandate) 100 mg PO BID [facility] Losartan Potassium (Cozaar) 50 mg PO DAILY [facility] Magnesium Hydroxide (Milk Of Magnesia) 30 ml PO DAILY PRN PRN PRN Reason: Constipation Nitroglycerin (Nitrostat) 0.4 mg SUBLINGUAL Q5M PRN PRN Reason: CARDIAC/CHEST PAIN Ondansetron HCl (Zofran) 4 mg IV Q8H PRN PRN PRN Reason: NAUSEA/VOMITING Pantoprazole Sodium (Protonix) 40 mg PO BID [facility] Polyethylene Glycol (Miralax) 17 gm PO DAILY [facility] Psyllium Hydrophilic Mucilloid (Metamucil) 1 packet PO DAILY PRN PRN PRN Reason: Constipation Sertraline HCl (Zoloft) 50 mg PO DAILY [facility] Sodium Chloride () 10 - 40 ml IV UD PRN PRN Reason: SALINE FLUSH Last Admin: 09/26/19 14:07 Dose: 10 ml Documented by: Tamsulosin HCl (Flomax) 0.4 mg PO DAILY [facility] Warfarin Sodium (Coumadin (Pbkc)) 2 mg PO DAILY@1700 EDWARD Zolpidem Tartrate (Ambien (Generic)) 5 mg PO QHS PRN PRN PRN Reason: SLEEP Assessment/Plan This patient was seen in conjunction with Rebecca Poe NP. I have independently interviewed and examined the patient and reviewed pertinent historical, laboratory, and other data. Please refer to her note for patient's presentation, findings, and recommendations. 84-year-old male with past medical history of CAD s/p PCI, s/p aortic valve replacement, chronic atrial fibrillation, hypertension, type II DM, hyperlipidemia comes in with progressive shortness of breath. Was recently discharged from [facility] 4 days ago. Records been asked for. Patient received blood transfusion. Unclear etiology. Admits to orthopnea, bilateral leg swelling, Found to be hypoxic, requiring use of BiPAP. Work-up in the ED consistent with acute CHF Vitals were reviewed -stable Physical Exam: Gen: In mild discomfort, not pale, not jaundiced, alert oriented x3 CVS:HS I +II, regular, no murmurs RESP: Diminished at lung bases, few rales at the bases GI: BS present and normal, nontender, no palpable organs EXT:No edema Labs reviewed: ASSESSMENT: 1. Acute hypoxic respiratory failure 2. Acute on chronic systolic CHF 3. Chronic anemia 4. Chronic bilateral venous stasis 5. CAD status post PCI 6. status post aortic valve replacement 7. Chronic atrial fibrillation 8. Hypertension 9. Hyperlipidemia Meds reviewed Plan: Admit to PCU, CHF protocol Lasix 40 mg IV every 8h, daily weights, fluid restriction Request for records Repeat labs in am Inpatient E&M: 82319 Init Hosp L3
[2019-09-26] MEDS: 0.9% Saline Lock 10 ML Syringe IV (14:07)
--- NOTE | 2019-09-26 14:15 | NURSING ---
This RN taking over care at this time
--- NOTE | 2019-09-26 14:18 | ECHOD_ITS ---
Reason For Study: CHF Procedure This was a 2D Doppler, Color Flow transthoracic echocardiogram. Exam performed portable in patient room. Left Ventricle Normal LV size. The estimated ejection fraction is 60 %. Unable to assess diastolic dysfunction. septal hypokinesis probably related to prior cardiac surgery. Right Ventricle Normal RV size. Normal systolic function. Atria The left atrium is severely enlarged. The right atrium is moderately enlarged. No doppler evidence for ASD. Mitral Valve There is moderate to severe mitral annular calcification. There is no mitral valve stenosis. Trivial mitral valve insufficiency. Tricuspid Valve There is no tricuspid stenosis. Mild tricuspid valve insufficiency. Pulmonary artery systolic pressure is 60 mmHg. Aortic Valve There is no aortic stenosis. Mild (1+) aortic valve insufficiency. Stable appearing bioprosthetic aortic valve apparatus. Pulmonic Valve There is no pulmonic valvular stenosis. No pulmonic valve insufficiency. Great Vessels Normal aortic root. Pericardium/Pleural No pericardial effusion. MMode/2D Measurements & Calculations LVIDd: 6.1 cm IVSd: 1.3 cm Ao root diam: 3.5 cm LVIDs: 4.5 cm LVPWd: 1.4 cm RVDd: 4.6 cm FS: 26.1 % LAV(MOD-bp): 131.1 ml LA A4 area: 34.7 cm2 LA dimension(2D): 5.7 cm LAV(MOD-bp) Indexed: 55.5 ml/m2 LAV(MOD-sp2): 123.0 ml LAV(MOD-sp4): 140.9 ml RA A4 area: 30.4 cm2 Doppler Measurements & Calculations MV E max gordon: 162.6 cm/sec Lat Peak E' Gordon: 7.9 cm/sec Med Peak E' Gordon: 5.7 cm/sec E/E' lat: 20.5 E/E' med: 28.6 Ao V2 max: 226.9 cm/sec LV V1 max: 97.9 cm/sec PA V2 max: 98.7 cm/sec Ao max P.6 mmHg LV V1 max P.8 mmHg Ao V2 mean: 156.6 cm/sec Ao mean P.9 mmHg Ao V2 VTI: 48.5 cm TR max gordon: 343.3 cm/sec TR max P.2 mmHg Interpretation Summary The estimated ejection fraction is 60 %. Unable to assess diastolic dysfunction. septal hypokinesis probably related to prior cardiac surgery The left atrium is severely enlarged. The right atrium is moderately enlarged. There is moderate to severe mitral annular calcification. Trivial mitral valve insufficiency. Mild tricuspid valve insufficiency. Stable appearing bioprosthetic aortic valve apparatus. Mild (1+) aortic valve insufficiency. Ordering Physician: Rebecca Poe Referring Physician: Andrew Ordonez Performed By: Paola Siu, NICHOL, RVT
--- NOTE | 2019-09-26 15:50 | CASEMGMT ---
RN CM NURSE OBGYN CM to room to meet with patient for initial transition planning/care coordination assessment. RN IZAIAH introduced self and role at [facility]. Pt voices understanding and consents to assessment at this time. Pt sitting up in chair in room in no distress at this time. Pt is A/O at this time and answers all questions appropriately. Care providers, pharmacy, and demographics verified/updated at this time. PCP: Dr Ordonez Specialists: Hotel Superintendent in [place]. Does not remember his name Preferred Pharmacy: [facility] Insurance: [employer], Other commercial Prescription Benefit: Yes Living Will/HPOA: Has both LW and Healthcare POA, who is his sonJoseluis) Ana. LNOK: 4 adult children. SonJoseluis is POA Living Arrangements: Lives alone in one-story home w/2-3 steps to enter. Independent Transportation: Pt states drives self and states no transportation concerns at this time. SonAbhilash, will take pt home @ D/C DME: States has the following DME: walk-in shower w/built in seat, rails/grab bars, hand held shower, cane. Does not have home O2. Pt states no need for further DME at this time. States would be interested in getting a walker at some time as a back-up, but does not need now. HHC/SNF: No history of SNF. Has had HHC in the past, but does not remember name of agency. Declines need for HHC or OP therapy. Discussed CCN d/t new diagnosis CHF. Pt declines at this time. Pt wishes to return home and states has no concerns with going home at time of discharge. CM to follow for home oxygen needs and any further discharge planning/needs. Pt voices no further concerns/needs at this time. Advised pt to ask for CM if any further questions/concerns/needs arise. Voices understanding. PLAN: Home. Follow for any Home oxygen needs. Sherice CARTER RN, CM
[2019-09-26 16:46] LABS: Bedside Glucose 176 mg/dL (70-110)
[2019-09-26] MEDS: Magnesium Hydroxide 30 ML UDC PO (17:13)
[2019-09-26] MEDS: Pantoprazole Sodium 40 MG Tablet PO (21:32)
[2019-09-26] MEDS: Labetalol 100 MG Tablet PO (21:32)
[2019-09-26 22:15] LABS: Bedside Glucose 153 mg/dL (70-110)
--- NOTE | 2019-09-26 23:10 | CPS ---
pt refuses bipap for tonight
[2019-09-27] VITALS (11 sets, daily range): BP systolic 134–150; BP diastolic 51–63; PULSE 60–64; RESP 14–19; TEMP 36.6–36.8; O2SAT 95–96
[2019-09-27] MEDS: Zolpidem Tartrate 5 MG Tablet PO (00:16)
[2019-09-27] MEDS: Acetaminophen 325 MG Tablet 650 MG PO (06:04)
[2019-09-27] MEDS: Furosemide 40 MG/4 ML Vial IV ×2 (06:05→13:43)
[2019-09-27] MEDS: 0.9% Saline Lock 10 ML Syringe IV ×2 (06:05→13:43)
[2019-09-27 06:55] LABS: Bedside Glucose 121 mg/dL (70-110)
[2019-09-27 07:31] LABS: Absolute Lymphocyte Count 0.87 X10^3/uL (0.83-4.51); Absolute Neutrophil Count 4.9 X10^3/uL (2.0-7.7); Basophil# 0.04 X10^3/uL; Basophil% 0.6 % (0-1); Eosinophil# 0.18 X10^3/uL; Eosinophils% 2.7 % (0-5); Hematocrit 27.8 % (40-54); Lymphocyte # 0.87 X10^3/ul (4.0); Lymphocyte % 13.2 % (19-41); Mean Corp Hgb Conc 28.8 g/dL (32-36); Mean Corpuscular Hgb 26.5 pg (27.0-32.0); Mean Corpuscular Volume 92.1 fL (80-94); Monocyte# 0.53 X10^3/uL; Monocyte% 8.1 % (0-10); NRBC Flagged by Analyzer 0 % (0-5); Neutrophil # 4.93 X10^3/uL (2.7-7.7); Neutrophil % 75.1 % (47-70); Platelet Count 301 K/mm3 (150-450); RBC Distribution Width CV 18.7 % (11.6-14.6); RBC Distribution Width SD 62.4 fl (35.1-43.9); Red Blood Count 3.02 M/mm3 (4.6-6.2); White Blood Count 6.6 K/mm3 (4.4-11.0)
[2019-09-27 07:41] LABS: International Normalized Ratio 1.8; Prothrombin Time (Protime)PT. 20.7 SECONDS (11.7-14.9)
[2019-09-27 08:08] LABS: ALB/GLOB Ratio 0.7 RATIO (0.9-2.4); AST(SGOT) 37 U/L (15-37); Alanine Aminotransfer ALT/SGPT 74 U/L (16-61); Albumin, Serum 2.9 g/dL (3.2-5.0); Alkaline Phosphatase 339 U/L (45-117); Anion Gap 7 (5-15); BUN 30 mg/dL (7-18); BUN/Creat Ratio 22.6 RATIO (10-20); Calcium,Total 8.5 mg/dL (8.5-10.1); Chloride 103 mmol/L (98-107); Creatinine, Serum 1.33 mg/dL (0.70-1.30); EST Glomerular Filtration Rate 55 mL/min (>60); Est Glom Filt Rate - Afr Amer 66 mL/min (>60); Estimated Creatinine Clearance 48.39 ml/min; Glucose 114 mg/dL (74-106); Potassium 3.9 mmol/L (3.5-5.1); Protein, Total 6.9 g/dL (6.4-8.2); Sodium Level 141 mmol/L (136-145)
[2019-09-27] MEDS: Glimepiride 4 MG Tablet 8 MG PO (08:22)
[2019-09-27] MEDS: traMADol 50 MG Tablet PO (08:22)
[2019-09-27] MEDS: Losartan Potassium 50 MG Tablet PO (08:22)
[2019-09-27] MEDS: Polyethylene Glycol 3350 17 GM PACKET PO (08:23)
[2019-09-27] MEDS: Tamsulosin HCl 0.4 MG Capsule PO (08:23)
[2019-09-27] MEDS: Sertraline 50 MG Tablet PO (08:23)
[2019-09-27] MEDS: Ascorbic Acid 500 MG Tablet PO (08:23)
[2019-09-27] MEDS: Labetalol 100 MG Tablet PO ×2 (08:23→21:56)
[2019-09-27] MEDS: Pantoprazole Sodium 40 MG Tablet PO ×2 (08:23→21:56)
[2019-09-27] MEDS: Insulin Lispro 100 UNIT/ML INSULN.PEN SC ×3 (11:13→22:00)
[2019-09-27 11:21] LABS: Bedside Glucose 231 mg/dL (70-110)
[2019-09-27] MEDS: Magnesium Hydroxide 30 ML UDC PO (14:06)
--- NOTE | 2019-09-27 16:02 | CASEMGMT ---
Social Work Spoke with patient about Palliative Medicine d/t CHF, symptoms and medication management. Pt is agreeable as the goal is to remain in the hospital. Pt is relieved to get a dx of CHF to know what has been wrong with him. Pt agreed to referral but would also like a call to his son, Abhilash, to explain the program to him. Attempted to call the son, but voicemail not set up. Referral made to Palliative. Sunita Appiah, TEASEL GIG OPERATOR OWNER MANAGER
[2019-09-27 16:10] LABS: Bedside Glucose 190 mg/dL (70-110)
--- NOTE | 2019-09-27 17:44 | PCM.PN.HOSP ---
Patient Problems: Active and Suspected Problems (Last Reviewed 12/24/18 @ 10:33 by Christy Badillo) Acute CHF (Acute) Acute respiratory failure with hypoxia (Acute) Reason for Visit: Follow-up on acute CHF. Subjective: Patient seen and examined. Denies any chest pain, dizziness, palpitations. He feels improved. Objective: Physical exam: General: Alert, Oriented x3, Cooperative HEENT: Atraumatic, PERRLA, EOMI, Normocephalic Neck: Supple, No JVD, Negative Carotid Bruits Lungs: Diminished, - - Crackles bilateral bases Cardiovascular: - - Atrial fibrillation, rate controlled Abdomen: Bowel Sounds Present, Soft, Non Tender, Non-Distended Extremities: No clubbing, No cyanosis, Capillary Refill Less than 3 Seconds, Edema - +1 bilateral lower extremities Skin: - - Chronic venous stasis skin changes bilateral lower extremities with right lateral calf venous stasis ulceration Musculoskeletal: No Tenderness to Palpation of Joints or Extremities Neurological: Cranial nerves II-XII grossly intact, Neuro grossly intact Psych/Mental Status: Normal Affect, Appropriate Vitals/I&O's: Vital Signs Temp Pulse Resp BP Pulse Ox 98.1 F 61 16 134/60 H 95 09/27/19 15:02 09/27/19 15:02 09/27/19 15:02 09/27/19 15:02 09/27/19 15:02 Oxygen Flow Rate (L/min) 2 Oxygen Delivery Method Room Air Weight: 112.576 kg Body Mass Index (BMI) 32.8 Intake and Output for Last 24 Hours 09/25/19 09/26/19 09/27/19 23:59 23:59 23:59 Intake Total 1220 / 1220 775 / 775 Output Total 3150 / 3150 800 / 800 Balance -1930 / -1930 -25 / -25 Laboratory Results 09/26/19 21:27: POC Glucose 153 H 09/27/19 06:44: WBC 6.6, RBC 3.02 L, Hgb 8.0 L, Hct 27.8 L, MCV 92.1, MCH 26.5 L, MCHC 28.8 L, RDW Std Deviation 62.4 H, RDW Coeff of Ian 18.7 H, Plt Count 301, MPV 9.0, Immature Gran % (Auto) 0.300, Neut % (Auto) 75.1 H, Lymph % (Auto) 13.2 L, Leon % (Auto) 8.1, Eos % (Auto) 2.7, Baso % (Auto) 0.6, Absolute Neuts (auto) 4.9, Absolute Lymphs (auto) 0.87, Nucleated RBC % 0 09/27/19 06:44: Sodium 141, Potassium 3.9, Chloride 103, Carbon Dioxide 31.0, Anion Gap 7, BUN 30 H, Creatinine 1.33 H, Estim Creat Clear Calc 48.39, Est GFR (MDRD) Af Amer 66, Est GFR (MDRD) Non-Af 55 L, BUN/Creatinine Ratio 22.6 H, Glucose 114 H, Calcium 8.5, Total Bilirubin 1.40 H, AST 37, ALT 74 H, Alkaline Phosphatase 339 H, Total Protein 6.9, Albumin 2.9 L, Globulin 4.0, Albumin/Globulin Ratio 0.7 L 09/27/19 06:48: PT 20.7 H, INR 1.8 09/27/19 06:49: POC Glucose 121 H 09/27/19 11:12: POC Glucose 231 H 09/27/19 15:57: POC Glucose 190 H Current Medications Acetaminophen (Tylenol) 650 mg PO Q6H PRN PRN PRN Reason: Pain Score 1-10/Temp > 100.7 F Last Admin: 09/27/19 06:04 Dose: 650 mg Documented by: Albuterol Sulfate (Ventolin Aerosols) 2.5 mg INHALATION Q2H PRN PRN PRN Reason: SOB/Wheezing Ascorbic Acid (Vitamin C) 500 mg PO DAILY [facility] Last Admin: 09/27/19 08:23 Dose: 500 mg Documented by: Atorvastatin Calcium (Lipitor) 80 mg PO QHS [facility] Last Admin: 09/26/19 21:33 Dose: Not Given Documented by: Dextrose (D50w Syringe) 0 gm IV X1 PRN; Protocol PRN Reason: Hypoglycemia Furosemide (Lasix) 40 mg IV Q8 [facility] Last Admin: 09/27/19 13:43 Dose: 40 mg Documented by: Glimepiride (Amaryl) 8 mg PO BREAKFAST [facility] Last Admin: 09/27/19 08:22 Dose: 8 mg Documented by: Glucagon () 1 mg IM .X1 PRN PRN Reason: Hypoglycemia Guaifenesin (Robitussin) 20 ml PO Q4H PRN PRN PRN Reason: COUGH Sodium Chloride () 250 mls @ 15 mls/hr IV .[id number] PRN PRN Reason: Saline Flush Sodium Chloride () 250 mls @ 15 mls/hr IV .[id number] PRN PRN Reason: Additional IVPB Infusion Insulin Glargine (Lantus ([facility])) 40 units SC QHS [facility] Last Admin: 09/26/19 21:29 Dose: 40 u Documented by: Insulin Human Lispro (Humalog Kwikpen ([facility])) 0 unit SC ACHS [facility]; Protocol Last Admin: 09/27/19 15:59 Dose: 1 unit Documented by: Labetalol HCl (Trandate) 100 mg PO BID [facility] Last Admin: 09/27/19 08:23 Dose: 100 mg Documented by: Losartan Potassium (Cozaar) 50 mg PO DAILY [facility] Last Admin: 09/27/19 08:22 Dose: 50 mg Documented by: Magnesium Hydroxide (Milk Of Magnesia) 30 ml PO DAILY PRN PRN PRN Reason: Constipation Last Admin: 09/27/19 14:06 Dose: 30 ml Documented by: Nitroglycerin (Nitrostat) 0.4 mg SUBLINGUAL Q5M PRN PRN Reason: CARDIAC/CHEST PAIN Ondansetron HCl (Zofran) 4 mg IV Q8H PRN PRN PRN Reason: NAUSEA/VOMITING Pantoprazole Sodium (Protonix) 40 mg PO BID [facility] Last Admin: 09/27/19 08:23 Dose: 40 mg Documented by: Polyethylene Glycol (Miralax) 17 gm PO DAILY [facility] Last Admin: 09/27/19 08:23 Dose: 17 gm Documented by: Psyllium Hydrophilic Mucilloid (Metamucil) 1 packet PO DAILY PRN PRN PRN Reason: Constipation Sertraline HCl (Zoloft) 50 mg PO DAILY [facility] Last Admin: 09/27/19 08:23 Dose: 50 mg Documented by: Sodium Chloride () 10 - 40 ml IV UD PRN PRN Reason: SALINE FLUSH Last Admin: 09/27/19 13:43 Dose: 10 ml Documented by: Tamsulosin HCl (Flomax) 0.4 mg PO DAILY [facility] Last Admin: 09/27/19 08:23 Dose: 0.4 mg Documented by: Warfarin Sodium (Coumadin (Pbkc)) 2 mg PO DAILY@1700 [facility] Last Admin: 09/27/19 15:59 Dose: 2 mg Documented by: Zolpidem Tartrate (Ambien (Generic)) 5 mg PO QHS PRN PRN PRN Reason: SLEEP AID Last Admin: 09/27/19 00:16 Dose: 5 mg Documented by: STROKE Vital Signs/Narrative: Vital Signs Temp Pulse Resp BP Pulse Ox 09/27/19 15:02 98.1 F 61 16 134/60 H 95 09/27/19 14:57 61 Medical Necessity - Tobacco Use Smoking Status: Unknown if ever smoked Assessment/Plan All Active Problems (Last Reviewed 12/24/18 @ 10:33 by Christy Badillo) Acute CHF (Acute) Supratherapeutic INR (Acute) Acute respiratory failure with hypoxia (Acute) 1. Acute hypoxic respiratory failure secondary to #2, resolved Encourage use of incentive spirometer. 2. Acute on chronic systolic CHF, EF 57%, diuresing well On Lasix, will decrease Lasix 40mg IV BID Will continue with CHF protocol 3. Chronic anemia, recent h/o GI bleed, INR 1.8 Hb drop from 9.1 to 8.0 Will work-up with stool for occult blood, iron stools Continue on PPI BID 4. CAD status post PCI/ status post aortic valve replacement/Chronic atrial fibrillation/Hypertension/Hyperlipidemia On statin, losartan, Labetalol 5. Type 2 DM, BS uncontrolled, on amaryl, Lantus, Continue with ISS with blood glucose checks 6. DVT PPx- on Coumadin; INR 1.8 Inpatient E&M: 97940 Subs Hosp L2
[2019-09-27 18:43] LABS: Hematocrit 26.5 % (40-54)
[2019-09-27 18:47] LABS: Iron 31 ug/dL (65-175); Iron Binding Capacity,Total 284 ug/dL (250-450); PERCENT IRON SATURATION 10.9 % (15.0-55.0)
[2019-09-27] MEDS: Rizatriptan Benzoate 5 MG Tablet PO (20:37)
[2019-09-27] MEDS: MELATONIN 3 MG TABLET PO (21:56)
[2019-09-27] MEDS: Atorvastatin Calcium 80 MG Tablet PO (21:57)
[2019-09-27 22:05] LABS: Bedside Glucose 216 mg/dL (70-110)
--- NOTE | 2019-09-27 23:48 | CPS ---
PT REFUSES TO WEAR BIPAP.PT STATES HE TRIED IT BUT COULDNT TOLERATE IT.
[2019-09-28] VITALS (8 sets, daily range): BP systolic 123–141; BP diastolic 40–59; PULSE 60–68; RESP 15–18; TEMP 36.8; O2SAT 90–96
[2019-09-28 01:41] LABS: Bedside Glucose 153 mg/dL (70-110)
[2019-09-28] MEDS: Furosemide 40 MG/4 ML Vial IV ×2 (06:04→09:30)
[2019-09-28] MEDS: 0.9% Saline Lock 10 ML Syringe IV ×2 (06:04→09:30)
[2019-09-28 06:05] LABS: ALB/GLOB Ratio 0.7 RATIO (0.9-2.4); AST(SGOT) 28 U/L (15-37); Alanine Aminotransfer ALT/SGPT 61 U/L (16-61); Albumin, Serum 2.7 g/dL (3.2-5.0); Alkaline Phosphatase 283 U/L (45-117); Anion Gap 7 (5-15); BUN 30 mg/dL (7-18); BUN/Creat Ratio 25.4 RATIO (10-20); Calcium,Total 8.4 mg/dL (8.5-10.1); Chloride 103 mmol/L (98-107); Creatinine, Serum 1.18 mg/dL (0.70-1.30); EST Glomerular Filtration Rate 63 mL/min (>60); Est Glom Filt Rate - Afr Amer 76 mL/min (>60); Estimated Creatinine Clearance 54.55 ml/min; Globulin 3.8 g/dL (2.2-4.2); Glucose 196 mg/dL (74-106); Protein, Total 6.5 g/dL (6.4-8.2); Sodium Level 141 mmol/L (136-145)
[2019-09-28 06:08] LABS: International Normalized Ratio 1.7; Prothrombin Time (Protime)PT. 19.2 SECONDS (11.7-14.9)
[2019-09-28] MEDS: Insulin Lispro 100 UNIT/ML INSULN.PEN SC ×2 (06:31→11:19)
[2019-09-28 06:36] LABS: Bedside Glucose 178 mg/dL (70-110)
[2019-09-28 08:17] LABS: Absolute Neutrophil Count 4.5 X10^3/uL (2.0-7.7); Basophil# 0.04 X10^3/uL; Basophil% 0.6 % (0-1); Eosinophil# 0.16 X10^3/uL; Eosinophils% 2.6 % (0-5); Hematocrit 27.7 % (40-54); Lymphocyte % 14.5 % (19-41); Mean Corp Hgb Conc 28.9 g/dL (32-36); Mean Corpuscular Volume 93.6 fL (80-94); Monocyte# 0.54 X10^3/uL; Monocyte% 8.7 % (0-10); NRBC Flagged by Analyzer 0 % (0-5); Neutrophil # 4.53 X10^3/uL (2.7-7.7); Neutrophil % 73.1 % (47-70); Platelet Count 317 K/mm3 (150-450); RBC Distribution Width CV 18.6 % (11.6-14.6); RBC Distribution Width SD 63.7 fl (35.1-43.9); Red Blood Count 2.96 M/mm3 (4.6-6.2); White Blood Count 6.2 K/mm3 (4.4-11.0)
[2019-09-28] MEDS: Labetalol 100 MG Tablet PO (09:30)
[2019-09-28] MEDS: Tamsulosin HCl 0.4 MG Capsule PO (09:30)
[2019-09-28] MEDS: Pantoprazole Sodium 40 MG Tablet PO (09:30)
[2019-09-28] MEDS: Ascorbic Acid 500 MG Tablet PO (09:30)
[2019-09-28] MEDS: Losartan Potassium 50 MG Tablet PO (09:30)
[2019-09-28] MEDS: Sertraline 50 MG Tablet PO (09:30)
[2019-09-28] MEDS: Ferrous Sulfate 325 MG Tablet PO (09:30)
[2019-09-28] MEDS: Glimepiride 4 MG Tablet 8 MG PO (09:31)
--- NOTE | 2019-09-28 10:08 | DCINST_ITS ---
- Discharge Diagnoses Current Active Problems: Current Active and Chronic Problems (Last Reviewed 12/24/18 @ 10:33 by Christy Badillo) Acute CHF (Acute) Persistent atrial fibrillation (Chronic) Acute respiratory failure with hypoxia (Acute) Reason(s) for Visit for Discharge Instructions: Acute CHF You will use the following diet at home:: Calorie/Carbohydrate Controlled (specify 1200, 1400, etc) - 1800 mls, Cardiac Your food should be the consistency of: Regular Your liquids should be the consistency of: Regular/Thin Discharge Activity: Return to Normal Activity Additional Instructions: 1. Take note of changes in your medications. 2. You should be on a low salt, low fat diet. You should restrict your total fluid intake to 1500mls per day. 3. Weigh yourself everyday; let your doctor know if you gain more than 4 pounds water weight in a couple of days. 4. Take all your medications as prescribed. 5. You should not take your coumadin unless you are instructed to. 6. You will be having an endoscopy on Monday to look for the source of bleeding in your stools. 7. You will need a COVID test before the procedure. Dr. Shaw's office will contact you to schedule one. Allergies/Adverse Reactions: Allergies metoprolol [From Toprol XL] Allergy (Verified 12/24/18 10:32) Other simvastatin Allergy (Verified 12/24/18 10:32) Other spironolactone Allergy (Verified 12/24/18 10:32) Other morphine Adverse Reaction (Verified 12/24/18 10:32) Other confusion, crazy sulfamethoxazole [From Bactrim] Adverse Reaction (Verified 12/24/18 10:32) Unknown trimethoprim [From Bactrim] Adverse Reaction (Verified 12/24/18 10:32) Unknown Medications to take at Discharge Atorvastatin Calcium [Lipitor] 80 mg PO QHS 04/26/16 Furosemide [Lasix] 40 mg PO BID 04/26/16 Insulin Lispro [Humalog Kwikpen] 16 unit SQ TIDCM 04/26/16 Labetalol [Trandate (Beta Fab)] 100 mg PO BID 04/26/16 Insulin Glargine [Lantus SoloStar Pen] 40 units SQ QHS 10/25/17 Albuterol Inhaler [Ventolin Hfa] 2 puff INHALATION Q4H PRN PRN 10/26/17 Cyanocobalamin (Vitamin B-12) [Vitamin B-12] 1,000 mcg PO DAILY 10/26/17 Glimepiride [Amaryl] 8 mg PO BREAKFAST 10/26/17 Losartan Potassium 50 mg PO DAILY 10/26/17 Polyethylene Glycol 3350 [Miralax] 17 gm PO DAILY 10/26/17 Potassium Chloride 10 meq PO BID 10/26/17 Senna/Docusate Sodium [Senokot-S] 1 tab PO BID PRN PRN 10/26/17 Sertraline HCl [Zoloft] 50 mg PO DAILY 10/26/17 Tamsulosin HCl [Flomax] 0.4 mg PO DAILY 10/26/17 Zolpidem Tartrate [Ambien] 10 mg PO QHS PRN PRN 10/26/17 Acetaminophen [Tylenol] 500 mg PO Q8H PRN PRN 09/26/19 Ascorbic Acid 500 mg PO DAILY 09/26/19 Ferrous Sulfate, Dried [Iron] 159 mg PO DAILY 09/26/19 Hydroxyzine HCl 25 mg PO Q6H PRN PRN 09/26/19 Pantoprazole Sodium 40 mg PO BID 09/26/19 Primary Care Physician: Omid Ordonez MD [Primary Care Provider] - Please follow up with your Primary Care Physician in: within 1-2 weeks Test Results: Test results from this visit will be discussed in further detail at your follow- up appointment, if applicable. Please Follow Up With: Rosalind Shaw MD When: On Monday for procedure. Call Office [phone] to set-up appt Proposed Discharge Date: 09/28/19
--- NOTE | 2019-09-28 10:14 | DS.PCM_ITS ---
Discharge Date and Diagnosis - Problem List Patient Problems: Active and Suspected Problems (Last Reviewed 12/24/18 @ 10:33 by Christy Badillo) Acute CHF (Acute) Acute respiratory failure with hypoxia (Acute) Date of Admission: 09/26/19 Date of Discharge: 09/28/19 - Primary Discharge Diagnosis Acute Problems: Active Problems (Last Reviewed 12/24/18 @ 10:33 by Christy Badillo) Acute on chronic systolic CHF, EF 57% Acute respiratory failure with hypoxia (Acute) Acute on chronic GI bleed Acute on chronic blood loss anemia Uncontrolled Type 2 DM - Secondary Discharge Diagnosis Chronic Problems: Chronic Problems (Last Reviewed 12/24/18 @ 10:33 by Christy Badillo) Heart valve replaced (Chronic) S/P placement of cardiac pacemaker (Chronic) Persistent atrial fibrillation (Chronic) Coronary artery disease (Chronic) 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 Electronically Signed: Paul Nair, at 8:33 EDT , Service support , Consultations 09/26/19 12:30 Consult: Onc/Wound/shredder operator Routine Comment: Reason for Consult:: RLE wound Comments:: dressing recommendations Operations: None Procedures: None Summary of Care Provided: The patient is a 84 year old M with PMHx of chronic atrial fibrillation, Hypertension, Type 2 DM, s/p aortic valve replacement was recently discharged from [facility] where he received treatment for supratherapeutic INR and severe anemia. Patient had been home for less than 4 days when he complains of progressive shortness of breath, orthopnea, and PND. He had difficulty following up as a result of the current COVID?19 pandemic. He was found to be in acute hypoxic respiratory failure and was saturating well on BiPAP. He was started on Lasix with improvement. He continued to diurese and was off oxygen the next day. Patient was found to have drop in hemoglobin from 9.1-8.0. Repeat H&H is very stable. FOBT was positive. He was started on pantoprazole twice daily. Patient was arranged to have endoscopy on 10/02/19. He was discharged on oral iron. He received IV Venofer in the hospital prior to discharge. Patient Problems: Active and Suspected Problems (Last Reviewed 12/24/18 @ 10:33 by Christy Badillo) Acute CHF (Acute) Acute respiratory failure with hypoxia (Acute) Subjective: On the day of discharge, patient was seen and examined. Denied any new complaints. Objective: Physical exam: General: Alert, Oriented x3, Cooperative HEENT: Atraumatic, PERRLA, EOMI, Normocephalic Neck: Supple, No JVD, Negative Carotid Bruits Lungs: Diminished, - - Crackles bilateral bases Cardiovascular: - - Atrial fibrillation, rate controlled Abdomen: Bowel Sounds Present, Soft, Non Tender, Non-Distended Extremities: No clubbing, No cyanosis, Capillary Refill Less than 3 Seconds, Edema - +1 bilateral lower extremities Skin: - - Chronic venous stasis skin changes bilateral lower extremities with right lateral calf venous stasis ulceration Musculoskeletal: No Tenderness to Palpation of Joints or Extremities Neurological: Cranial nerves II-XII grossly intact, Neuro grossly intact Psych/Mental Status: Normal Affect, Appropriate - Physical Exam Vitals/I&O's: Vital Signs Temp Pulse Resp BP Pulse Ox 98.3 F 60 18 141/54 H 96 09/28/19 09:00 09/28/19 09:00 09/28/19 09:00 09/28/19 09:00 09/28/19 09:00 Oxygen Flow Rate (L/min) 2 Oxygen Delivery Method Room Air Weight: 103.6 kg Body Mass Index (BMI) 32.8 Intake and Output for Last 24 Hours 09/26/19 09/27/19 09/28/19 23:59 23:59 23:59 Intake Total 1220 / 1220 1075 / 1075 575 / 575 Output Total 3150 / 3150 1120 / 1120 200 / 200 Balance -1930 / -1930 -45 / -45 375 / 375 Microbiology Past 72 Hours 09/28/19 05:53 Stool Stool Occult Blood (ROEL) - Final Occult Blood Positive Laboratory Results 09/27/19 06:44: Iron 31 L, TIBC 284, Iron Saturation 10.9 L 09/27/19 11:12: POC Glucose 231 H 09/27/19 15:57: POC Glucose 190 H 09/27/19 18:33: Hgb 8.0 L, Hct 26.5 L 09/27/19 21:54: POC Glucose 216 H 09/28/19 01:33: POC Glucose 153 H 09/28/19 05:25: PT 19.2 H, INR 1.7 09/28/19 05:25: Sodium 141, Potassium 4.0, Chloride 103, Carbon Dioxide 31.0, Anion Gap 7, BUN 30 H, Creatinine 1.18, Estim Creat Clear Calc 54.55, Est GFR (MDRD) Af Amer 76, Est GFR (MDRD) Non-Af 63, BUN/Creatinine Ratio 25.4 H, Glucose 196 H, Calcium 8.4 L, Total Bilirubin 1.00, AST 28, ALT 61, Alkaline Phosphatase 283 H, Total Protein 6.5, Albumin 2.7 L, Globulin 3.8, Albumin/Globulin Ratio 0.7 L 09/28/19 05:25: WBC 6.2, RBC 2.96 L, Hgb 8.0 L, Hct 27.7 L, MCV 93.6, MCH 27.0, MCHC 28.9 L, RDW Std Deviation 63.7 H, RDW Coeff of Ian 18.6 H, Plt Count 317, MPV 9.0, Immature Gran % (Auto) 0.500, Neut % (Auto) 73.1 H, Lymph % (Auto) 14.5 L, [place] % (Auto) 8.7, Eos % (Auto) 2.6, Baso % (Auto) 0.6, Absolute Neuts (auto) 4.5, Absolute Lymphs (auto) 0.90, Nucleated RBC % 0 09/28/19 06:29: POC Glucose 178 H Current Medications Acetaminophen (Tylenol) 650 mg PO Q6H PRN PRN PRN Reason: Pain Score 1-10/Temp > 100.7 F Last Admin: 09/27/19 06:04 Dose: 650 mg Documented by: Albuterol Sulfate (Ventolin Aerosols) 2.5 mg INHALATION Q2H PRN PRN PRN Reason: SOB/Wheezing Ascorbic Acid (Vitamin C) 500 mg PO DAILY [facility] Last Admin: 09/28/19 09:30 Dose: 500 mg Documented by: Atorvastatin Calcium (Lipitor) 80 mg PO QHS [facility] Last Admin: 09/27/19 21:57 Dose: 80 mg Documented by: Dextrose (D50w Syringe) 0 gm IV X1 PRN; Protocol PRN Reason: Hypoglycemia Docusate Sodium (Colace) 100 mg PO BID PRN PRN PRN Reason: Constipation Ferrous Sulfate (Ferrous Sulfate) 325 mg PO 1200,1700 [facility] Last Admin: 09/28/19 09:30 Dose: 325 mg Documented by: Furosemide (Lasix) 40 mg IV BID [facility] Last Admin: 09/28/19 09:30 Dose: 40 mg Documented by: Glimepiride (Amaryl) 8 mg PO BREAKFAST [facility] Last Admin: 09/28/19 09:31 Dose: 8 mg Documented by: Glucagon () 1 mg IM .X1 PRN PRN Reason: Hypoglycemia Guaifenesin (Robitussin) 20 ml PO Q4H PRN PRN PRN Reason: COUGH Sodium Chloride () 250 mls @ 15 mls/hr IV .[id number] PRN PRN Reason: Saline Flush Sodium Chloride () 250 mls @ 15 mls/hr IV .[id number] PRN PRN Reason: Additional IVPB Infusion Iron Sucrose 200 mg/ Sodium (Chloride) 110 mls @ 220 mls/hr IV X1 ONE Stop: 09/28/19 10:59 Insulin Glargine (Lantus ([facility])) 40 units SC QHS [facility] Last Admin: 09/27/19 21:59 Dose: 40 u Documented by: Insulin Human Lispro (Humalog Kwikpen ([facility])) 0 unit SC ACHS [facility]; Protocol Last Admin: 09/28/19 06:31 Dose: 1 unit Documented by: Labetalol HCl (Trandate) 100 mg PO BID [facility] Last Admin: 09/28/19 09:30 Dose: 100 mg Documented by: Losartan Potassium (Cozaar) 50 mg PO DAILY [facility] Last Admin: 09/28/19 09:30 Dose: 50 mg Documented by: Magnesium Hydroxide (Milk Of Magnesia) 30 ml PO DAILY PRN PRN PRN Reason: Constipation Last Admin: 09/27/19 14:06 Dose: 30 ml Documented by: Melatonin (Melatonin) 3 mg PO QHS [facility] Last Admin: 09/27/19 21:56 Dose: 3 mg Documented by: Nitroglycerin (Nitrostat) 0.4 mg SUBLINGUAL Q5M PRN PRN Reason: CARDIAC/CHEST PAIN Ondansetron HCl (Zofran) 4 mg IV Q8H PRN PRN PRN Reason: NAUSEA/VOMITING Pantoprazole Sodium (Protonix) 40 mg PO BID [facility] Last Admin: 09/28/19 09:30 Dose: 40 mg Documented by: Polyethylene Glycol (Miralax) 17 gm PO DAILY [facility] Last Admin: 09/28/19 09:38 Dose: Not Given Documented by: Psyllium Hydrophilic Mucilloid (Metamucil) 1 packet PO DAILY PRN PRN PRN Reason: Constipation Sertraline HCl (Zoloft) 50 mg PO DAILY [facility] Last Admin: 09/28/19 09:30 Dose: 50 mg Documented by: Sodium Chloride () 10 - 40 ml IV UD PRN PRN Reason: SALINE FLUSH Last Admin: 09/28/19 09:30 Dose: 10 ml Documented by: Tamsulosin HCl (Flomax) 0.4 mg PO DAILY [facility] Last Admin: 09/28/19 09:30 Dose: 0.4 mg Documented by: Warfarin Sodium (Coumadin (Pbkc)) 2 mg PO DAILY@1700 [facility] Last Admin: 09/27/19 15:59 Dose: 2 mg Documented by: Zolpidem Tartrate (Ambien (Generic)) 5 mg PO QHS PRN PRN PRN Reason: SLEEP AID Last Admin: 09/27/19 00:16 Dose: 5 mg Documented by: Discharge Diet: Low fat/ Low Cholesterol, 1800 Calorie Control Diet, 2000 mg Sodium Diet Discharge Activity: Return to Normal Activity Home Medications: Medications to take at Discharge Atorvastatin Calcium [Lipitor] 80 mg PO QHS 04/26/16 Furosemide [Lasix] 40 mg PO BID 04/26/16 Insulin Lispro [Humalog Kwikpen] 16 unit SQ TIDCM 04/26/16 Labetalol [Trandate (Beta Fab)] 100 mg PO BID 04/26/16 Insulin Glargine [Lantus SoloStar Pen] 40 units SQ QHS 10/25/17 Albuterol Inhaler [Ventolin Hfa] 2 puff INHALATION Q4H PRN PRN 10/26/17 Cyanocobalamin (Vitamin B-12) [Vitamin B-12] 1,000 mcg PO DAILY 10/26/17 Glimepiride [Amaryl] 8 mg PO BREAKFAST 10/26/17 Losartan Potassium 50 mg PO DAILY 10/26/17 Polyethylene Glycol 3350 [Miralax] 17 gm PO DAILY 10/26/17 Potassium Chloride 10 meq PO BID 10/26/17 Senna/Docusate Sodium [Senokot-S] 1 tab PO BID PRN PRN 10/26/17 Sertraline HCl [Zoloft] 50 mg PO DAILY 10/26/17 Tamsulosin HCl [Flomax] 0.4 mg PO DAILY 10/26/17 Zolpidem Tartrate [Ambien] 10 mg PO QHS PRN PRN 10/26/17 Acetaminophen [Tylenol] 500 mg PO Q8H PRN PRN 09/26/19 Ascorbic Acid 500 mg PO DAILY 09/26/19 Ferrous Sulfate, Dried [Iron] 159 mg PO DAILY 09/26/19 Hydroxyzine HCl 25 mg PO Q6H PRN PRN 09/26/19 Pantoprazole Sodium 40 mg PO BID 09/26/19 Primary Care Physician: Omid Ordonez MD [Primary Care Provider] - Please follow up with your Primary Care Physician in: within 1-2 weeks Please Follow Up With: Rosalind Shaw MD When: On Monday for procedure. Call Office [phone] to set-up appt Disposition: Home Minutes spent on discharge:: 45 Patient Condition:: Stable Medical Necessity - Tobacco Use Smoking Status: Unknown if ever smoked Meaningful Use Info Meaningful Use Diagnoses (Choose all that apply): CHF - CHF TANA/ARB ordered at discharge?: Yes Documented LVEF (%): 57 Inpatient E&M: 09454 Disch Hosp
[2019-09-28 12:36] LABS: Bedside Glucose 223 mg/dL (70-110)
--- NOTE | 2019-09-30 13:17 | CASEMGMT ---
NELLIE BLISS F/U Phone Call LACE: Maame Strata: 3 Discharge date: 09/28/2019 Call date: 09/30/2019 Call time: 1310 Admission dx: Acute CHF Pt states has been doing 'great' since home from the hospital. Pt states no questions regarding discharge instructions or medications at this time. Pt states that his son is setting up a time for him to come get COVID testing tomorrow so that he can have OP procedure on 10/02/2019. Pt states that [facility] 'done me a good job' and 'I hope to get one them papers to fill out to give some gold stars.' Pt states no further questions/concerns/needs at this time. SStaten NELLIE BLISS
== END 2019-09-28 16:12 | disposition home or self-care (01) | DRG 291 ==
LOC: ED 08:30 → PCU 10:29
PROVIDERS: Nurse Practitioner Family; Admitting Provider Internal Medicine; Emergency Provider Emergency Medicine; PCP Family Medicine; Visit Provider Internal Medicine
DX: I11.0 Hypertensive heart disease with heart failure (principal); J96.01 Acute respiratory failure with hypoxia; K92.1 Melena; D62 Acute posthemorrhagic anemia; I48.19 Other persistent atrial fibrillation; L97.812 Non-pressure chronic ulcer of other part of right lower leg with fat layer exposed; R79.1 Abnormal coagulation profile; I50.23 Acute on chronic systolic (congestive) heart failure; E11.65 Type 2 diabetes mellitus with hyperglycemia; I25.10 Atherosclerotic heart disease of native coronary artery without angina pectoris; E11.59 Type 2 diabetes mellitus with other circulatory complications; I87.2 Venous insufficiency (chronic) (peripheral); I87.8 Other specified disorders of veins; E78.5 Hyperlipidemia, unspecified; N40.0 Benign prostatic hyperplasia without lower urinary tract symptoms; E66.9 Obesity, unspecified; Z68.32 Body mass index [BMI] 32.0-32.9, adult; Z95.0 Presence of cardiac pacemaker; Z95.4 Presence of other heart-valve replacement; Z79.4 Long term (current) use of insulin; Z79.01 Long term (current) use of anticoagulants; Z79.899 Other long term (current) drug therapy
CPT/HCPCS: 36415; 36600; 71045; 80048; 80053; 82274; 82803; 82962; 83540; 83550; 83880; 84484; 85014; 85018; 85025; 85610; 93005; 93306; 94002; 94640; 97162; 97166; 97802; 99251; 99284; J1756; Q9957; A4216; G0463; J1940

== ENCOUNTER → 2020-01-01 | Outpatient (CLI) | payer MEDICARE, OTHER, SELFPAY ==
[2019-09-26 11:18] VITALS: BMI 32.8
[2019-10-02] VITALS (8 sets, daily range): BP systolic 117–144; BP diastolic 44–59; PULSE 59–66; RESP 16; TEMP 36.3–36.6; O2SAT 96–98; BMI 31.1
--- NOTE | 2019-10-02 | GASB_PTH ---
PATIENT: PANCHO WOO Jr. LOC: [facility] U#:[id number] AGE/SX: 84/M ROOM: RE01/01/[address]: Dr. Rosalind Shaw MD : [id number] BED: DIS: 01/01/2020 SPEC #: [id number] RECD: 10/02/19 12:13 STATUS: MARIANA RENirmala #: [id number] AARON: 10/02/19 00:[address]: Rosalind Shaw DEPT: SURGICAL PATHOLOGY RECD BY: Bhanu Lee ENTERED: 10/02/19 12:13 SP TYPE: Gastric Bx OTHR DR: Dr. Omid Ordonez MD Tissues: A - Gastric mucous membrane B - Gastric mucous membrane Procedures: Special Stain Group II Surgery Specimen Level IV Alcian Blue/PAS (control) HEADER OPER[place] [place] DIAGNOSIS: Anemia TISSUE SUBMITTED: A - Antrum biopsy for histo and H. pylori, B - GE junction biopsy MICROSCOPIC DIAGNOSIS A. Antrum biopsy: Mild chronic active gastritis. See comment. B. 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 Chronic inflammation. Negative for dysplasia. See comment. SJ:rg 10/03/19 COMMENT A. The results of immunohistochemistry for Helicobacter pylori will be reported separately ([id number]). B. Alcian blue/PAS stain with matched control is used in the evaluation of the specimen. MICROSCOPIC DESCRIPTION Slides are reviewed. GROSS DESCRIPTION A - Received in fixative is one container labeled with the patient's name and designated antrum biopsy. The specimen consists of one irregular fragment of light valiente soft tissue that measures 0.4 x 0.3 x 0.1 cm. The specimen is totally submitted in one cassette. B - Received in fixative is one container labeled with the patient's name and designated GE junction biopsy. The specimen consists of one irregular fragment of light valiente soft tissue that measures 0.3 x 0.3 x 0.1 cm. The specimen is totally submitted in one cassette. / EVERETTE:leticia 10/02/19 TC:2 CPT: 56104 x2, 87394
--- NOTE | 2019-10-02 07:49 | HP.PCM_ITS ---
History of Present Illness Date of Admission: 10/02/19 The patient is a 84 year old M presents for an EGD due to anemia. Patient also has a past medical history of chronic atrial fibrillation, Hypertension, Type 2 DM, s/p aortic valve replacement was recently discharged from [facility] where he received treatment for supratherapeutic INR and severe anemia and from [facility] this weekend. Patient presented to [facility] from home as he was home for only for less than 4 days from his [facility] stay when he complains of progressive shortness of breath, orthopnea, and PND. He had difficulty following up as a result of the current COVID?19 pandemic. He was found to be in acute hypoxic respiratory failure and was saturating well on BiPAP at [facility] during his stay. He was started on Lasix with improvement. He continued to diurese and was off oxygen the next day. Patient was found to have drop in hemoglobin from 9.1-8.0. Repeat H&H is very stable. Patient's Coumadin was held. FOBT was positive, current bowel movements were brown when he left the hospital. He was started on pantoprazole twice daily. He was discharged on oral iron. He received IV Venofer in the hospital prior to discharge. States sometimes has black or brown bowel movements but really does not look. Patient is never had a previous colonoscopy. Past Medical/Surgical History - Planned Operation Planned Operative Procedure/s: EGD Date of Operative Procedure: 10/02/19 Permit Signed: Yes S.O.S: No Joint Center Patient: No Have Therapy Plans Been Arranged Once You Are Discharged From the Hospital: No Would You Like Me [facility]: No - Previous Hospitalizations/Surgeries HX Hospitalizations: Yes - 09/27/19 HX of Surgeries: pacemaker, aortic valve repair, stents Any Problems With Anesthesia: No You/Your Family Experience Fever (Hyperthermia) With Anes: No Cholinesterase deficiency: No - Cardiovascular Hx Chest Pain within Last 2 months: No Hx of Irregular Heartbeat and/or Afib: Yes - [facility] Hx Heart Attack: No Hx Congestive Heart Failure: Yes Hx Rheumatic Fever: No Hx Hypertension: Yes - ON MED Hx Internal Defibrillator: No Hx Pacemaker: Yes Hx Cardiac Catheterization: Yes What facility was last heart cath performed: [facility] Date of last Heart Cath: 2016 Hx Cardiac Surgery/Stents/Etc.: Yes Hx Stress Test: Yes - YRS AGO HX Edema: Yes Hx Pain in Legs when Walking/Leg Cramps: No - Respiratory Chronic Cough: No HX of Shortness of Breath: Yes Hoarseness: No Hx Chronic Obstructive Pulmonary Disease (COPD): No Hx Asthma: No Hx Emphysema: No Hx Sleep Apnea: No Hx Oxygen Use at Home: No Hx Respiratory Tract Infection/Cold (presently): No Do You Snore Loudly (louder than talking or can be heard): Yes Do You Often Feel Tired/ Fatigued/ Sleepy Dring Daytime?: No Has Anyone Observed You Stop Breathing During Sleep?: No Result (for STOP score): Positive Hx Smoking: No Smoking Status: Unknown if ever smoked - Gastrointestinal Hx Gastroesophageal Reflux: No Hx Gastrointestinal Disorders: No Hx Gastrointestinal Bleed: No Hx Ulcer: No Hx Hiatal Hernia: No Difficulty Chewing/Swallowing: No Recent Onset of Swallowing Problems: No Special diet followed at home: No Hx Unplanned Weight Loss of 20#: No HX Unplanned Weight Gain of 20#: No - Neurological Hx Seizures: No HX Syncope/Blackout Spells/Unconsciousness: No Hx CVA/Stroke: No Hx Transient Ischemic Attacks (TIA): No Hx Multiple Sclerosis: No Hx Parkinson's Disease: No Hx Head/Neck Injury: No Hx Headaches: No Hx Back Injury/Pain: Yes Recent Onset of Speech Difficulty: No Restless Legs: No Does patient have nerve stimulator: No - Blood Disorder Hx Leukemia: No Bleeding Tendencies: Yes Hx Deep Vein Thrombosis: No Hx High Cholesterol: Yes Blood Transmitted Disease: No Hx Hepatitis: No Hx Cirrhosis: No Hx Anemia: No Hx Blood Disorders: No - Genitourinary Hx Renal Disease: No Hx Dialysis: No - Musculoskeletal Hx Arthritis: Yes Hx Rheumatoid Arthritis: No Hx Gout: No Recent Onset of an Orthopedic Problem: No - Endocrine Hx Diabetes: Yes Insulin: Yes Thyroid Disease: No Hx Steroid Therapy: No - Psycho/Social Hx Substance Use: No Hx Alcohol Use: No Hx Anxiety: No Hx Depression: No Mental Illness: No Hx Dementia: No - Miscellaneous Hx Cancer: No Recent Exposure to Contagious Disease: No Active MRSA: No Hx of C-Diff: No Any Loose Teeth: No Allergies metoprolol [From Toprol XL] Allergy (Verified 10/02/19 07:50) Other simvastatin Allergy (Verified 10/02/19 07:50) Other spironolactone Allergy (Verified 10/02/19 07:50) Other morphine Adverse Reaction (Verified 10/02/19 07:50) Other confusion, crazy sulfamethoxazole [From Bactrim] Adverse Reaction (Verified 10/02/19 07:50) Unknown trimethoprim [From Bactrim] Adverse Reaction (Verified 10/02/19 07:50) Unknown - Discharge Is Pt Admitted From a Residential, or a Long Term: No Who Could Help: NIECE After D/C, Where Do you Plan to Go: Return Home - From the PAT History Number of Risk Factors: 2 - Physical Exam Vitals/I&O's: Body Mass Index (BMI) 32.8 General: Alert, Oriented x3, Cooperative, No apparent distress HEENT: Atraumatic Lungs: Normal air movement Cardiovascular: Regular Rhythm, - - Pacer in place Abdomen: Soft, Non Tender, Non-Distended Extremities: No clubbing, No cyanosis Neurological: Cranial nerves II-XII grossly intact Psych/Mental Status: Normal Affect Laboratory Results 10/01/19 11:55: COVID-19 (VANDANA) Not Detected Assessment/Plan All Active Problems (Last Reviewed 12/24/18 @ 10:33 by Christy Badillo) Acute CHF (Acute) Supratherapeutic INR (Acute) Acute respiratory failure with hypoxia (Acute) 84-year-old male with anemia, melena, positive fecal occult blood plan for EGD Procedure Criteria Procedure Type: Elective Procedure Essential: No COVID Risk Discussion: The surgeon/proceduralist and patient have discussed in detail the risk of exposure to and/or potential harm posed by the COVID-19 virus with having a surgery/procedure at this time versus the risk of delaying the surgery/procedure. It is not possible to know either the risk of delaying the surgery or procedure or chance of getting an infection with perfect accuracy, but a joint decision was made between the patient and the surgeon/proceduralist to proceed at this time with the scheduled surgery/procedure as indicated on the consent form. Surgery Risks - Colonoscopy I discussed with the patient the risks of the procedure: Yes Risks Include but are not Limited To: Risks include but are not limited to: Bleeding, perforation requiring further surgery. Patient no further questions this time.
[2019-10-02] MEDS: Lactated Ringers 1,000 ML 100 ML IV (08:08)
[2019-10-02 08:16] LABS: Bedside Glucose 105 mg/dL (70-110)
--- NOTE | 2019-10-02 08:45 | IMM_PTH ---
PATIENT: PANCHO WOO Jr. LOC: [facility] U#:[id number] AGE/SX: 84/M ROOM: RE01/01/[address]: Dr. Rosalind Shaw MD : 1935 BED: DIS: 01/01/2020 SPEC #: [id number] RECD: 10/02/19 12:42 STATUS: MARIANA REQ #: [id number] AARON: 10/02/19 08:[address]: Rosalind Shaw DEPT: IMMUNOHISTOCHEMISTRY RECD BY: Uzma Muniz ENTERED: 10/02/19 12:43 SP TYPE: IMMUNO OTHR DR: Dr. Omid Ordonez MD Tissues: A - Stomach, NOS Procedures: H Pylori (initial) PHYSICIAN & INSTITUTION [place] [id number] SPECIMEN INFORMATION: Tissue Source: A - Antrum biopsy Clinical Info: Anemia Specimen Number: [id number] CPT code: 48315 METHODOLOGY: Deparaffinized sections of prefer/formalin-fixed tissue or PAP/DQ stained slides are incubated with monoclonal/polyclonal antibodies/oligonucleotide probes. Localization is made via biotin free immunoperoxidase method. Appropriate controls are performed and reacted as expected. Results on target cell population are indicated in the following table: RESULTS: ANTIBODY / CLONE RESULT Block A H Pylori (polyclonal) negative These tests were developed and their performance characteristics determined by [facility]. They may not have been cleared or approved by the U.S. Food and Drug Administration. The FDA has determined that such clearance or approval is not necessary. INTERPRETATION: A. Antrum, biopsy: Negative for Helicobacter pylori organisms. SJ:leticia 10/04/19
--- NOTE | 2019-10-02 09:05 | OP.EGD_ITS ---
Patient Name: Troy Perez Procedure Date: 10/02/2019 8:43 AM Date of : 1935 Age: 84 Procedure: Upper GI endoscopy Indications: Iron deficiency anemia, Heme positive stool, Melena Providers: Rosalind Shaw MD Referring MD: Omid Ordonez Medicines: Monitored Anesthesia Care Patient Profile: This is an 84 year old male. Complications: No immediate complications. Procedure: Pre-Anesthesia Assessment: - Prior to the procedure, a History and Physical was performed, and patient medications and allergies were reviewed. The patient's tolerance of previous anesthesia was also reviewed. The risks and benefits of the procedure and the sedation options and risks were discussed with the patient. All questions were answered, and informed consent was obtained. Prior Anticoagulants: The patient has taken Coumadin (warfarin), last dose was 5 days prior to procedure. ASA Grade Assessment: Per anesthesia. After reviewing the risks and benefits, the patient was deemed in satisfactory condition to undergo the procedure. After obtaining informed consent, the endoscope was passed under direct vision. Throughout the procedure, the patient's blood pressure, pulse, and oxygen saturations were monitored continuously. The gastroscope was introduced through the mouth, and advanced to the second part of duodenum. The upper GI endoscopy was accomplished without difficulty. The patient tolerated the procedure well. Scope In: 8:50:30 AM Scope Out: 8:55:09 AM Total Procedure Duration Time 0 hours 4 minutes 39 seconds Findings: Localized mucosal changes characterized by an abnormal appearance suspicious for Pineda's were found at the gastroesophageal junction. Biopsies were taken with a cold forceps for histology. Moderately erythematous mucosa was found in the gastric antrum. Biopsies were taken with a cold forceps for histology. Biopsies were taken with a cold forceps for Helicobacter pylori cultures. The duodenal bulb, first portion of the duodenum and second portion of the duodenum were normal. A small hiatal hernia was present. Impression: - Abnormal (rule out Pineda's esophagus) mucosa in the esophagus. Biopsied. - Erythematous mucosa in the antrum. Biopsied. - Normal duodenal bulb, first portion of the duodenum and second portion of the duodenum. - Small hiatal hernia. Recommendation: - Await pathology results. - Discharge patient to home. - Advance diet as tolerated. - Continue present medications. - Use Protonix (pantoprazole) 40 mg PO BID for 2 months. Procedure Code(s): --- Professional --- 03850, Esophagogastroduodenoscopy, flexible, transoral; with biopsy, single or multiple Diagnosis Code(s): --- Professional --- K22.8, Other specified diseases of esophagus K31.89, Other diseases of stomach and duodenum D50.9, Iron deficiency anemia, unspecified R19.5, Other fecal abnormalities K92.1, Melena (includes Hematochezia) CPT copyright 2017 [employer]. All rights reserved. The codes documented in this report are preliminary and upon knot bumper review may be revised to meet current compliance requirements. MD Rosalnid Leslie MD 10/02/2019 9:04:57 AM This report has been signed electronically. Number of Addenda: 0 Note Initiated On: 10/02/2019 8:43 AM
--- NOTE | 2019-10-02 09:05 | OP.CCLET_ITS ---
10/02/2019 Omid Ordonez Re : Upper GI endoscopy procedure for Troy Ana Dear José Luis This procedure was performed on Wednesday, October 02, 2019. My impressions and recommendations are as follows: Impressions : - Abnormal (rule out Pineda's esophagus) mucosa in the esophagus. Biopsied. - Erythematous mucosa in the antrum. Biopsied. - Normal duodenal bulb, first portion of the duodenum and second portion of the duodenum. - Small hiatal hernia. Recommendations : - Await pathology results. - Discharge patient to home. - Advance diet as tolerated. - Continue present medications. - Use Protonix (pantoprazole) 40 mg PO BID for 2 months. My findings are described in the full procedure note, which is enclosed. If I can be of further assistance, please feel free to contact me at Doctor phone number(s): , Work: . Sincerely, MD Rosalind Leslie MD 10/02/2019 9:04:57 AM This report has been signed electronically.
[2019-10-03 06:35] LABS: Prothrombin Time Fingerstick 18.2 SEC (11.9-14.4)
[2020-01-01 15:35] LABS: Prothrombin Time (Protime)PT. 34.9 SECONDS (11.7-14.9)
[2020-01-01 15:43] LABS: International Normalized Ratio 3.5
== END | disposition home or self-care (01) ==
LOC: EN 10-02 07:32 → AC 10-02 07:33 → LABSPEC 15:17
PROVIDERS: Anesthesiology; PCP Family Medicine; Referring Provider Family Medicine; Visit Provider Surgery
PROC: 0DJ08ZZ Inspection of Upper Intestinal Tract, Via Natural or Artificial Opening Endoscopic (ICD-10-PCS; CPT 43235; principal; 2019-10-02 08:40)
DX: K22.70 Barrett's esophagus without dysplasia (principal); K29.50 Unspecified chronic gastritis without bleeding; K44.9 Diaphragmatic hernia without obstruction or gangrene; D50.9 Iron deficiency anemia, unspecified; K92.1 Melena; I44.7 Left bundle-branch block, unspecified; I27.20 Pulmonary hypertension, unspecified; I48.20 Chronic atrial fibrillation, unspecified; I11.0 Hypertensive heart disease with heart failure; I50.9 Heart failure, unspecified; E78.00 Pure hypercholesterolemia, unspecified; E11.9 Type 2 diabetes mellitus without complications; Z95.0 Presence of cardiac pacemaker; Z95.2 Presence of prosthetic heart valve; Z79.4 Long term (current) use of insulin; Z79.01 Long term (current) use of anticoagulants; Z79.899 Other long term (current) drug therapy; Z11.59 Encounter for screening for other viral diseases
CPT/HCPCS: 43239; 36416; 82962; 85610; 87635; 88305; 88313; 88342; G2023; J7120; J2405; U0003

== ENCOUNTER 2020-02-26 16:37 | Emergency (ER) | payer OTHER, MEDICARE, SELFPAY ==
[2019-10-02 07:52] VITALS: BMI 31.1
[2020-02-26 16:38] VITALS: BP 190/75; PULSE 60; RESP 16; TEMP 35.9; O2SAT 97; BMI 31.1
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
[2020-02-26] MEDS: Ondansetron 4 MG/2 ML Vial IV (17:25)
[2020-02-26] MEDS: fentaNYL 100 MCG/2 ML Ampul 25 MCG IV ×2 (17:25→19:12)
[2020-02-26] MEDS: Dextrose 50%-Water 25 GM/50 ML DISP.SYRIN IV (17:25)
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
[2020-02-26 17:36] LABS: Absolute Lymphocyte Count 1.23 X10^3/uL (0.83-4.51); Absolute Neutrophil Count 7.7 X10^3/uL (2.0-7.7); Basophil# 0.04 X10^3/uL; Basophil% 0.4 % (0-1); Eosinophil# 0.14 X10^3/uL; Eosinophils% 1.4 % (0-5); Hematocrit 38.9 % (40-54); Hemoglobin 12.6 g/dL (13.0-16.5); Lymphocyte # 1.23 X10^3/ul (4.0); Lymphocyte % 12.6 % (19-41); Mean Corp Hgb Conc 32.4 g/dL (32-36); Mean Corpuscular Hgb 29.4 pg (27.0-32.0); Mean Corpuscular Volume 90.9 fL (80-94); Mean Platelet Vol. 9.5 fl (6.2-12.0); Monocyte# 0.59 X10^3/uL; NRBC Flagged by Analyzer 0 % (0-5); Neutrophil # 7.65 X10^3/uL (2.7-7.7); Neutrophil % 78.5 % (47-70); Platelet Count 161 K/mm3 (150-450); RBC Distribution Width CV 15.4 % (11.6-14.6); RBC Distribution Width SD 51.2 fl (35.1-43.9); Red Blood Count 4.28 M/mm3 (4.6-6.2); White Blood Count 9.8 K/mm3 (4.4-11.0)
--- NOTE | 2020-02-26 17:47 | ED.RN ---
PT STATED HE DID NOT FEEL WELL AGAIN, FELT BLOOD SUGAR WAS DROPPING AGAIN. PT STOPPED RESPONDING TO VERBAL COMMANDS, EYES CLOSED, SNORING RESPIRATIONS. DEXTROSE GIVEN IV. PT ALERT AND ORIENTED AGAIN WITHIN 5 MINUTES. MD AWARE. SANDWICH AND WYATT PAT GIVEN.
[2020-02-26 17:50] LABS: Bedside Glucose 63 mg/dL (70-110)
[2020-02-26 17:50] LABS: Bedside Glucose 115 mg/dL (70-110)
[2020-02-26 17:51] LABS: Anion Gap 4 (5-15); BUN 38 mg/dL (7-18); BUN/Creat Ratio 30.4 RATIO (10-20); Calcium,Total 8.8 mg/dL (8.5-10.1); Chloride 106 mmol/L (98-107); Creatinine, Serum 1.25 mg/dL (0.70-1.30); EST Glomerular Filtration Rate 59 mL/min (>60); Est Glom Filt Rate - Afr Amer 71 mL/min (>60); Glucose 190 mg/dL (74-106); Potassium 3.7 mmol/L (3.5-5.1); Sodium Level 140 mmol/L (136-145)
[2020-02-26 17:57] LABS: International Normalized Ratio 2.1; Prothrombin Time (Protime)PT. 23.3 SECONDS (11.7-14.9)
[2020-02-26 18:13] VITALS: BP 191/67; PULSE 60; RESP 14; O2SAT 99
[2020-02-26 18:16] LABS: Bedside Glucose 98 mg/dL (70-110)
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
[2020-02-26 19:20] LABS: Bedside Glucose 133 mg/dL (70-110)
== END 2020-02-26 21:30 | disposition skilled nursing facility (03) ==
LOC: ED 18:41
PROVIDERS: Emergency Provider Emergency Medicine
DX: E11.649 Type 2 diabetes mellitus with hypoglycemia without coma (principal); I48.91 Unspecified atrial fibrillation; D64.9 Anemia, unspecified; Z79.01 Long term (current) use of anticoagulants; Z79.4 Long term (current) use of insulin; Z51.5 Encounter for palliative care
CPT/HCPCS: 71045; 80048; 82962; 85025; 85610; 96374; 96375; 96376; 99285; A4216; J2405